=== PATIENT | female | born 1930 | race Caucasian/White ===

== ENCOUNTER 2016-11-15 13:32 | Emergency (ER) | payer MEDICARE ==
--- NOTE | 2016-11-15 15:07 | PN ---
Progress Note - Progress Note Note: Laceration Cleaned with 500cc, used 1% lidocaine local on face, and topical on finger Nose: 1 cm laceration on bridge of nose, superifical, cleaned and applied glue to area Face: 1 cm by 1/2 cm laceration placed 1 suture lip: does not cross linh border, 1/2 cm suture, placed 1 suture nonabsorbable left middle finger: 1 cm flap like laceration placed 1 suture and splinted with finger splint
--- NOTE | 2016-11-15 15:34 | RAD ---
HISTORY: Head trauma COMPARISONS: None TECHNIQUE: Multiple contiguous axial CT scans were obtained of the head without intravenous contrast. FINDINGS: HEMORRHAGE/INFARCT: There is no hemorrhage or acute infarct. MASSES/SHIFT: There is no mass or shift. EXTRA-AXIAL SPACES: There are no extra-axial fluid collections. SULCI AND VENTRICLES: The sulci and ventricles are normal in size and position for the patient's stated age. CEREBRUM: There is hypoattenuation of the periventricular and subcortical white matter. BRAINSTEM: There are no focal parenchymal abnormalities. CEREBELLUM: There are no focal parenchymal abnormalities. VESSELS: Atheromatous PARANASAL SINUSES: The paranasal sinuses are clear. ORBITS: The orbits are unremarkable. BONES AND SOFT TISSUE: No bone or soft tissue abnormalities are noted. OTHER: None IMPRESSION: NO ACUTE INTRACRANIAL PATHOLOGY. CHRONIC SMALL VESSEL ISCHEMIC CHANGES.
--- NOTE | 2016-11-15 15:36 | RAD ---
HISTORY: Trauma, trauma COMPARISONS: None TECHNIQUE: Multiple contiguous axial CT scans were obtained of the cervical spine without intravenous contrast, with coronal and sagittal multiplanar reformations. FINDINGS: BRAIN: The visualized brain is unremarkable CENTRAL CANAL: Evaluation of the central canal is limited on CT technique; however, there is no obvious canalicular mass or epidural hemorrhage. ALIGNMENT: There is straightening with mild reversal of the normal cervical lordosis. VERTEBRAL BODIES: There is diffuse osteopenia. There is no displaced fracture. There is multilevel anterolateral marginal osteophyte formation. JOINTS: There is diffuse uncovertebral and facet osteoarthritic change. 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 There is no subluxation or dislocation. MUSCULATURE: Unremarkable INTERVERTEBRAL DISCS: There is diffuse loss of intervertebral disc height. AXIAL IMAGES: On axial images, there is neural foraminal narrowing at C6-C7. There is no significant osseous central canal stenosis. SOFT TISSUES: There is calcification of the carotid bifurcations. The prevertebral fat stripe is preserved. OTHER: None. IMPRESSION: DEGENERATIVE DISC DISEASE AND OSTEOARTHRITIS. NO ACUTE OSSEOUS INJURY TO THE CERVICAL SPINE
--- NOTE | 2016-11-15 15:38 | RAD ---
INDICATION: Facial trauma. COMPARISON: There are no prior studies available for comparison. TECHNIQUE: Contiguous axial sections of the axial images of the facial bones were obtained and reconstructed in the coronal and sagittal planes. FINDINGS: Soft tissue swelling is noted anterior to the left frontal bone and sinus. The ngo of the orbits and maxillary sinuses appear intact. The zygomatic arches appear intact. There is no evidence for a fracture of the mandible. There appears to be a nondisplaced fracture of the nasal bone bone age indeterminate. There is moderate deviation of the nasal septum toward the right side. The pterygoid plates appear intact. The paranasal sinuses appear clear. IMPRESSION: NONDISPLACED FRACTURE OF THE RIGHT NASAL BONE, AGE INDETERMINATE.
[2016-11-15 16:43] LABS: Hematocrit 33 % (35-47); Hemoglobin 10.9 g/dl (12.0-16.0); Mean Corpuscular HGB Conc 33 g/dl (31-36); Mean Corpuscular Hemoglobin 28 pg (27-31); Mean Corpuscular Volume 85 fL (80-97); Mean Platelet Volume 10 um3 (7.4-10.4); Red Blood Count 3.88 10^6/ul (4.0-5.4); Red Cell Distribution Width 20 % (10.5-15); White Blood Count 8.9 10^3/ul (3.5-10.8)
[2016-11-15 16:58] LABS: Albumin 3.7 g/dL (3.2-5.2); BUN/Creatinine Ratio 16.9 (8-20); Calcium 9.8 mg/dL (8.6-10.3); EGFR Non-African American 65.3 (>60); Globulin 3.7 g/dL (2-4); Potassium 3.6 mmol/L (3.5-5.0); Total Bilirubin 0.5 mg/dL (0.2-1.0); Total Protein 7.4 g/dL (6.4-8.9)
[2016-11-15] MEDS ORDERED: HYDROcodone/ACETAMIN 5-325 MG* 1 TAB PO ONE (17:15)
[2016-11-15 17:45] VITALS: BP 160/59
--- NOTE | 2016-11-15 17:51 | ED ---
raya Diaz Timothy, scribed for Leon Sepulveda MD on 11/15/16 at 1406 . Head Injury - HPI Summary HPI Summary: Arlene Lopez is an 86 yo female presenting to [facility] with abrasions on her lip, nose, right hand and near her left eye, as well as a laceration inside her mouth S/P a fall from standing height after tripping on a curb at 1300 today. She states she did not lose consciousness, but did loosen some teeth. She did not bite her tongue. She denies any visual changes, neck pain, shoulder pain, hip pain. She is on blood thinners. Her MHx includes Afib, HLD, pacemaker, CAD, mild dementia, anorexia nervosa, arthritis. Her PCP is Dr. Reyez. - History Of Current Complaint Stated Complaint: FALL / FACIAL LAC Time Seen by Provider: 11/15/16 14:01 Hx Obtained From: Patient Mechanism Of Injury: Fall From A Standing Position Onset/Duration: Started Minutes Ago, Still Present Onset of Pain: Immediate Severity Currently: Moderate Severity Initially: Moderate Pain Scale Used: 0-10 Numeric Location of Head Injury: Frontal Location: Discrete At: - face Associated Signs And Symptoms: Other: - abrasion to lip, left eye region, nose. Laceration inside mouth Anticoagulant Therapy: Blood Thinners - Allergies/Home Medications Allergies/Adverse Reactions: Allergies Allergy/AdvReac Type Severity Reaction Status Date / Time No Known Allergies Allergy Verified 12/15/14 20:35 PMH/Surg Hx/FS Hx/Imm Hx Endocrine/Hematology History: Denies: Hx Diabetes, Hx Anemia Cardiovascular History: Reports: Hx Auto Implanted Cardiovert Defib - pacemaker , Hx Coronary Artery Disease - CHOLESTEROL CONTROL WITH MEDS, Hx Hypercholesterolemia, Hx Pacemaker/ICD, Other Cardiovascular Problems/Disorders Denies: Hx Congestive Heart Failure, Hx Hypertension GI History: Denies: Hx Jaundice History: Denies: Hx Renal Disease Musculoskeletal History: Reports: Hx Arthritis - BILATERAL KNEES Sensory History: Reports: Hx Cataracts - BILATERAL, Hx Contacts or Glasses - READING GLASSES Denies: Hx Hearing Aid Opthamlomology History: Reports: Hx Cataracts - BILATERAL, Hx Contacts or Glasses - READING GLASSES Neurological History: Reports: Hx Dementia - mild - Surgical History Surgery Procedure, Year, and Place: PACEMAKER, MRI CONTRAINDICATED Hx Anesthesia Reactions: No Infectious Disease History: No Infectious Disease History: Denies: Traveled Outside the [place] in Last 30 Days - Family History Known Family History: Positive: Cardiac Disease, Hypertension Negative: Diabetes - Social History Alcohol Use: None Substance Use Type: Reports: None Smoking Status (MU): Never Smoked Tobacco Review of Systems Constitutional: Negative Eyes: Other - abrasion near left eye ENT: Other - laceration inside mouth Positive: Dental Pain - broken teeth Cardiovascular: Negative Respiratory: Negative Gastrointestinal: Negative Genitourinary: Negative Musculoskeletal: Negative Positive: Other - abrasion to upper lip, nose, left hand Positive: Headache Psychological: Normal All Other Systems Reviewed And Are Negative: Yes Physical Exam - Summary Physical Exam Summary: The patient is well-nourished in no acute distress and in no acute pain. The skin is warm and dry and skin color reflects adequate perfusion. There is a 0.5 cm laceration on her left third finger proximal to the IP joint. HEENT: The head is normocephalic and atraumatic. The pupils are equal and reactive. The conjunctivae are clear and without drainage. Nares are patent and without drainage. Mouth reveals moist mucous membranes and the throat is without erythema and exudate. The left frontal incisor is loose. There is a laceration on the inside of the right side of her upper lip, as well as the outside of the right side of her upper lip. The external ears are intact. The ear canals are patent and without drainage. The tympanic membranes are intact. There is no hemotympanum. There is ecchymosis around the left eye, with no step- off. Neck is supple with full range of motion and non-tender. There are no carotid bruits. There is no neck vein distension. Respiratory: Chest is non-tender. Lungs are clear to auscultation and breath sounds are symmetrical and equal. Cardiovascular: Hear is regular rate and rhythm. There is no murmur or rub auscultated. There is no peripheral edema and pulses are symmetrical and equal. Abdomen: The abdomen is soft and non-tender. There are normal bowel sounds heard in all four quadrants and there is no organomegaly palpated. Musculoskeletal: There is no back pain noted. Extremities are non-tender with full range of motion. There is good capillary refill. There is pedal edema but no calf tenderness elicited. Neurological: Patient is alert and oriented to person, place and time. The patient has symmetrical motor strength in all four extremities. Cranial nerves are grossly intact. Deep tendon reflexes are symmetrical and equal in all four extremities. Psychiatric: The patient has an appropriate affect and does not exhibit any anxiety or depression. Triage Information Reviewed: Yes Vital Signs On Initial Exam: Initial Vitals Temp Pulse Resp BP Pulse Ox 97.7 F 63 20 167/66 98 11/15/16 13:54 11/15/16 13:54 11/15/16 13:54 11/15/16 13:54 11/15/16 13:54 Vital Signs Reviewed: Yes Diagnostics - Vital Signs Vital Signs Temp Pulse Resp BP Pulse Ox 11/15/16 13:54 97.7 F 63 20 167/66 98 - Laboratory Lab Results: Lab Results 11/15/16 11/15/16 11/15/16 Range/Units 16:34 16:34 16:34 WBC 8.9 (3.5-10.8) 10^3/ul RBC 3.88 L (4.0-5.4) 10^6/ul Hgb 10.9 L (12.0-16.0) g/dl Hct 33 L (35-47) % MCV 85 (80-97) fL MCH 28 (27-31) pg MCHC 33 (31-36) g/dl RDW 20 H (10.5-15) % Plt Count 258 (150-450) 10^3/ul MPV 10 (7.4-10.4) um3 Neut % (Auto) 69.7 (38-83) % Lymph % (Auto) 19.7 L (25-47) % [place] % (Auto) 7.2 (1-9) % Eos % (Auto) 2.1 (0-6) % Baso % (Auto) 1.3 (0-2) % Absolute Neuts (auto) 6.2 (1.5-7.7) 10^3/ul Absolute Lymphs (auto) 1.8 (1.0-4.8) 10^3/ul Absolute Monos (auto) 0.6 (0-0.8) 10^3/ul Absolute Eos (auto) 0.2 (0-0.6) 10^3/ul Absolute Basos (auto) 0.1 (0-0.2) 10^3/ul Absolute Nucleated RBC 0 10^3/ul Nucleated RBC % 0 INR (Anticoag Therapy) 1.42 H (0.89-1.11) Sodium 141 (133-145) mmol/L Potassium 3.6 (3.5-5.0) mmol/L Chloride 101 (101-111) mmol/L Carbon Dioxide 32 (22-32) mmol/L Anion Gap 8 (2-11) mmol/L BUN 14 (6-24) mg/dL Creatinine 0.83 (0.51-0.95) mg/dL Est GFR ( Amer) 84.0 (>60) Est GFR (Non-Af Amer) 65.3 (>60) BUN/Creatinine Ratio 16.9 (8-20) Glucose 115 H (70-100) mg/dL Calcium 9.8 (8.6-10.3) mg/dL Total Bilirubin 0.50 (0.2-1.0) mg/dL AST 19 (13-39) U/L ALT 11 (7-52) U/L Alkaline Phosphatase 96 (34-104) U/L Total Protein 7.4 (6.4-8.9) g/dL Albumin 3.7 (3.2-5.2) g/dL Globulin 3.7 (2-4) g/dL Albumin/Globulin Ratio 1.0 (1-3) Result Diagrams: 11/15/16 16:34 11/15/16 16:34 Lab Statement: Any lab studies that have been ordered have been reviewed, and results considered in the medical decision making process. - CT brain CT Interpretation: No Acute Changes - IMPRESSION: NO ACUTE INTRACRANIAL PATHOLOGY. CHRONIC SMALL VESSEL ISCHEMIC CHANGES. CT Interpretation Completed By: Radiologist C-Spine CT Interpretation: No Acute Changes - IMPRESSION: DEGENERATIVE DISC DISEASE AND OSTEOARTHRITIS. NO ACUTE OSSEOUS INJURY TO THE CERVICAL SPINE CT Interpretation Completed By: Radiologist Maxillofacial CT Interpretation: Positive (See Comments) - IMPRESSION: NONDISPLACED FRACTURE OF THE RIGHT NASAL BONE, AGE INDETERMINATE. CT Interpretation Completed By: Radiologist Re-Evaluation - Re-Evaluation First Eval Re-Evaluation Time: 16:28 Change: Improved Comment: Pt has had her lacerations sutured and glued. She is informed of the results of her imaging studies. Second Eval Re-Evaluation Time: 17:01 Change: Unchanged Comment: Pt is agreeable to current course of Tx. She does not want any pain medication Rx's sent to a pharmacy at this time. Head Injury Course/Dx Assessment/Plan: Arlene Lopez is an 86 yo female presenting to [facility] with facial abrasions, loose teeth, and laceration inside her mouth S/P tripping and falling on a curb at 1300 today. Pt refused an X-ray of her left hand. Lacerationa and abrasion sterilization and repair, and splinting was performed by Edwina COLEY. After clinical examination, review of her imaging studies ( see documentation) and review of her lab work, she will be discharged home with appropriate diagnoses and instructions. She does not want any prescription for pain medications sent to a pharmacy at this time. - Diagnoses Differential Diagnosis/HQI/PQRI: Concussion Without LOC, Intracranial Bleed, Laceration, Nasal Fracture, Skull Fracture, Zygomatic Fracture, Other Provider Diagnoses: Head contusion, facial laceration with repair, Laceration of left middle finger , nasal laceration with repair, Nasal fracture, Loose, teeth - Physician Notifications Discussed Care Of Patient With: 1706 - Dr. Reyez (hospitalist group [facility]) - discussed Pt condition and Pt's warfarin Rx. Pt takes 2.5 mg warfarin Tuesday and Tuesday, 1 mg other days. She may cancel her appointment for tomorrow and reschedule for 5 days and 10 days for suture removal. Discharge - Discharge Plan Condition: Stable Disposition: HOME Patient Education Materials: Nasal Fracture (ED), Laceration (ED), Acute Dental Trauma (ED), Contusion in Adults (ED), Splint Care (ED), Scalp Contusion in Adults (ED), Facial Contusion (ED), Facial Laceration (ED) Referrals: Murtzaa Reyez MD [Primary Care Provider] - 2 Days Additional Instructions: Please follow up with your primary care physician and a dentist regarding your visit to the emergency department today. You may cancel your appointment with Dr. Reyez tomorrow, and instead reschedule for removal of your facial sutures in 5 days, and your hand suture within 2 weeks. Have facial sutures removed in 5 days, hand suture needs to be removed in 10-14 days Keep finger in splint for 5 days Keep sutures clean dry for 24 hours Do not scrub areas Glue will fall off on own Return to the emergency department with any new or recurring symptoms. The documentation as recorded by the raya wetzel Timothy accurately reflects the service I personally performed and the decisions made by me, Leno Sepulveda MD.
== END 2016-11-15 17:44 | disposition home or self-care (01) ==
LOC: ED 13:32
DX: S00.93XA Contusion of unspecified part of head, initial encounter (principal); S02.2XXA Fracture of nasal bones, initial encounter for closed fracture; S61.213A Laceration without foreign body of left middle finger without damage to nail, initial encounter; S01.21XA Laceration without foreign body of nose, initial encounter; S00.511A Abrasion of lip, initial encounter; K08.89 Other specified disorders of teeth and supporting structures; W19.XXXA Unspecified fall, initial encounter; Y93.9 Activity, unspecified; Y92.9 Unspecified place or not applicable
CPT/HCPCS: 36415; 70450; 70486; 72125; 80053; 85025; 85610; 99282

== ENCOUNTER 2016-11-30 12:30 | Inpatient (IN) | payer MEDICARE ==
[2016-11-30] MEDS ORDERED: NS 0.9% 1000 ML* 1,000 ML IV ONE ×2 (13:11→17:07)
[2016-11-30 13:24] LABS: Hematocrit 35 % (35-47); Hemoglobin 11.2 g/dl (12.0-16.0); Mean Corpuscular HGB Conc 32 g/dl (31-36); Mean Corpuscular Hemoglobin 28 pg (27-31); Mean Corpuscular Volume 85 fL (80-97); Mean Platelet Volume 10 um3 (7.4-10.4); Red Blood Count 4.07 10^6/ul (4.0-5.4); Red Cell Distribution Width 19 % (10.5-15); White Blood Count 22.2 10^3/ul (3.5-10.8)
[2016-11-30 13:25] LABS: Add Diff/Slide Review? Slide Review Added; Comments Flag Yes
[2016-11-30 13:36] LABS: ALT 21 U/L (7-52); AST 39 U/L (13-39); Albumin 3.6 g/dL (3.2-5.2); Alkaline Phosphatase 96 U/L (34-104); Anion Gap 6 mmol/L (2-11); BUN/Creatinine Ratio 20.3 (8-20); Blood Urea Nitrogen 14 mg/dL (6-24); CO2 Carbon Dioxide 30 mmol/L (22-32); Calcium 9.7 mg/dL (8.6-10.3); Chloride 100 mmol/L (101-111); Creatine Kinase 367 U/L (10-223); EGFR Non-African American 80.9 (>60); Globulin 3.7 g/dL (2-4); Glucose 145 mg/dL (70-100); Lipase < 10 U/L (11.0-82.0); Magnesium 1.9 mg/dL (1.9-2.7); Potassium 3.2 mmol/L (3.5-5.0); Sodium 136 mmol/L (133-145); Total Protein 7.3 g/dL (6.4-8.9)
[2016-11-30 13:48] LABS: Troponin I 0.07 ng/mL (<0.04)
--- NOTE | 2016-11-30 13:52 | RAD ---
Indication: Head injury. CT of the brain was performed without IV contrast. Ventricular structures are midline. No midline shift is noted. The extraction spaces are unremarkable. There is no evidence of intracranial mass or hemorrhage. There is hyperostosis of the frontal bones bilaterally which is unchanged. When compared to previous exam of November 15, 2016 no significant change is noted. Mastoid air cells and paranasal sinuses are otherwise unremarkable. Multiple metallic fragments are noted in the right temporal scalp. IMPRESSION: No intracranial mass or hemorrhage is noted. Chronic ischemic White matter change is noted.
--- NOTE | 2016-11-30 13:55 | RAD ---
INDICATION: Cervical pain with palpation post fall yesterday. COMPARISON: Recent exam of November 15, 2016 CT. TECHNIQUE: Multidetector CT images foramen magnum to lung apices without contrast. Multiplanar reformation. REPORT: Few foci of gas within the veins most likely reflects sequela of preceding venipuncture. Negative for soft tissue hematoma. Negative for cervical vertebral fracture or facet subluxation. Multilevel degenerative spondylosis and facet joint osteoarthritis. At C3-C4 uncinate process spurring and facet joint osteoarthritis results in severe RIGHT foraminal stenosis. At C4-C5 there is mild dorsal spondylitic ridging which results in mild impression on the ventral margin of the thecal sac. Negative for significant acquired central canal or foraminal stenosis. At C5-C6 dorsal spondylitic ridging results in only slight impression on the ventral margin of the thecal sac. Uncinate process spurring and facet joint osteoarthritis results in mild LEFT foraminal stenosis. At C6-C7 dorsal spondylitic ridging results in mild acquired central canal stenosis. Uncinate process spurring and facet joint osteoarthritis results in moderate bilateral foraminal stenosis. IMPRESSION: Negative for traumatic cervical spine injury. 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
[2016-11-30 14:02] LABS: TSH (Thyroid Stimulating Horm) 0.43 mcIU/mL (0.34-5.60)
[2016-11-30 14:05] LABS: Tear Drop Cells 1+; Toxic Granulation 1+
--- NOTE | 2016-11-30 14:53 | RAD ---
Indication: Recurrent pain left hip pain after fall. Single view of the chest demonstrates cardiomegaly. Pacemaker leads are in place. Mild interstitial prominence is noted consistent with vascular congestion. No alveolar consolidation is noted. IMPRESSION: Cardiomegaly with interstitial edema consistent with vascular congestion. Pacemaker leads are in place.
--- NOTE | 2016-11-30 14:54 | RAD ---
INDICATION: Hip pain. Fall. COMPARISON: CT pelvis December 22, 2014 TECHNIQUE: An AP view of the pelvis and AP views of the hip in neutral and abducted position were obtained FINDINGS: Bones: There are no acute bony findings. There is underlying osteopenia Joint spaces: There is mild symmetric narrowing about both hip joint spaces with mild sclerosis about the acetabula. SI joints/symphysis: The SI joints and symphysis are intact. Other: Vascular calcifications IMPRESSION: NO PLAIN RADIOGRAPHIC EVIDENCE OF HIP FRACTURE
[2016-11-30] MEDS ORDERED: Ondansetron INJ* 2 MG/ML VIAL IV PRN (18:09)
--- NOTE | 2016-11-30 18:13 | ED ---
Heath Diaz Billy, scribed for Terrell Mathews MD on 11/30/16 at 1354 . Adult Trauma - HPI Summary HPI Summary: Patient is an 86 year-old female coming to [facility] for evaluation of a fall approximately 12 hours ago. Her son found the patient on the floor of the living room today, and the patient states that she fell after brushing her feet and was unable to pick herself back up. She denies any LOC or syncope; she says she "just went down." Son states that the patient was found laying on her right side. Patient does not know if she hit her head, but she reports neck pain. Left hip pain, as well. Denies any chest pain or abdominal pain. Son states that the patient was vomiting yesterday. - History of Current Complaint Chief Complaint: ED Stated Complaint: FALL Time Seen by Provider: 11/30/16 13:02 Hx Obtained From: Patient, Family/Kitchen Runner - son Mechanism of Injury: Fall Loss of Consciousness: no loss of consciousness Onset/Duration: Started Hours Ago Onset Severity: Moderate Current Severity: Moderate Pain Intensity: 3 Pain Scale Used: 0-10 Numeric Location: Neck, Extremities Aggravating Factor(s): Movement Alleviating Factor(s): Nothing Associated Signs & Symptoms: Negative: Chest Pain, Abdominal Pain, Loss of Consciousness - Additional Pertinent History Primary Care Physician: [id number] - Allergy/Home Medications Allergies/Adverse Reactions: Allergies Allergy/AdvReac Type Severity Reaction Status Date / Time No Known Allergies Allergy Verified 12/15/14 20:35 Home Medications: Home Medications Calcium Carbonate-Cholecalcife [Calcium 600+D3 600-400 mg-Unit] 1 tab PO DAILY 11/30/16 [History Confirmed 11/30/16] Cholecalciferol TAB* [Vitamin D TAB*] 1,000 unit PO DAILY 11/30/16 [History Confirmed 11/30/16] Diltiazem HCl Extended Release [Diltiazem HCl ER] 180 mg PO DAILY 11/30/16 [ History Confirmed 11/30/16] Docusate CAP* [Colace Cap*] 100 mg PO BID 11/30/16 [History Confirmed 11/30/16] Ferrous Sulfate TAB* 325 mg PO DAILY 11/30/16 [History Confirmed 11/30/16] Multivitamins/Minerals TAB* [Theragran/minerals TAB*] 1 tab PO DAILY 11/30/16 [ History Confirmed 11/30/16] Hardy-3 Fatty Acids (Nf) [Fish Oil (NF)] 1,000 mg PO DAILY 11/30/16 [History Confirmed 11/30/16] Simvastatin TAB(NF) [Zocor(NF)] 20 mg PO BEDTIME 11/30/16 [History Confirmed 12/13] Warfarin TAB(*) [Coumadin TAB(*)] 2.5 mg PO MOTUWETHFRSA 11/30/16 [History Confirmed 11/30/16] Warfarin TAB(*) [Coumadin TAB(*)] 5 mg PO HATCH 11/30/16 [History Confirmed ] PMH/Surg Hx/FS Hx/Imm Hx Endocrine/Hematology History: Denies: Hx Diabetes, Hx Anemia Cardiovascular History: Reports: Hx Auto Implanted Cardiovert Defib - pacemaker , Hx Coronary Artery Disease - CHOLESTEROL CONTROL WITH MEDS, Hx Hypercholesterolemia, Hx Pacemaker/ICD, Other Cardiovascular Problems/Disorders Denies: Hx Congestive Heart Failure, Hx Hypertension GI History: Denies: Hx Jaundice History: Denies: Hx Renal Disease Musculoskeletal History: Reports: Hx Arthritis - BILATERAL KNEES Sensory History: Reports: Hx Cataracts - BILATERAL, Hx Contacts or Glasses - READING GLASSES Denies: Hx Hearing Aid Opthamlomology History: Reports: Hx Cataracts - BILATERAL, Hx Contacts or Glasses - READING GLASSES Neurological History: Reports: Hx Dementia - mild - Surgical History Surgery Procedure, Year, and Place: PACEMAKER, MRI CONTRAINDICATED Hx Anesthesia Reactions: No Infectious Disease History: No Infectious Disease History: Denies: Traveled Outside the [place] in Last 30 Days - Family History Known Family History: Positive: Cardiac Disease, Hypertension Negative: Diabetes - Social History Alcohol Use: None Substance Use Type: Reports: None Smoking Status (MU): Never Smoked Tobacco Review of Systems Negative: Chest Pain Positive: Vomiting - yesterday. Negative: Abdominal Pain Positive: Other - neck pain, left hip pain Negative: Syncope All Other Systems Reviewed And Are Negative: Yes Physical Exam Triage Information Reviewed: Yes Vital Signs On Initial Exam: Initial Vitals Pulse Resp BP Pulse Ox 90 24 167/78 100 11/30/16 12:36 11/30/16 12:36 11/30/16 12:36 11/30/16 12:36 Vital Signs Reviewed: Yes Appearance: Positive: Well-Appearing, No Pain Distress Skin: Positive: Warm, Skin Color Reflects Adequate Perfusion, Dry, Other - Abrasion/ecchymosis of the right knee. ENT: Positive: Other - Dry oral mucosa Neck: Positive: Supple, Nontender Respiratory/Lung Sounds: Positive: Clear to Auscultation, Breath Sounds Present Cardiovascular: Positive: IRR Abdomen Description: Positive: Nontender, Soft Bowel Sounds: Positive: Present Musculoskeletal: Positive: Pain @ - Left hip, Other - She is able to move both lower extremities, although they are generally weak. Neurological: Positive: Normal, Sensory/Motor Intact, Alert, Oriented to Person Place, Time Psychiatric: Positive: Normal, Affect/Mood Appropriate AVPU Assessment: Alert Diagnostics - Vital Signs Vital Signs Temp Pulse Resp BP Pulse Ox 11/30/16 12:54 98.9 F 93 17 146/70 98 11/30/16 12:36 90 24 167/78 100 - Laboratory Lab Results: Lab Results 11/30/16 11/30/16 11/30/16 Range/Units 13:00 13:00 13:00 WBC 22.2 H (3.5-10.8) 10^3/ul RBC 4.07 (4.0-5.4) 10^6/ul Hgb 11.2 L (12.0-16.0) g/dl Hct 35 (35-47) % MCV 85 (80-97) fL MCH 28 (27-31) pg MCHC 32 (31-36) g/dl RDW 19 H (10.5-15) % Plt Count 221 (150-450) 10^3/ul MPV 10 (7.4-10.4) um3 Neut % (Auto) 86.1 H (38-83) % Lymph % (Auto) 6.0 L (25-47) % [place] % (Auto) 7.5 (1-9) % Eos % (Auto) 0 (0-6) % Baso % (Auto) 0.4 (0-2) % Absolute Neuts (auto) 19.1 H (1.5-7.7) 10^3/ul Absolute Lymphs (auto) 1.3 (1.0-4.8) 10^3/ul Absolute Monos (auto) 1.7 H (0-0.8) 10^3/ul Absolute Eos (auto) 0 (0-0.6) 10^3/ul Absolute Basos (auto) 0.1 (0-0.2) 10^3/ul Absolute Nucleated RBC 0.01 10^3/ul Nucleated RBC % 0 Toxic Granulation 1+ Normal RBC Morphology Not Reportable Tear Drop Cells 1+ Elliptocytes 2+ INR (Anticoag Therapy) 1.65 H (0.89-1.11) APTT 29.3 (26.0-36.3) seconds Sodium 136 (133-145) mmol/L Potassium 3.2 L (3.5-5.0) mmol/L Chloride 100 L (101-111) mmol/L Carbon Dioxide 30 (22-32) mmol/L Anion Gap 6 (2-11) mmol/L BUN 14 (6-24) mg/dL Creatinine 0.69 (0.51-0.95) mg/dL Est GFR ( Amer) 104.0 (>60) Est GFR (Non-Af Amer) 80.9 (>60) BUN/Creatinine Ratio 20.3 H (8-20) Glucose 145 H (70-100) mg/dL Lactic Acid (0.5-2.0) mmol/L Calcium 9.7 (8.6-10.3) mg/dL Magnesium 1.9 (1.9-2.7) mg/dL Total Bilirubin 1.00 (0.2-1.0) mg/dL AST 39 (13-39) U/L ALT 21 (7-52) U/L Alkaline Phosphatase 96 (34-104) U/L Total Creatine Kinase 367 H (10-223) U/L CK-MB (CK-2) 5.4 (0.6-6.3) ng/mL Troponin I 0.07 H* (<0.04) ng/mL C-Reactive Protein 157.70 H (< 5.00) mg/L B-Natriuretic Peptide ( - 100) pg/mL Total Protein 7.3 (6.4-8.9) g/dL Albumin 3.6 (3.2-5.2) g/dL Globulin 3.7 (2-4) g/dL Albumin/Globulin Ratio 1.0 (1-3) Lipase < 10 L (11.0-82.0) U/L TSH 0.43 (0.34-5.60) mcIU/mL 11/30/16 11/30/16 Range/Units 13:00 13:00 WBC (3.5-10.8) 10^3/ul RBC (4.0-5.4) 10^6/ul Hgb (12.0-16.0) g/dl Hct (35-47) % MCV (80-97) fL MCH (27-31) pg MCHC (31-36) g/dl RDW (10.5-15) % Plt Count (150-450) 10^3/ul MPV (7.4-10.4) um3 Neut % (Auto) (38-83) % Lymph % (Auto) (25-47) % [place] % (Auto) (1-9) % Eos % (Auto) (0-6) % Baso % (Auto) (0-2) % Absolute Neuts (auto) (1.5-7.7) 10^3/ul Absolute Lymphs (auto) (1.0-4.8) 10^3/ul Absolute Monos (auto) (0-0.8) 10^3/ul Absolute Eos (auto) (0-0.6) 10^3/ul Absolute Basos (auto) (0-0.2) 10^3/ul Absolute Nucleated RBC 10^3/ul Nucleated RBC % Toxic Granulation Normal RBC Morphology Tear Drop Cells Elliptocytes INR (Anticoag Therapy) (0.89-1.11) APTT (26.0-36.3) seconds Sodium (133-145) mmol/L Potassium (3.5-5.0) mmol/L Chloride (101-111) mmol/L Carbon Dioxide (22-32) mmol/L Anion Gap (2-11) mmol/L BUN (6-24) mg/dL Creatinine (0.51-0.95) mg/dL Est GFR ( Amer) (>60) Est GFR (Non-Af Amer) (>60) BUN/Creatinine Ratio (8-20) Glucose (70-100) mg/dL Lactic Acid 1.9 (0.5-2.0) mmol/L Calcium (8.6-10.3) mg/dL Magnesium (1.9-2.7) mg/dL Total Bilirubin (0.2-1.0) mg/dL AST (13-39) U/L ALT (7-52) U/L Alkaline Phosphatase (34-104) U/L Total Creatine Kinase (10-223) U/L CK-MB (CK-2) (0.6-6.3) ng/mL Troponin I (<0.04) ng/mL C-Reactive Protein (< 5.00) mg/L B-Natriuretic Peptide 404 H ( - 100) pg/mL Total Protein (6.4-8.9) g/dL Albumin (3.2-5.2) g/dL Globulin (2-4) g/dL Albumin/Globulin Ratio (1-3) Lipase (11.0-82.0) U/L TSH (0.34-5.60) mcIU/mL Result Diagrams: 11/30/16 13:00 11/30/16 13:00 Lab Statement: Any lab studies that have been ordered have been reviewed, and results considered in the medical decision making process. - Radiology CXR Radiology Interpretation Completed By: Radiologist - Cardiomegaly with interstitial edema consistent with vascular congestion. Pacemaker leads are in place. Left Hip Xray Radiology Interpretation Completed By: Radiologist - Cardiomegaly with interstitial edema consistent with vascular congestion. Pacemaker leads are in place. - CT C-spine CT Interpretation Completed By: Radiologist - Negative for traumatic cervical spine injury. 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 Brain CT Interpretation Completed By: Radiologist - No intracranial mass or hemorrhage is noted. Chronic ischemic White matter change is noted. - EKG 1251 EKG Interpretation: NSR 90 bpm, diffuse T-wave flattening Adult Trauma Course/Dx - Course Course Of Treatment: NO CRITICAL CARE TIME. Assessment/Plan: ADMIT HOSPITALIST STABLE. - Diagnoses Provider Diagnoses: Weakness, Elevated troponin, Dehydration, CHF (congestive heart failure) - Physician Notifications Discussed Care Of Patient With: Dr. Hayes (hospitalist) @ 1500. Dr. Mihaela Hinton (PCP on-call for Dr. Reyez) @ 1709: patient care discussed. Requests hospitalist to admit. Discharge - Discharge Plan Condition: Stable Disposition: ADMITTED TO [facility] documentation as recorded by the Heath wetzel Billy accurately reflects the service I personally performed and the decisions made by me, Terrell Mathews MD.
[2016-11-30] MEDS ORDERED: NS 0.9% 1000 ML* 1,000 ML IV SCH (18:15)
[2016-11-30] MEDS ORDERED: Potassium Chlor TAB* 20 MEQ TAB.ER PO ONE (18:20)
[2016-11-30 19:00] LABS: Urine Bacteria Absent (Absent); Urine Bilirubin Negative (Negative); Urine Glucose 1+(50 mg/dL) (Negative); Urine Nitrite Negative (Negative)
--- NOTE | 2016-11-30 19:39 | RAD ---
INDICATION: Right shoulder pain after a fall the previous evening COMPARISON: None. TECHNIQUE: 3 views of the right shoulder were obtained. FINDINGS: The adequately corticated bones are in normal alignment. Degenerative changes include mild sclerotic change of the bony glenoid labrum. There is mild marginal osteophyte formation at the acromioclavicular joint. No fracture, dislocation or focal bony abnormality is seen. IMPRESSION: MILD DEGENERATIVE CHANGES WITHOUT RADIOGRAPHICALLY APPARENT FRACTURE OR DISLOCATION. If the patient's symptoms persist, follow-up imaging is recommended.
--- NOTE | 2016-11-30 19:43 | RAD ---
Indication: Pain. Comparison: Left hip from the same date acquired at 1426 hours Technique: 6 views of the left femur, a single view of the knee and 3 views of the left lower leg were obtained at 1904 hours. Report: Degenerative changes include mild narrowing of the hip joint with sclerotic change of the acetabular roof. Mild degenerative changes of the left knee include medial greater than lateral narrowing of the compartments. No large knee effusion is identified. The visualized bones are adequately corticated and well aligned. There is no acute fracture, dislocation or other focal abnormality. Incidental note is made of coarse calcification of the superficial femoral artery and to a lesser extent the popliteal and infrapopliteal arteries. IMPRESSION: 1. Degenerative changes of the left hip and knee as described above without radiographically apparent fracture or dislocation. 2. Incidentally noted is advanced calcified atherosclerosis of the visualized left lower extremity arteries. Please correlate to signs and symptoms of arterial insufficiency. If the patient's symptoms persist, follow-up imaging is recommended.
[2016-11-30] MEDS: Atorvastatin* 10 MG TAB PO SCH (20:36)
[2016-11-30] MEDS: Warfarin TAB(*) 2.5 MG PO SCH (20:36)
[2016-11-30] MEDS: Metoprolol Tartrate TAB* 50 mg PO SCH (20:36)
[2016-11-30] MEDS: Acetaminophen TAB* 325 MG PO PRN (20:40)
[2016-11-30] MEDS: Docusate CAP* 100 MG PO SCH (20:41)
[2016-11-30 21:03] LABS: Hematocrit 35 % (35-47); Hemoglobin 11.3 g/dl (12.0-16.0); Mean Corpuscular HGB Conc 32 g/dl (31-36); Mean Corpuscular Hemoglobin 28 pg (27-31); Mean Corpuscular Volume 86 fL (80-97); Mean Platelet Volume 10 um3 (7.4-10.4); Red Blood Count 4.11 10^6/ul (4.0-5.4); Red Cell Distribution Width 19 % (10.5-15); White Blood Count 21.1 10^3/ul (3.5-10.8)
[2016-11-30 21:04] LABS: Add Diff/Slide Review? Slide Review Added; Comments Flag Yes
[2016-11-30 21:18] LABS: BUN/Creatinine Ratio 21.3 (8-20); Calcium 9.6 mg/dL (8.6-10.3); EGFR African American 119.9 (>60); EGFR Non-African American 93.2 (>60); Potassium 3.1 mmol/L (3.5-5.0)
[2016-11-30 21:24] LABS: Troponin I 0.09 ng/mL (<0.04)
--- NOTE | 2016-12-01 00:11 | HP ---
HISTORY AND PHYSICAL: DATE OF ADMISSION: 11/30/16 PRIMARY CARE PROVIDER: Murtaza Reyez MD. ATTENDING PHYSICIAN WHILE IN THE HOSPITAL: Baljit William MD* (report dictated by Edgardo Castro NP). CHIEF COMPLAINT: Fall. HISTORY OF PRESENT ILLNESS: Ms. Lopez is an 86-year-old female patient that fell yesterday. Actually last night she went to the bathroom. She finished brushing her teeth. She went to sit down and she was putting a cream on her mouth. She got up from the chair after doing this and then she was walking back to her bedroom and she sustained a fall. She fell down. She was unable to get up. She had pain on mostly her right side. She fell and landed on her right side. She did not pass out. She denied any chest pain prior to or after. Denied having any recent fevers or chills. She was unable to reach anybody, so she was on the floor she thinks for between 10 and 12 hours. She was supposed to go to a podiatry appointment today. Her son tried calling her several times, she did not meat pickler, so he decided to go evaluate her and he found her on the floor. The patient says that recently a couple of days ago she did feel nauseous. She had an episode of vomiting. She vomited in her cereal in the morning. She says her stomach had been feeling off, but she denied having any pain. She denies having any fevers or chills, but she was concerned because of the weakness and fall, so she came in, was evaluated in the ER. It was noted that she had an elevated white count, her troponin was mildly elevated and the hospitalist service was asked to evaluate for admission. She denied having any dysuria. Denied having any frequency. There was no loss of consciousness, but admitted to ks, she just could not get up. PAST MEDICAL HISTORY: Significant for: 1. AFib. 2. Hypertension. 3. Hypothyroid. 4. Anxiety. 5. Hyperlipidemia. 6. Diverticulitis. 7. Arthritis. 8. Diabetes. PAST SURGICAL HISTORY: 1. She has had a pacemaker placement. 2. Cataracts extraction. 3. . 4. She has had a temporal artery biopsy. HOME MEDICATIONS: Include: 1. Warfarin 5 mg on Tuesday. 2. Warfarin 2.5 mg Tuesday, Tuesday, Tuesday, , Tuesday, Tuesday. 3. Zocor 20 mg at bedtime. 4. [place]-3 fatty acid 1000 mg daily. 5. Multivitamin 1 tablet daily. 6. Lopressor 50 mg p.o. b.i.d. 7. Synthroid 112 mcg daily. 8. Lasix 20 mg daily. 9. Ferrous sulfate 325 mg daily. 10. Colace 100 mg p.o. b.i.d. 11. Diltiazem 180 mg daily. 12. Vitamin D 1000 units daily. 13. Calcium carbonate 1 tablet p.o. daily. ALLERGIES TO MEDICATIONS: Include no known drug allergies. FAMILY HISTORY: Mother had a history of CVA. Father had a history of cardiac disease. SOCIAL HISTORY: The patient does not smoke. She does not drink. Surrogate decision maker is her son. REVIEW OF SYSTEMS: There is no documented fever. She denies having any chills. There is no significant weight change. There was no double vision. There is no ear discharge. She denies having any rhinorrhea. There is no sore throat. No thyroid enlargement. She denied having any chest pain or any orthopnea. No nocturnal dyspnea. There is no abdominal pain. There was one episode with nausea and vomiting. No dysuria. No frequency. There was no loss of consciousness. No pruritus and no skin ulcerations. Review of 14 systems completed, all others negative. PHYSICAL EXAMINATION GENERAL: At this time, Ms. Lopez is an 86-year-old female patient. She is sitting in the ER stretcher. She does not appear to be in any acute distress. VITAL SIGNS: Blood pressure 168/61 with a pulse of 90, respirations 18, O2 sat 96%, and temperature 98.9. HEENT: Head: Atraumatic. Eyes: EOMs intact. Sclerae anicteric and not pale. Throat: Oral mucosa appeared to be dry. No oropharyngeal erythema. NECK: Supple. LUNGS: Clear to auscultation. No wheezes, rales, or rhonchi. HEART: Sounds S1, S2. Irregularly irregular rate. No murmurs, rubs, or gallops ABDOMEN: Soft, flat, and nontender. Bowel sounds present. EXTREMITIES: Pulses 2+ throughout. She has difficulty moving the left lower extremity with passive range of motion. She has a significant amount of pain in the left femur area and knee actually. She is able to move the right extremity with 5/5 strength. NEUROLOGIC: She is awake, alert, and oriented x3. Tongue midline. Baseball Glove Stuffer are equal. No gross focal deficits. SKIN: Intact. She does have an area of ecchymosis to the right shoulder. Otherwise, the skin was intact. LABORATORY DATA AND DIAGNOSTIC STUDIES: Today reveal WBC of 22.2, RBC of 4.07 , hemoglobin of 11.2, hematocrit 35, platelet count 221. The INR was 1.65. PTT of 29.3. The sodium was 136, potassium 3.2, chloride 100, bicarb 30, BUN 14 , creatinine of 0.69, glucose 145, lactic 1.9, calcium 9.7, magnesium 1.9. Total bili 1.0, AST 39, ALT 21, alk phos 96. Her CK was 364. CK-MB 5.4. Troponin 0.07. CRP was 157. BNP of 404. Albumin 3.6. TSH negative. She had a brain CT obtained today which revealed no intracranial mass or hemorrhages noted. There were chronic ischemic white matter changes noted. She had a cervical spine CT which showed impression: Negative for traumatic cervical spine injury. 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 Chest x-ray showed cardiomegaly with interstitial consistent with vascular congestion. Hip/pelvis x-ray showed no plain radiographic evidence of hip fracture. EKG today showed atrial fibrillation, rate of 90. No ST elevations. T-wave inversions were noted at this point. It was reviewed with a previous EKG, it is similar. Old medical records were reviewed. ASSESSMENT AND PLAN: Ms. Lopez is an 86-year-old female patient coming into the ER today with complaints of fall, on evaluation found to have leukocytosis, also found to have an elevated troponin and CRP. We were asked to evaluate for admission. She will be admitted under inpatient status for: 1. Fall with weakness: Etiology is unclear. It sounds like this was a mechanical fall. Fortunately, her CK is normal. She has been on the floor for 10 hours. I think at this point I will order PT, OT. I am concerned though she is having pain on that left lower extremity and she also has some pain on the right shoulder on exam, so I am going to image these 2 extremities to make sure there is no fracture that has not been identified and will continue to monitor this. 2. Atrial fibrillation, rate controlled: Continue medications as prescribed. Her INR is subtherapeutic, but I am not going to bridge her because of the recent trauma. We will continue the warfarin. 3. Hypertension: Continue medications as prescribed. 4. Hypothyroidism: Continue her Synthroid. 5. Leukocytosis: This may be a leukemoid reaction, but her CRP is up, so I think we need to panculture her, try to get a urine. If any source presents itself, I would treat it. For the time being, she is afebrile. I am going to hold off on treating unless there is an obvious source. 6. Anxiety: Continue with supportive care. 7. Hyperlipidemia: Continue statin therapy. 8. History of diabetes: She states she is no longer diabetic. Her glucose here today was 145. Last A1c 2 years ago was 9.8. I will add on another A1c and will continue to monitor her. May need to put her on a sliding scale depending on what that A1c shows while she is here in the hospital. 9. DVT prophylaxis: I will put her on SCDs. Again, the INR is 1.65. We are not going to put her on heparin because of the recent fall. We will follow. 10. Code status: Full code. 11. Fluids, electrolytes, and nutrition: She can have a regular diet. 12. Elevated troponin: She denied chest pain at this point. I will trends these for the time being. If the trend up we may need to consider cardiology input and a echo to look for wall motion abnormalities. Her EKG appears to be at baseline. TIME SPENT: Time spent on the admission was 60 minutes; greater than half the time was spent [id number] with the patient obtaining my history and physical, other half of the time spent going over the plan of care with the patient and implementing plan of care. I did discuss the plan of care with my attending, Dr. William; he is in agreement. EDGARDO CASTRO NP CC: Murtaza Reyez MD* [id number]/[facility] #: [id number] [facility]ITALTanya
[2016-12-01] MEDS: KCL 10 MEQ/50 ML IVPREMIX* 10 MEQ/50 ML BAG IV SCH ×3 (00:22→03:50)
[2016-12-01] MEDS: Acetaminophen TAB* 325 MG PO PRN ×3 (03:54→23:48)
[2016-12-01] MEDS: Levothyroxine TAB* 112 MCG TAB PO SCH (05:54)
[2016-12-01 05:58] LABS: Hematocrit 31 % (35-47); Hemoglobin 10.1 g/dl (12.0-16.0); Mean Corpuscular HGB Conc 33 g/dl (31-36); Mean Corpuscular Hemoglobin 28 pg (27-31); Mean Corpuscular Volume 85 fL (80-97); Mean Platelet Volume 10 um3 (7.4-10.4); Red Blood Count 3.65 10^6/ul (4.0-5.4); Red Cell Distribution Width 19 % (10.5-15)
[2016-12-01 05:59] LABS: Add Diff/Slide Review? Slide Review Added; Comments Flag Yes
[2016-12-01 06:19] LABS: BUN/Creatinine Ratio 24.2 (8-20); Calcium 9.2 mg/dL (8.6-10.3); EGFR African American 117.7 (>60); EGFR Non-African American 91.5 (>60); Potassium 4.3 mmol/L (3.5-5.0)
--- NOTE | 2016-12-01 08:04 | PN ---
Subjective - Subjective Reason for Note: Progress Note History: I learned the history from the patient and also that provided by Edgardo Castro NP in his admitting history and physical. She recently had some digestive issues which included vomiting - her daughter had also had this. She states she fell after she was standing up from her dresser chair and lost her balance. She hit her left shoulder and was on the floor overnight as she couldn't get up due to weakness/pain. She denies any loss of consciousness/fainting. She denies chest pain, dyspnea, palpitations, edema, paroxysmal nocturnal dyspnea or orthopnea. She is oriented person, place, but not time - she knows me by name. She is able to give an account of herself. Today, she has some abdominal discomfort, left shoulder pain. She is feeling weak and cannot raise her legs from the bed. She has some anorexia, but no nausea/vomiting. Active Problems: Active Problems Congestive heart failure of unknown etiology (Acute) I50.9 Elevated troponin I measurement (Acute) R74.8 Fall (Acute) Gait difficulty (Acute) R26.9 Nausea and vomiting (Acute) R11.2 Weakness of both legs (Acute) R29.898 Anticoagulation goal of INR 2 to 3 (Chronic) Z51.81, Z79.01 Atrial fibrillation (Chronic) I48.91 Cardiac pacemaker (Chronic) Z95.0 Diverticulosis (Chronic) K57.90 Essential (primary) hypertension (Chronic) I10 Hyperlipidemia (Chronic) E78.5 Polymyalgia rheumatica (Chronic) M35.3 Primary hypothyroidism (Chronic) E03.9 Prolonged Q-T interval on ECG (Chronic 12/16/14) R94.31 Rectal prolapse (Chronic) K62.3 Type 2 diabetes mellitus (Chronic) Uterine prolapse (Chronic) N81.4 Current Medications: Current Medications Acetaminophen (Tylenol Tab*) 650 mg PO Q4H PRN PRN Reason: FEVER/PAIN Last Admin: 12/01/16 03:54 Dose: 650 mg Atorvastatin Calcium (Lipitor*) 10 mg PO BEDTIME DENISE Last Admin: 11/30/16 20:36 Dose: 10 mg Diltiazem HCl (Cardizem Cd Cap*) 180 mg PO DAILY DENISE Docusate Sodium (Colace Cap*) 100 mg PO BID DENISE Last Admin: 11/30/16 20:41 Dose: 100 mg Ferrous Sulfate (Ferrous Sulfate Tab*) 325 mg PO DAILY [facility] Furosemide (Lasix Tab*) 20 mg PO 1200 [facility] Levothyroxine Sodium (Synthroid Tab*) 112 mcg PO 0600 [facility] Last Admin: 12/01/16 05:54 Dose: 112 mcg Metoprolol Tartrate (Lopressor Tab*) 50 mg PO BID [facility] Last Admin: 11/30/16 20:36 Dose: 50 mg Multivitamins/Minerals (Theragran/Minerals Tab*) 1 tab PO DAILY [facility] Ondansetron HCl (Zofran Inj*) 4 mg IV Q6H PRN PRN Reason: NAUSEA Pharmacy Profile Note (Coumadin Daily Reminder*) 1 note FOLLOW UP 1700 DENISE Warfarin Sodium (Coumadin Tab(*)) 5 mg PO Gil@1700 DENISE PRN Reason: Protocol Warfarin Sodium (Coumadin Tab(*)) 2.5 mg PO MoTuWeThFrSa@1700 DENISE PRN Reason: Protocol Last Admin: 11/30/16 20:36 Dose: 2.5 mg Home Medications: Home Medications Medication Instructions Recorded Confirmed Type Furosemide TAB* [Lasix TAB*] 20 mg PO 1200 04/07/13 11/30/16 History Levothyroxine TAB* [Synthroid TAB*] 112 mcg PO QAM 04/07/13 11/30/16 History Metoprolol Tartrate TAB* 50 mg PO BID 09/10/15 11/30/16 History [Lopressor TAB*] Calcium Carbonate-Cholecalcife 1 tab PO DAILY 11/30/16 11/30/16 History [Calcium 600+D3 600-400 mg-Unit] Cholecalciferol TAB* [Vitamin D 1,000 unit PO DAILY 11/30/16 11/30/16 History TAB*] Diltiazem HCl Extended Release 180 mg PO DAILY 11/30/16 11/30/16 History [Diltiazem HCl ER] Docusate CAP* [Colace Cap*] 100 mg PO BID 11/30/16 11/30/16 History Ferrous Sulfate TAB* 325 mg PO DAILY 11/30/16 11/30/16 History Multivitamins/Minerals TAB* 1 tab PO DAILY 11/30/16 11/30/16 History [Theragran/minerals TAB*] Melrose-3 Fatty Acids (Nf) [Fish Oil 1,000 mg PO DAILY 11/30/16 11/30/16 History (NF)] Simvastatin TAB(NF) [Zocor(NF)] 20 mg PO BEDTIME 11/30/16 11/30/16 History Warfarin TAB(*) [Coumadin TAB(*)] 2.5 mg PO MOTUWETHFRSA 11/30/16 11/30/16 History Warfarin TAB(*) [Coumadin TAB(*)] 5 mg PO GIL 11/30/16 11/30/16 History Allergies: Allergies Allergy/AdvReac Type Severity Reaction Status Date / Time No Known Allergies Allergy Verified 12/15/14 20:35 Objective - Vital Signs Vital Signs: Vital Signs 11/30/16 11/30/16 11/30/16 18:21 18:31 20:00 Temperature 99.3 F 100.5 F Pulse Rate 99 96 Respiratory 20 26 18 Rate Blood Pressure 180/92 162/72 (mmHg) O2 Sat by Pulse 98 94 Oximetry 12/01/16 12/01/16 12/01/16 00:08 03:45 04:03 Temperature 97.9 F 99.3 F Pulse Rate 75 87 Respiratory 16 16 Rate Blood Pressure 125/56 110/78 (mmHg) O2 Sat by Pulse 97 98 Oximetry 12/01/16 07:28 Temperature 98.2 F Pulse Rate 81 Respiratory 26 Rate Blood Pressure 147/73 (mmHg) O2 Sat by Pulse 98 Oximetry - Intake and Output Intake and Output: Intake & Output 11/28/16 11/29/16 11/30/16 12/01/16 11:59 11:59 11:59 11:59 Intake Total 838 Balance 838 Weight 157 lb Intake: IV Fluids 558 NS (0.9%) 558 IVPB 160 NS (0.9%) 160 Oral 120 Other: Estimated Void Medium # Bowel Movements 0 # Voids 1 Intake and Output Start: 11/30/16 18: 21 Freq: DAILY@0600,1400,2200 Status: Active Document 11/30/16 21:50 [id number] (Rec: 11/30/16 21:50 [id number]) Document 12/01/16 05:21 [id number] (Rec: 12/01/16 05:23 [id number]) - Physical Exam General: No Cyanosis, No Anemia, No Jaundice, No Clubbing Eye Exam: bilateral: EOMI Skin: Normal: Rash Head: Yes Normocephalic Lungs and Chest: Yes: Chest Expansion Full, Chest Expansion Symetrica, Percussion Note Resonant, Vessicular Breath Sounds, Other - anterior chest - couldn't sit herself up. No: Crackles, Wheezes, Respiratory Distress, Use of Accessory Muscles Heart Rate and Rhythm: Irregular Additional Cardiovascular: Yes: Normal Heart Sounds, Heart Murmur - systolic murmur LSE and apex 2/6. No: Pedal Edema Abdominal Exam: Yes: Soft, Abdominal Tenderness - right abdomen. No: Distention , Abdominal Mass, Hepatomegaly, Guarding, Rebound Tenderness, Bowel Sounds Present - diminished - Extremities Cranial Nerves II-XII Intact: Yes Limbs: Normal Tone, Normal Coordination - finger/nose, Abnormal Power - Cannot lift either leg from bed - Neuro Orientation: Other - place/person - not time 1916, Spring ? month ?day Speech: Normal Results - Results Lab Results: Laboratory Results - last 24 hr 11/30/16 11/30/16 11/30/16 18:32 18:49 20:56 WBC 21.1 H RBC 4.11 Hgb 11.3 L Hct 35 MCV 86 MCH 28 MCHC 32 RDW 19 H Plt Count 210 MPV 10 Neut % (Auto) 86.5 H Lymph % (Auto) 6.0 L Emmet % (Auto) 7.1 Eos % (Auto) 0 Baso % (Auto) 0.4 Absolute Neuts (auto) 18.3 H Absolute Lymphs (auto) 1.3 Absolute Monos (auto) 1.5 H Absolute Eos (auto) 0 Absolute Basos (auto) 0.1 Absolute Nucleated RBC 0 Nucleated RBC % 0 INR (Anticoag Therapy) Sodium Potassium Chloride Carbon Dioxide Anion Gap BUN Creatinine Est GFR ( Amer) Est GFR (Non-Af Amer) BUN/Creatinine Ratio Glucose Calcium Total Creatine Kinase Troponin I Urine Color Yellow Urine Appearance Clear Urine pH 6.0 Ur Specific Lamont 1.017 Urine Protein 1+(30 mg/dl) H Urine Ketones Trace H Urine Blood Negative Urine Nitrate Negative Urine Bilirubin Negative Urine Urobilinogen Negative Ur Leukocyte Esterase Negative Urine WBC (Auto) Trace(0-5/hpf) Urine RBC (Auto) Absent Ur Squamous Epith Cells Present H Urine Bacteria Absent Urine Glucose 1+(50 mg/dl) H Influenza A (Rapid) Negative Influenza B (Rapid) Negative 11/30/16 11/30/16 12/01/16 20:56 20:56 00:29 WBC RBC Hgb Hct MCV MCH MCHC RDW Plt Count MPV Neut % (Auto) Lymph % (Auto) Emmet % (Auto) Eos % (Auto) Baso % (Auto) Absolute Neuts (auto) Absolute Lymphs (auto) Absolute Monos (auto) Absolute Eos (auto) Absolute Basos (auto) Absolute Nucleated RBC Nucleated RBC % INR (Anticoag Therapy) 1.85 H Sodium 136 Potassium 3.1 L Chloride 101 Carbon Dioxide 26 Anion Gap 9 BUN 13 Creatinine 0.61 Est GFR ( Amer) 119.9 Est GFR (Non-Af Amer) 93.2 BUN/Creatinine Ratio 21.3 H Glucose 140 H Calcium 9.6 Total Creatine Kinase Troponin I 0.09 H* 0.10 H* Urine Color Urine Appearance Urine pH Ur Specific Lamont Urine Protein Urine Ketones Urine Blood Urine Nitrate Urine Bilirubin Urine Urobilinogen Ur Leukocyte Esterase Urine WBC (Auto) Urine RBC (Auto) Ur Squamous Epith Cells Urine Bacteria Urine Glucose Influenza A (Rapid) Influenza B (Rapid) 12/01/16 12/01/16 05:28 05:28 WBC 19.0 H RBC 3.65 L Hgb 10.1 L Hct 31 L MCV 85 MCH 28 MCHC 33 RDW 19 H Plt Count 204 MPV 10 Neut % (Auto) 84.1 H Lymph % (Auto) 7.2 L Emmet % (Auto) 8.4 Eos % (Auto) 0.1 Baso % (Auto) 0.2 Absolute Neuts (auto) 15.9 H Absolute Lymphs (auto) 1.4 Absolute Monos (auto) 1.6 H Absolute Eos (auto) 0 Absolute Basos (auto) 0 Absolute Nucleated RBC 0 Nucleated RBC % 0 INR (Anticoag Therapy) Sodium 135 Potassium 4.3 Chloride 104 Carbon Dioxide 25 Anion Gap 6 BUN 15 Creatinine 0.62 Est GFR ( Amer) 117.7 Est GFR (Non-Af Amer) 91.5 BUN/Creatinine Ratio 24.2 H Glucose 122 H Calcium 9.2 Total Creatine Kinase 168 Troponin I Urine Color Urine Appearance Urine pH Ur Specific Lamont Urine Protein Urine Ketones Urine Blood Urine Nitrate Urine Bilirubin Urine Urobilinogen Ur Leukocyte Esterase Urine WBC (Auto) Urine RBC (Auto) Ur Squamous Epith Cells Urine Bacteria Urine Glucose Influenza A (Rapid) Influenza B (Rapid) Assessment - Problem List Assessment: Patient Problems Congestive heart failure of unknown etiology (Acute) Elevated troponin I measurement (Acute) Fall (Acute) Gait difficulty (Acute) Nausea and vomiting (Acute) Weakness of both legs (Acute) Anticoagulation goal of INR 2 to 3 (Chronic) Atrial fibrillation (Chronic) Cardiac pacemaker (Chronic) Diverticulosis (Chronic) Essential (primary) hypertension (Chronic) Hyperlipidemia (Chronic) Polymyalgia rheumatica (Chronic) Primary hypothyroidism (Chronic) Prolonged Q-T interval on ECG (Chronic 12/16/14) Rectal prolapse (Chronic) Type 2 diabetes mellitus (Chronic) Uterine prolapse (Chronic) SIRS (systemic inflammatory response syndrome) (Acute 12/16/14) Plan: Fall (Acute) Gait difficulty (Acute) Nausea and vomiting (Acute) She had a recent history suggestive of gastroenteritis. She fell after standing up from a chair and was too weak to get herself up. She has evidence of an increased WBC and also CRP. She also has increased BNP and troponin I measurements. I note on 11/15/2016 she had another fall and tripped and feel - hitting her face and sustaining lacerations - she was seen in the ED. Congestive heart failure of unknown etiology (Acute) Elevated troponin I measurement (Acute) SIRS (systemic inflammatory response syndrome) (Acute 12/16/14) Anticoagulation goal of INR 2 to 3 (Chronic) Atrial fibrillation (Chronic) Cardiac pacemaker (Chronic) Diverticulosis (Chronic) Essential (primary) hypertension (Chronic) Hyperlipidemia (Chronic) Polymyalgia rheumatica (Chronic) Primary hypothyroidism (Chronic) Prolonged Q-T interval on ECG (Chronic 12/16/14) Rectal prolapse (Chronic) Type 2 diabetes mellitus (Chronic) Uterine prolapse (Chronic)
[2016-12-01] MEDS: Multivitamins/Minerals TAB PO SCH (09:19)
[2016-12-01] MEDS: Diltiazem CD CAP* 180 MG PO SCH (09:19)
[2016-12-01] MEDS: Metoprolol Tartrate TAB* 50 mg PO SCH ×2 (09:19→20:05)
[2016-12-01] MEDS: Ferrous Sulfate TAB* 325 MG PO SCH (09:19)
[2016-12-01] MEDS: Docusate CAP* 100 MG PO SCH ×3 (09:19→20:04)
[2016-12-01] MEDS: Furosemide TAB* 20 MG PO SCH (11:45)
[2016-12-01] MEDS: Polyethylene Glycol 3350* 17 GM PACKET PO SCH (15:58)
[2016-12-01] MEDS: Warfarin TAB(*) 2.5 MG PO SCH (17:10)
[2016-12-01 17:32] LABS: Hematocrit 30 % (35-47); Hemoglobin 9.7 g/dl (12.0-16.0)
[2016-12-01] MEDS: Atorvastatin* 10 MG TAB PO SCH (20:03)
--- NOTE | 2016-12-02 04:53 | CONS ---
CONSULTATION REPORT: DATE OF CONSULT: 12/01/16 REASON FOR CONSULTATION: Falling and borderline troponins in the setting of chronic atrial fibrillation and pacemaker. CHIEF COMPLAINT: The patient's acute chief complaint is falling and back pain. HISTORY OF PRESENT ILLNESS: Ms. Lopez is an 86-year-old woman who I have followed for many years for chronic atrial fibrillation and for her pacemaker. The patient tells me that 2 weeks ago, she was going to the food mixer [employer] and tripped on the curb and fell hitting her face. She does not think she sought medical attention at that time and then did well until last night. She said she was in the bathroom, went to sit in the chair, was putting some [place] on her face, then stood up from the chair to go to bed. She was walking back to the bedroom and fell. She does not think she lost consciousness. She was unable to get up and she had pain in her back and right side. Per the hospitalist notes, she estimated she was on the floor for up to 12 hours. Her son came by her house and found her on the floor. The patient denied to me that following the initial fall 2 weeks ago, she had headaches or any other problems, but the hospitalist notes state that she has been nauseated and vomiting and had vomiting episodes. The patient denies chest pain, pressure, heaviness, orthopnea, PND and she denied any hematuria, dysuria, change in bowel or bladder habits. Right now, her back is bothering her. PAST MEDICAL HISTORY: The patient has a past medical history of chronic atrial fibrillation, hypertension, dyslipidemia, obesity, hypothyroid disease, degenerative arthritis and type 2 diabetes. She has a past medical history of polymyalgia rheumatica and uses a pessary for vaginal problems. PAST SURGICAL HISTORY: Includes pacemaker implantation, cataract extraction, section and temporal artery biopsy. Her first pacemaker was in 2005, was a Medtronic Impulse. Pacemaker generator change, 09/11/15 (Medtronic Sensia ). CURRENT INPATIENT MEDICATIONS: Include: 1. Tylenol. 2. Lipitor 10 mg a day. 3. Cardizem 180 mg a day. 4. Colace 100 mg b.i.d. 5. Iron sulfate 325 mg a day. 6. Lasix 20 mg a day. 7. Synthroid 112 mcg a day. 8. Lopressor 50 mg b.i.d. 9. Multivitamins. 10. Zofran p.r.n. 11. Coumadin. ALLERGIES: No known drug allergies. FAMILY HISTORY: Both parents had pacemakers. No atherosclerotic disease identified. SOCIAL HISTORY: The patient loves to cook. Nonsmoker and nondrinker. No history of recreational drug use. REVIEW OF SYSTEMS: See history of present illness. All other review of systems unremarkable. PHYSICAL EXAM: The patient is 5 feet 6, weight is 157 pounds, BMI of 25. Currently, blood pressure 138/47, pulse is 60 and regular, oxygen saturation 98 % on room air and temperature 98.2, afebrile since admission. General Appearance: Elderly woman lying in bed, listing a bit to the left, sleepy, but arousable, appropriate, recognizes me. Psychologically, pleasant and cooperative, little more vague than when she was in the office. Neurologically , awake, alert and oriented to person and place. I did not evaluate for time. Speech is articulate. Comprehension is good. Memory seems a little poor, just not her usual sharp self. She is slow to follow commands, but is also worried about precipitating back pain. HEENT: Pupils are equal and round. Mucous membranes moderately moist. Neck without increased JVP. Good carotid pulses without audible bruits. Breath sounds were clear with good effort. No wheezes , rales or rhonchi. Chest and coronary: The pacemaker site and left subclavian spots are well healed and unremarkable. Coronary: S1, S2 regular. A 2-3/6 light peaking systolic murmur heard in the right upper sternal border with radiation. Abdomen: Flat. Active bowel sounds. Soft, nontender. No hepatosplenomegaly or masses. Lower extremities were free of edema and warmth. She had difficulty raising the right lower extremity, but no evidence of trouble with flexion of the hand, flexion or extension of the elbow or left lower extremity problems. DIAGNOSTIC STUDIES/LAB DATA: White count on admission 22.2, hematocrit 35, platelets 221. Sedimentation rate 91. Hematocrit today is 30. INR of 1.85. D - dimer greater than 1050. Sodium on admission 136, potassium 3.1, chloride 101 , bicarb 26, glucose 140, BUN 13, creatinine 0.61, and troponin 0.09. Today's labs show sodium 135, potassium 4.3, BUN 15, creatinine 0.62, glucose 122. Troponin #2 of 0.10. On admission, TSH 0.43, CPK 367, C-reactive protein 157. CT of the brain done 11/30/16 showed no intracranial mass or hemorrhage. She had some interstitial white matter changes. Cervical spine CT had multilevel degenerative spondylolisthesis and osteoarthritis. No traumatic spinal injury. Chest x-ray: Cardiomegaly with mild interstitial edema and vascular congestion and pacemakers noted. Hip and pelvis x-rays were negative for hip fracture. A 12-lead ECG show atrial fibrillation with intermittent ventricular pacing. She has inverted T-waves in the lateral leads. Overall rate is 84 beats a minute. Pacemaker interrogation today confirmed she has a Medtronic device programmed with single chamber mode. Rate response mode turned on with a low rate of 60 beats a minute. She ventricularly paces 65% at the time. R-waves are sensed at 8 to 11 millivolts. Ventricular lead impedance 851 ohms with a ventricular pacing threshold of 0.5 volts at 0.4 milliseconds with no episode of underlying ventricular tachycardia, i.e., pacemaker is functioning well. No evidence of dysrhythmia to account for falling. Femur, knee, and shoulder x-rays were reviewed with no evidence of acute fractures but evidence of degenerative joint disease. Echocardiogram was read by me today, but is not in the computer system at this point in time. Echo from 12/18/14 shows mild left ventricular hypertrophy, ejection fraction 55% to 60%. Normal right ventricular function. Biatrial enlargement. Moderate aortic valve stenosis with a mean gradient of 13 mmHg and aortic valve area of 1.1 cm sq. She had [id number] mitral and mild-to - moderate tricuspid insufficiency. IMPRESSION: In summary, Arlene Lopez is an 86-year-old woman who presented with 2 falls in the last 2 weeks and it is unclear if they are associated with loss of consciousness, but she does not appreciate this. She has chronic atrial fibrillation and a pacemaker for symptomatic bradycardia, but no evidence of pacemaker malfunction and no evidence of underlying ventricular tachycardia. Additionally, the patient has evidence of infection versus inflammation with elevated white count and inflammatory markers of C-reactive protein and sedimentation rate. Her troponins are borderline elevated and she has atherosclerotic risks. There is no evidence of endocarditis on her transthoracic echo. With respect to the original fall, it sounds like a trip. It is possible with aortic valve stenosis that she is having orthostatic problems related to inadequate cardiac output for activity. We could pull back on her diuretics and cut back on the rate lowering agents if needed as well. With the following history and anticoagulation, fortunately there is no evidence for [employer] bleed, but if we have to stabilize the falls, we may need to rethink the safety for staying on the anticoagulation chronically. In terms of the elevated white count and inflammatory profiles, she had been seen by Dr. Tapia in 2015 for fever and hip pain, and there was concern at that time about possible occult endocarditis. I agree with the blood cultures sent and await reports. Preliminary reports with no growth. Urine culture with no growth. Serology was negative for influenza A and B. It would be appropriate to get a transesophageal echo as this is more accurate for endocarditis. (ESR on 04/01/15 was 88, 04/17/14 was 40, 05/06/15, and on 09/04/15 of 18). That would seem a long hiatus of 2 years between infectious events if she has truly had endocarditis. We will tentatively set her up for a transesophageal echo in the morning to look for the possibility of endocarditis of her valves and/or pacemaker apparatus. It will additionally give us additional information about her valvular function as well. Thank you for allowing me to assist in this nice woman's care. CC: Murtaza Reyez MD; Hospitalist service* [id number]/[facility] #: [id number] MTDD
[2016-12-02] MEDS: Levothyroxine TAB* 112 MCG TAB PO SCH (05:07)
[2016-12-02 06:13] LABS: Hematocrit 30 % (35-47); Hemoglobin 9.8 g/dl (12.0-16.0); Mean Corpuscular HGB Conc 33 g/dl (31-36); Mean Corpuscular Hemoglobin 28 pg (27-31); Mean Corpuscular Volume 85 fL (80-97); Mean Platelet Volume 11 um3 (7.4-10.4); Red Blood Count 3.53 10^6/ul (4.0-5.4); Red Cell Distribution Width 19 % (10.5-15); White Blood Count 15.2 10^3/ul (3.5-10.8)
[2016-12-02 06:32] LABS: Albumin 2.8 g/dL (3.2-5.2); BUN/Creatinine Ratio 26.6 (8-20); C Reactive Protein 168.39 mg/L (< 5.00); Calcium 8.9 mg/dL (8.6-10.3); Direct Bilirubin 0.2 mg/dL (0.03-0.18); EGFR African American 113.4 (>60); EGFR Non-African American 88.2 (>60); Globulin 3.2 g/dL (2-4); Indirect Bilirubin 0.5 mg/dL (0.3-1.0); Potassium 3.8 mmol/L (3.5-5.0); Total Bilirubin 0.7 mg/dL (0.2-1.0)
--- NOTE | 2016-12-02 10:12 | PN ---
Subjective - Subjective Reason for Note: Progress Note History: She continues to have left shoulder pain as a result of her fall. She no longer has nausea or vomiting, and she has had no diarrhea. She transferred to a chair using a walker. She has no other pain at present. I reviewed Dr. Wallace's consultation note. Active Problems: Active Problems Aortic stenosis (Acute) I35.0 Congestive heart failure of unknown etiology (Acute) I50.9 Elevated troponin I measurement (Acute) R74.8 Fall (Acute) Gait difficulty (Acute) R26.9 Mitral regurgitation (Acute) Nausea and vomiting (Acute) R11.2 Weakness of both legs (Acute) R29.898 Anticoagulation goal of INR 2 to 3 (Chronic) Z51.81, Z79.01 Atrial fibrillation (Chronic) I48.91 Cardiac pacemaker (Chronic) Z95.0 Diverticulosis (Chronic) K57.90 Essential (primary) hypertension (Chronic) I10 Hyperlipidemia (Chronic) E78.5 Polymyalgia rheumatica (Chronic) M35.3 Primary hypothyroidism (Chronic) E03.9 Prolonged Q-T interval on ECG (Chronic 12/16/14) R94.31 Rectal prolapse (Chronic) K62.3 Type 2 diabetes mellitus (Chronic) Uterine prolapse (Chronic) N81.4 Current Medications: Current Medications Acetaminophen (Tylenol Tab*) 650 mg PO Q4H PRN PRN Reason: FEVER/PAIN Last Admin: 12/01/16 23:48 Dose: 650 mg Atorvastatin Calcium (Lipitor*) 10 mg PO BEDTIME [facility] Last Admin: 12/01/16 20:03 Dose: 10 mg Diltiazem HCl (Cardizem Cd Cap*) 180 mg PO DAILY [facility] Last Admin: 12/01/16 09:19 Dose: 180 mg Docusate Sodium (Colace Cap*) 100 mg PO BID [facility] Last Admin: 12/01/16 20:04 Dose: 100 mg Ferrous Sulfate (Ferrous Sulfate Tab*) 325 mg PO DAILY [facility] Last Admin: 12/01/16 09:19 Dose: 325 mg Furosemide (Lasix Tab*) 20 mg PO 1200 [facility] Last Admin: 12/01/16 11:45 Dose: 20 mg Levothyroxine Sodium (Synthroid Tab*) 112 mcg PO 0600 [facility] Last Admin: 12/02/16 05:07 Dose: 112 mcg Metoprolol Tartrate (Lopressor Tab*) 50 mg PO BID [facility] Last Admin: 12/01/16 20:05 Dose: 50 mg Multivitamins/Minerals (Theragran/Minerals Tab*) 1 tab PO DAILY [facility] Last Admin: 12/01/16 09:19 Dose: 1 tab Ondansetron HCl (Zofran Inj*) 4 mg IV Q6H PRN PRN Reason: NAUSEA Pharmacy Profile Note (Coumadin Daily Reminder*) 1 note FOLLOW UP 1700 [facility] Last Admin: 12/01/16 17:27 Dose: 1 note Polyethylene Glycol/Electrolytes (Miralax*) 17 gm PO DAILY [facility] Last Admin: 12/01/16 15:58 Dose: 17 gm Warfarin Sodium (Coumadin Tab(*)) 5 mg PO Gil@1700 [facility] PRN Reason: Protocol Warfarin Sodium (Coumadin Tab(*)) 2.5 mg PO MoTuWeThFrSa@1700 [facility] PRN Reason: Protocol Last Admin: 12/01/16 17:10 Dose: 2.5 mg - Review of Systems Constitutional Symptoms: No: Fever Dermatology: Rash: No Pulmonary: Negative: Cough, Sputum, Wheezing Cardiology: Negative: Chest Pain, Shortness of Breath Home Medications: Home Medications Medication Instructions Recorded Confirmed Type Furosemide TAB* [Lasix TAB*] 20 mg PO 1200 04/07/13 11/30/16 History Levothyroxine TAB* [Synthroid TAB*] 112 mcg PO QAM 04/07/13 11/30/16 History Metoprolol Tartrate TAB* 50 mg PO BID 09/10/15 11/30/16 History [Lopressor TAB*] Calcium Carbonate-Cholecalcife 1 tab PO DAILY 11/30/16 11/30/16 History [Calcium 600+D3 600-400 mg-Unit] Cholecalciferol TAB* [Vitamin D 1,000 unit PO DAILY 11/30/16 11/30/16 History TAB*] Diltiazem HCl Extended Release 180 mg PO DAILY 11/30/16 11/30/16 History [Diltiazem HCl ER] Docusate CAP* [Colace Cap*] 100 mg PO BID 11/30/16 11/30/16 History Ferrous Sulfate TAB* 325 mg PO DAILY 11/30/16 11/30/16 History Multivitamins/Minerals TAB* 1 tab PO DAILY 11/30/16 11/30/16 History [Theragran/minerals TAB*] [place]-3 Fatty Acids (Nf) [Fish Oil 1,000 mg PO DAILY 11/30/16 11/30/16 History (NF)] Simvastatin TAB(NF) [Zocor(NF)] 20 mg PO BEDTIME 11/30/16 11/30/16 History Warfarin TAB(*) [Coumadin TAB(*)] 2.5 mg PO [id number] 11/30/16 11/30/16 History Warfarin TAB(*) [Coumadin TAB(*)] 5 mg PO GIL 11/30/16 11/30/16 History Allergies: Allergies Allergy/AdvReac Type Severity Reaction Status Date / Time No Known Allergies Allergy Verified 12/15/14 20:35 Objective - Vital Signs Vital Signs: Vital Signs 12/01/16 12/01/16 12/01/16 10:31 11:37 15:34 Temperature 98.3 F 97.9 F Pulse Rate 68 68 Respiratory 24 17 Rate Blood Pressure 134/61 141/54 (mmHg) O2 Sat by Pulse 97 98 99 Oximetry 12/01/16 12/01/16 12/01/16 16:49 19:45 20:13 Temperature 98.6 F 98.2 F Pulse Rate 65 63 Respiratory 18 18 Rate Blood Pressure 140/53 138/47 (mmHg) O2 Sat by Pulse 97 98 98 Oximetry 12/02/16 12/02/16 12/02/16 00:06 04:03 07:28 Temperature 98.7 F 98.5 F 98.3 F Pulse Rate 69 71 Respiratory 16 16 Rate Blood Pressure 148/49 150/58 (mmHg) O2 Sat by Pulse 97 97 Oximetry 12/02/16 12/02/16 07:44 07:53 Temperature Pulse Rate 60 Respiratory 22 Rate Blood Pressure 136/70 (mmHg) O2 Sat by Pulse 94 97 Oximetry - Intake and Output Intake and Output: Intake & Output 11/29/16 11/30/16 12/01/16 12/02/16 11:59 11:59 11:59 11:59 Intake Total 1439 420 Output Total 100 850 Balance 1339 -430 Weight 157 lb Intake: IV Fluids 859 NS (0.9%) 558 IVPB 160 NS (0.9%) 160 Oral 420 420 Output: Urine 100 850 Other: Estimated Void Medium # Bowel Movements 0 Estimated Stool Amount Small # Voids 1 0 ADLs: Meal Record Start: 11/30/16 18: 21 Freq: DAILY@0900,1400,1800 Status: Active Document 12/01/16 09:00 [id number] (Rec: 12/01/16 11:26 [id number] [id number]) Document 12/01/16 14:00 [id number] (Rec: 12/01/16 14:25 [id number] TELE-C01) Document 12/01/16 18:00 [id number] (Rec: 12/01/16 22:12 [id number] TELE-C06) Document 12/02/16 09:04 [id number] (Rec: 12/02/16 09:04 [id number] TELE-C01) Intake and Output Start: 11/30/16 18: 21 Freq: DAILY@0600,1400,2200 Status: Active Document 11/30/16 21:50 [id number] (Rec: 11/30/16 21:50 [id number] TELE-C13) Document 12/01/16 05:21 [id number] (Rec: 12/01/16 05:23 [id number] TELE-C01) Document 12/01/16 14:00 [id number] (Rec: 12/01/16 14:25 [id number] TELE-C01) Document 12/01/16 22:00 [id number] (Rec: 12/01/16 22:25 [id number] TELE-C06) Document 12/02/16 06:00 [id number] (Rec: 12/02/16 06:07 [id number] TELE-C32) - Physical Exam General: No Cyanosis, Yes Anemia, No Jaundice, No Clubbing Lungs and Chest: Yes: Chest Expansion Full, Chest Expansion Symetrica, Percussion Note Resonant. No: Crackles, Wheezes Heart Rate and Rhythm: Regular JVP: Not Elevated Additional Cardiovascular: Yes: Normal Heart Sounds, Heart Murmur - LSE/apex DENNYS. No: Carotid Bruits, Pedal Edema Abdominal Exam: Yes: Soft, Bowel Sounds Present. No: Distention, Abdominal Mass , Hepatomegaly, Abdominal Tenderness Results - Results Lab Results: Laboratory Results - last 24 hr 12/01/16 12/01/16 12/01/16 05:28 09:40 09:40 WBC RBC Hgb Hct MCV MCH MCHC RDW Plt Count MPV Neut % (Auto) Lymph % (Auto) [place] % (Auto) Eos % (Auto) Baso % (Auto) Absolute Neuts (auto) Absolute Lymphs (auto) Absolute Monos (auto) Absolute Eos (auto) Absolute Basos (auto) Absolute Nucleated RBC Nucleated RBC % ESR 91 H D-Dimer, Quantitative > 1050 H Sodium Potassium Chloride Carbon Dioxide Anion Gap BUN Creatinine Est GFR ( Amer) Est GFR (Non-Af Amer) BUN/Creatinine Ratio Glucose POC Glucose (mg/dL) Calcium Total Bilirubin Direct Bilirubin Indirect Bilirubin AST ALT Alkaline Phosphatase C-Reactive Protein Total Protein Albumin Globulin Albumin/Globulin Ratio Procalcitonin Blood Type A Positive Antibody Screen Negative 12/01/16 12/01/16 12/01/16 09:40 11:18 17:20 WBC RBC Hgb 9.7 L Hct 30 L MCV MCH MCHC RDW Plt Count MPV Neut % (Auto) Lymph % (Auto) [place] % (Auto) Eos % (Auto) Baso % (Auto) Absolute Neuts (auto) Absolute Lymphs (auto) Absolute Monos (auto) Absolute Eos (auto) Absolute Basos (auto) Absolute Nucleated RBC Nucleated RBC % ESR D-Dimer, Quantitative Sodium Potassium Chloride Carbon Dioxide Anion Gap BUN Creatinine Est GFR ( Amer) Est GFR (Non-Af Amer) BUN/Creatinine Ratio Glucose POC Glucose (mg/dL) 159 H Calcium Total Bilirubin Direct Bilirubin Indirect Bilirubin AST ALT Alkaline Phosphatase C-Reactive Protein Total Protein Albumin Globulin Albumin/Globulin Ratio Procalcitonin 0.2 Blood Type Antibody Screen 12/01/16 12/02/16 12/02/16 18:35 03:07 05:26 WBC 15.2 H RBC 3.53 L Hgb 9.8 L Hct 30 L MCV 85 MCH 28 MCHC 33 RDW 19 H Plt Count 196 MPV 11 H Neut % (Auto) 77.1 Lymph % (Auto) 13.8 L [place] % (Auto) 8.2 Eos % (Auto) 0.7 Baso % (Auto) 0.2 Absolute Neuts (auto) 11.7 H Absolute Lymphs (auto) 2.1 Absolute Monos (auto) 1.2 H Absolute Eos (auto) 0.1 Absolute Basos (auto) 0 Absolute Nucleated RBC 0 Nucleated RBC % 0 ESR D-Dimer, Quantitative Sodium Potassium Chloride Carbon Dioxide Anion Gap BUN Creatinine Est GFR ( Amer) Est GFR (Non-Af Amer) BUN/Creatinine Ratio Glucose POC Glucose (mg/dL) 185 H 137 H Calcium Total Bilirubin Direct Bilirubin Indirect Bilirubin AST ALT Alkaline Phosphatase C-Reactive Protein Total Protein Albumin Globulin Albumin/Globulin Ratio Procalcitonin Blood Type Antibody Screen 12/02/16 05:26 WBC RBC Hgb Hct MCV MCH MCHC RDW Plt Count MPV Neut % (Auto) Lymph % (Auto) [place] % (Auto) Eos % (Auto) Baso % (Auto) Absolute Neuts (auto) Absolute Lymphs (auto) Absolute Monos (auto) Absolute Eos (auto) Absolute Basos (auto) Absolute Nucleated RBC Nucleated RBC % ESR D-Dimer, Quantitative Sodium 134 Potassium 3.8 Chloride 102 Carbon Dioxide 27 Anion Gap 5 BUN 17 Creatinine 0.64 Est GFR ( Amer) 113.4 Est GFR (Non-Af Amer) 88.2 BUN/Creatinine Ratio 26.6 H Glucose 101 H POC Glucose (mg/dL) Calcium 8.9 Total Bilirubin 0.70 Direct Bilirubin 0.20 H Indirect Bilirubin 0.5 AST 37 ALT 41 Alkaline Phosphatase 130 H C-Reactive Protein 168.39 H Total Protein 6.0 L Albumin 2.8 L Globulin 3.2 Albumin/Globulin Ratio 0.9 L Procalcitonin Blood Type Antibody Screen Assessment - Problem List Assessment: Patient Problems Aortic stenosis (Acute) Congestive heart failure of unknown etiology (Acute) Elevated troponin I measurement (Acute) Fall (Acute) Gait difficulty (Acute) Mitral regurgitation (Acute) Nausea and vomiting (Acute) Weakness of both legs (Acute) Anticoagulation goal of INR 2 to 3 (Chronic) Atrial fibrillation (Chronic) Cardiac pacemaker (Chronic) Diverticulosis (Chronic) Essential (primary) hypertension (Chronic) Hyperlipidemia (Chronic) Polymyalgia rheumatica (Chronic) Primary hypothyroidism (Chronic) Prolonged Q-T interval on ECG (Chronic 12/16/14) Rectal prolapse (Chronic) Type 2 diabetes mellitus (Chronic) Uterine prolapse (Chronic) SIRS (systemic inflammatory response syndrome) (Acute 12/16/14) Plan: Fall (Acute) Weakness of both legs (Acute) SIRS (systemic inflammatory response syndrome) (Acute 12/16/14) Her WBC and CRP are a little lower. She has had no fevers or chills. We are withholding antibacterials. Cultures at this stage are negative. Congestive heart failure of unknown etiology (Acute) Aortic stenosis (Acute) Mitral regurgitation (Acute) We are awaiting the transesophageal echocardiogram to rule out infective endocarditis and to establish the degree of aortic stenosis. Dr. Wallace rightly points out that her recent weakness may be secondary to severe aortic stenosis Elevated troponin I measurement (Acute) see above Gait difficulty (Acute) We will mobilize her Nausea and vomiting (Acute) none at present Anticoagulation goal of INR 2 to 3 (Chronic) I will check her INR tomorrow Atrial fibrillation (Chronic) ongoing Cardiac pacemaker (Chronic) functioning and no dysrhythmia on interrogation Diverticulosis (Chronic) We may need to obtain a CT scan abdo/pelvis to rule out acute diverticulitis Essential (primary) hypertension (Chronic) secondary diagnosis Hyperlipidemia (Chronic) secondary diagnosis Polymyalgia rheumatica (Chronic) This may potentially be the cause for her increased CRP Primary hypothyroidism (Chronic) secondary diagnosis Prolonged Q-T interval on ECG (Chronic 12/16/14) secondary diagnosis Rectal prolapse (Chronic) secondary diagnosis Type 2 diabetes mellitus (Chronic) secondary diagnosis Uterine prolapse (Chronic) secondary diagnosis left shoulder pain: she had a X-ray of her right shoulder, I will check the left. I discussed the above with the patient and she agreed with the management plan
[2016-12-02] MEDS ORDERED: fentaNYL* 50 MCG/ML 2 ML VIAL (100 MCG VIAL) ONE (10:46)
[2016-12-02] MEDS ORDERED: Naloxone* 0.4 MG/ML 1 ML VIAL ONE (10:46)
[2016-12-02] MEDS ORDERED: Midazolam* 1 MG/ML 5 ML VIAL (5 MG) ONE (10:46)
[2016-12-02] MEDS ORDERED: Lidocaine 2% VISCOUS* 15 ML UDC ONE (10:46)
[2016-12-02] MEDS ORDERED: Flumazenil* 0.1 MG/ML 5 ML MDV ONE (10:46)
--- NOTE | 2016-12-02 12:49 | TEE ---
Patient: JOE ARSHAD [facility] Rec#: [id number] : 1930 Date: 12/02/2016 Age: 86y Height: 167.64 cm / 66.0 in Weight: 71.21 kg / 156.9 lbs Sex: F BSA: 1.8 Room#: [facility] Type: Inpatient Referring: Adela Wallace MD Performing: Tony Crum MD Reading: Tony Crum MD Tug Boat Engineer: Anuradha Campbell [facility] Nurse: Lorenza Roldan RN Transesophageal Echocardiogram Indication: //murmur BP: 136/70 HR: 85 Rhythm: A-Fib Findings History: A-fib,s/p pacer,HTN,HLD,DM. Technical Comments: The study quality is good. Completed 1220. Left Ventricle: The left ventricular chamber size is normal. Mild to moderate concentric left ventricular hypertrophy is observed. Global left ventricular wall motion and contractility are within normal limits. There is normal left ventricular systolic function. The estimated ejection fraction is 55-60%. There is abnormal ventricular septal wall motion consistent with right ventricular pacemaker. The assessment of diastolic function is non-diagnostic. Left Atrium: The left atrium is severely dilated. Right Ventricle: The right ventricular global systolic function is normal. The septum has abnormal paradoxical motion consistent with RV pacemaker. A pacemaker wire is visualized in the right ventricle.No mass nor vegetation seen on portion of pacermaker wire visualized. Right Atrium: The right atrium is moderate to severely dilated. A pacemaker wire is visualized in the right atrium.No mass nor vegetation seen on portion of pacermaker wire visualized. There is no patent foramen ovale visualized. A patent foramen ovale is not demonstrated with color Doppler and agitated contrast. Aortic Valve: The aortic valve is trileaflet. The aortic valve leaflets are severely thickened with reduced systolic excursion. There is a trace of aortic regurgitation. There is moderate to severe aortic stenosis. There is no aortic vegetation present. Mitral Valve: There is mitral annular calcification. There is suspicious area of echodensity noted on the mitral valve measuring 1.9 cm x 0.6 cm; consider vegetation. There is mild to moderate mitral regurgitation. There is mild mitral stenosis. Tricuspid Valve: The tricuspid valve leaflets are normal. There is mild to moderate tricuspid regurgitation. Unable to estimate the right ventricular systolic pressure. No vegetation is observed on the tricuspid valve. Pulmonic Valve: The pulmonic valve structure is not well visualized. There is a trace pulmonic regurgitation. No vegetation is observed on the pulmonic valve. Pericardium: A trivial pericardial effusion is visualized. There are no signs of significant hemodynamic compromise. Aorta: There is moderate dilatation of the ascending aorta. There is no dilatation of the aortic arch. There is mild dilatation of the aortic root. There is plaque visualized in the descending aorta. Noted in the descending thoracic aorta. It is nonmobile. There is evidence of grade 3 (atheroma Less Than = 5mm) atheroma in the descending aorta. Pulmonary Artery: The main pulmonary artery appears normal. Venous: The bicaval view was obtained and appears normal. The pulmonary veins appear normal in size. The flow pattern of the pulmonary veins appear normal. SHEFALI Procedures: History and physical as well as labs were reviewed. The patient was in a fasting state. Risks and benefits of the procedure, including alternatives, were discussed and written informed consent was obtained. The patient and/or their health care sales representatives expressed understanding of the procedure, risks and benefits. Baseline and continuous monitoring of blood pressure, heart rate, pulse oximetry and heart rhythm was performed throughout the procedure. The appropriate time-out procedure was performed as per [facility] protocol. The patient was placed in the left lateral decubitus position. The patient's posterior pharynx was anesthetized with 20ml of 2% viscous lidocaine. The patient received IV Midazolam with a total dose of 3 mg. The patient received IV Fentanyl with a total dose [id number]. An oral bite block was inserted for protection of oral dentition. The multiplane transesophageal echocardiogram probe was inserted through the posterior oropharynx and advanced into the esophagus without difficulty. Multiple 2D images were obtained of the heart and its related structures. Color flow Doppler was used for evaluation. Spectral Doppler was also used. The atrial septum was interrogated with color flow Doppler. At the conclusion of the procedure the probe was removed with continuous suction without complications. The patient tolerated the procedure with no apparent complications. Conclusions There is normal left ventricular systolic function. The estimated ejection fraction is 55-60%. Global left ventricular wall motion and contractility are within normal limits. The left ventricular chamber size is normal. Mild to moderate concentric left ventricular hypertrophy is observed. The left atrium is severely dilated. The right atrium is moderate to severely dilated. There is moderate to severe aortic stenosis. .There is mild to moderate mitral regurgitation. There is mild mitral stenosis. There is mild to moderate tricuspid regurgitation. There is moderate dilatation of the ascending aorta. There is mild dilatation of the aortic root. There is a suspicious area of echodensity noted on the mitral valve measuring 1.9 cm x 0.6 cm; consider vegetation. See also full transthoracic echocardiogram report completed 12/01/16. These results have been discussed with the patient, with the patient's attending physician, Dr. Reyez and with the patient's surgical technology instructor, Dr. Wallace. Measurements Name Value Normal Range Aortic Annulus 1.7 cm (1.4 - 2.6) Ao root diameter (2D) 3.7 cm (2.1 - 3.5) Ascending Ao 4.6 cm (2.1 - 3.4)
--- NOTE | 2016-12-02 13:26 | RAD ---
INDICATION: Left shoulder injury. TECHNIQUE: 3 views of the left shoulder were obtained. FINDINGS: The bones are in normal alignment. No fracture is seen. There is mild osteoarthritic change in the acromioclavicular joint. There is a transvenous pacemaker present. IMPRESSION: NO EVIDENCE OF FRACTURE.
[2016-12-02] MEDS ORDERED: Vancomycin per Pharmacy* NOTE FOLLOW UP PRN (13:33)
[2016-12-02] MEDS: Multivitamins/Minerals TAB PO SCH (13:42)
[2016-12-02] MEDS: Ferrous Sulfate TAB* 325 MG PO SCH (13:42)
[2016-12-02] MEDS: Diltiazem CD CAP* 180 MG PO SCH (13:42)
[2016-12-02] MEDS: Furosemide TAB* 20 MG PO SCH (13:42)
[2016-12-02] MEDS: Metoprolol Tartrate TAB* 50 mg PO SCH ×2 (13:42→21:13)
[2016-12-02] MEDS: Polyethylene Glycol 3350* 17 GM PACKET PO SCH (13:42)
[2016-12-02] MEDS: Docusate CAP* 100 MG PO SCH ×2 (13:43→21:13)
[2016-12-02] MEDS ORDERED: Vancomycin(*) 1,250 MG in NS 0.9% 250 ML* 250 ML IVPB ONE (14:00)
[2016-12-02] MEDS: Acetaminophen TAB* 325 MG PO PRN (14:07)
[2016-12-02] MEDS ORDERED: Ondansetron INJ* 2 MG/ML VIAL IV PRN (15:46)
[2016-12-02] MEDS: cefTRIAXone VIAL(*) 1,000 MG in NS 0.9% 50 ML* 50 ML IVPB SCH (17:13)
[2016-12-02] MEDS: Warfarin TAB(*) 2.5 MG PO SCH (17:18)
[2016-12-02] MEDS: Atorvastatin* 10 MG TAB PO SCH (21:14)
[2016-12-03] MEDS: Vancomycin(*) 1,000 MG in NS 0.9% 250 ML* 250 ML IVPB SCH ×2 (02:12→14:06)
[2016-12-03] MEDS: Acetaminophen TAB* 325 MG PO PRN (05:11)
[2016-12-03] MEDS: Levothyroxine TAB* 112 MCG TAB PO SCH (05:11)
[2016-12-03 05:37] LABS: Hematocrit 31 % (35-47); Hemoglobin 10.2 g/dl (12.0-16.0); Mean Corpuscular HGB Conc 34 g/dl (31-36); Mean Corpuscular Hemoglobin 28 pg (27-31); Mean Corpuscular Volume 84 fL (80-97); Mean Platelet Volume 10 um3 (7.4-10.4); Red Blood Count 3.63 10^6/ul (4.0-5.4); Red Cell Distribution Width 18 % (10.5-15); White Blood Count 9.8 10^3/ul (3.5-10.8)
[2016-12-03 06:30] LABS: BUN/Creatinine Ratio 23.2 (8-20); C Reactive Protein 141.17 mg/L (< 5.00); Calcium 8.6 mg/dL (8.6-10.3); EGFR African American 132.3 (>60); EGFR Non-African American 102.9 (>60); Potassium 3.9 mmol/L (3.5-5.0)
--- NOTE | 2016-12-03 08:20 | PN ---
Subjective - Subjective Reason for Note: Progress Note History: She continues to be weak and have pain in her shoulders and legs. She has had no night sweats or fevers. She has no chest pain, dyspnea, palpitations. No rhythm disturbances on telemetry. She has had no chest pain, dyspnea or palpitations. Fingersticks show no evidence of out of control T2D. 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 Mitral regurgitation (Acute) Nausea and vomiting (Acute) R11.2 Weakness of both legs (Acute) R29.898 Anticoagulation goal of INR 2 to 3 (Chronic) Z51.81, Z79.01 Atrial fibrillation (Chronic) I48.91 Cardiac pacemaker (Chronic) Z95.0 Diverticulosis (Chronic) K57.90 Essential (primary) hypertension (Chronic) I10 Hyperlipidemia (Chronic) E78.5 Polymyalgia rheumatica (Chronic) M35.3 Primary hypothyroidism (Chronic) E03.9 Prolonged Q-T interval on ECG (Chronic 12/16/14) R94.31 Rectal prolapse (Chronic) K62.3 Type 2 diabetes mellitus (Chronic) Uterine prolapse (Chronic) N81.4 Current Medications: Current Medications Acetaminophen (Tylenol Tab*) 650 mg PO Q4H PRN PRN Reason: FEVER/PAIN Last Admin: 12/03/16 05:11 Dose: 650 mg Atorvastatin Calcium (Lipitor*) 10 mg PO BEDTIME [facility] Last Admin: 12/02/16 21:14 Dose: 10 mg Diltiazem HCl (Cardizem Cd Cap*) 180 mg PO DAILY [facility] Last Admin: 12/02/16 13:42 Dose: 180 mg Docusate Sodium (Colace Cap*) 100 mg PO BID [facility] Last Admin: 12/02/16 21:13 Dose: 100 mg Ferrous Sulfate (Ferrous Sulfate Tab*) 325 mg PO DAILY [facility] Last Admin: 12/02/16 13:42 Dose: 325 mg Furosemide (Lasix Tab*) 20 mg PO 1200 [facility] Last Admin: 12/02/16 13:42 Dose: 20 mg Vancomycin HCl 1,000 mg/ (Sodium Chloride) 250 mls @ 166.667 mls/hr IVPB Q12H [facility] PRN Reason: Protocol Last Admin: 12/03/16 02:12 Dose: 166.667 mls/hr Ceftriaxone Sodium 1,000 mg/ (Sodium Chloride) 50 mls @ 200 mls/hr IVPB Q24H [facility] Last Admin: 12/02/16 17:13 Dose: 200 mls/hr Levothyroxine Sodium (Synthroid Tab*) 112 mcg PO 0600 [facility] Last Admin: 12/03/16 05:11 Dose: 112 mcg Metoprolol Tartrate (Lopressor Tab*) 50 mg PO BID [facility] Last Admin: 12/02/16 21:13 Dose: 50 mg Multivitamins/Minerals (Theragran/Minerals Tab*) 1 tab PO DAILY [facility] Last Admin: 12/02/16 13:42 Dose: 1 tab Ondansetron HCl (Zofran Inj*) 10 mg IV Q8H PRN PRN Reason: NAUSEA Pharmacy Consult (Vancomycin Per Pharmacy*) 1 note FOLLOW UP . PRN PRN Reason: PER PROTOCOL Pharmacy Profile Note (Coumadin Daily Reminder*) 1 note FOLLOW UP 1700 [facility] Last Admin: 12/02/16 17:53 Dose: 1 note Pharmacy Profile Note (Vancomycin Trough Check) 1 note FOLLOW UP ONCE ONE Stop: 12/04/16 13:31 Polyethylene Glycol/Electrolytes (Miralax*) 17 gm PO DAILY [facility] Last Admin: 12/02/16 13:42 Dose: 17 gm Warfarin Sodium (Coumadin Tab(*)) 5 mg PO Gil@1700 [facility] PRN Reason: Protocol Warfarin Sodium (Coumadin Tab(*)) 2.5 mg PO MoTuWeThFrSa@1700 [facility] PRN Reason: Protocol Last Admin: 12/02/16 17:18 Dose: 2.5 mg Home Medications: Home Medications Medication Instructions Recorded Confirmed Type Furosemide TAB* [Lasix TAB*] 20 mg PO 1200 04/07/13 11/30/16 History Levothyroxine TAB* [Synthroid TAB*] 112 mcg PO QAM 04/07/13 11/30/16 History Metoprolol Tartrate TAB* 50 mg PO BID 09/10/15 11/30/16 History [Lopressor TAB*] Calcium Carbonate-Cholecalcife 1 tab PO DAILY 11/30/16 11/30/16 History [Calcium 600+D3 600-400 mg-Unit] Cholecalciferol TAB* [Vitamin D 1,000 unit PO DAILY 11/30/16 11/30/16 History TAB*] Diltiazem HCl Extended Release 180 mg PO DAILY 11/30/16 11/30/16 History [Diltiazem HCl ER] Docusate CAP* [Colace Cap*] 100 mg PO BID 11/30/16 11/30/16 History Ferrous Sulfate TAB* 325 mg PO DAILY 11/30/16 11/30/16 History Multivitamins/Minerals TAB* 1 tab PO DAILY 11/30/16 11/30/16 History [Theragran/minerals TAB*] [place]-3 Fatty Acids (Nf) [Fish Oil 1,000 mg PO DAILY 11/30/16 11/30/16 History (NF)] Simvastatin TAB(NF) [Zocor(NF)] 20 mg PO BEDTIME 11/30/16 11/30/16 History Warfarin TAB(*) [Coumadin TAB(*)] 2.5 mg PO [id number] 11/30/16 11/30/16 History Warfarin TAB(*) [Coumadin TAB(*)] 5 mg PO GIL 11/30/16 11/30/16 History Allergies: Allergies Allergy/AdvReac Type Severity Reaction Status Date / Time No Known Allergies Allergy Verified 12/15/14 20:35 Objective - Vital Signs Vital Signs: Vital Signs 12/02/16 12/02/16 12/02/16 12:25 13:45 19:58 Temperature 97.3 F 97.7 F 98.5 F Pulse Rate 82 71 65 Respiratory 20 18 18 Rate Blood Pressure 135/62 176/73 128/53 (mmHg) O2 Sat by Pulse 97 97 96 Oximetry 12/02/16 12/03/16 12/03/16 20:00 00:16 03:52 Temperature 98.0 F 98.7 F Pulse Rate 68 71 Respiratory 16 20 20 Rate Blood Pressure 143/62 151/64 (mmHg) O2 Sat by Pulse 96 94 Oximetry - Intake and Output Intake and Output: Intake & Output 11/30/16 12/01/16 12/02/16 12/03/16 11:59 11:59 11:59 11:59 Intake Total 420 805 Output Total 100 850 650 Balance -100 -430 155 Intake: IV Fluids 333 ABX - VANCOMYCIN 250 NS (0.9%) 83 IVPB 352 ABX - CEFTRIAXONE 60 Oral 420 120 Output: Urine 100 850 650 Other: # Bowel Movements 0 Estimated Stool Amount Small # Voids 0 ADLs: Meal Record Start: 11/30/16 18: 21 Freq: DAILY@0900,1400,1800 Status: Active Document 12/01/16 09:00 [id number] (Rec: 12/01/16 11:26 [id number] HOSP-C11) Document 12/01/16 14:00 [id number] (Rec: 12/01/16 14:25 [id number] TELE-C01) Document 12/01/16 18:00 [id number] (Rec: 12/01/16 22:12 [id number] TELE-C06) Document 12/02/16 09:04 [id number] (Rec: 12/02/16 09:04 [id number] TELE-C01) Document 12/02/16 13:53 [id number] (Rec: 12/02/16 13:54 [id number] TELE-C01) Document 12/02/16 16:24 [id number] (Rec: 12/02/16 16:24 [id number] TELE-C10) Document 12/02/16 18:00 [id number] (Rec: 12/02/16 22:19 [id number] TELE-C35) Intake and Output Start: 11/30/16 18: 21 Freq: DAILY@0600,1400,2200 Status: Active Document 11/30/16 21:50 [id number] (Rec: 11/30/16 21:50 [id number] TELE-C13) Document 12/01/16 05:21 [id number] (Rec: 12/01/16 05:23 [id number] TELE-C01) Document 12/01/16 14:00 [id number] (Rec: 12/01/16 14:25 [id number] TELE-C01) Document 12/01/16 22:00 [id number] (Rec: 12/01/16 22:25 [id number] TELE-C06) Document 12/02/16 06:00 [id number] (Rec: 12/02/16 06:07 [id number] TELE-C32) Document 12/02/16 13:53 [id number] (Rec: 12/02/16 13:54 [id number] TELE-C01) Document 12/02/16 22:00 [id number] (Rec: 12/02/16 22:19 [id number] TELE-C35) Document 12/03/16 06:00 [id number] (Rec: 12/03/16 06:12 [id number] TELE-C33) - Physical Exam General: No Cyanosis, No Anemia, No Jaundice, No Clubbing Lungs and Chest: Yes: Chest Expansion Full, Chest Expansion Symetrica, Percussion Note Resonant, Vessicular Breath Sounds. No: Crackles, Wheezes, Respiratory Distress, Use of Accessory Muscles Heart Rate and Rhythm: Irregular JVP: Not Elevated Additional Cardiovascular: Yes: Normal Heart Sounds, Heart Murmur - 3/6. No: Pedal Edema Abdominal Exam: Yes: Bowel Sounds Present. No: Distention, Hepatomegaly, Abdominal Tenderness Results - Results Lab Results: Laboratory Results - last 24 hr 12/02/16 12/02/16 12/03/16 12:31 20:30 04:50 WBC RBC Hgb Hct MCV MCH MCHC RDW Plt Count MPV Neut % (Auto) Lymph % (Auto) [place] % (Auto) Eos % (Auto) Baso % (Auto) Absolute Neuts (auto) Absolute Lymphs (auto) Absolute Monos (auto) Absolute Eos (auto) Absolute Basos (auto) Absolute Nucleated RBC Nucleated RBC % INR (Anticoag Therapy) Sodium Potassium Chloride Carbon Dioxide Anion Gap BUN Creatinine Est GFR ( Amer) Est GFR (Non-Af Amer) BUN/Creatinine Ratio Glucose POC Glucose (mg/dL) 103 140 H 107 H Calcium C-Reactive Protein 12/03/16 12/03/16 12/03/16 05:07 05:07 05:07 WBC 9.8 RBC 3.63 L Hgb 10.2 L Hct 31 L MCV 84 MCH 28 MCHC 34 RDW 18 H Plt Count 211 MPV 10 Neut % (Auto) 72.8 Lymph % (Auto) 16.9 L [place] % (Auto) 8.3 Eos % (Auto) 1.3 Baso % (Auto) 0.7 Absolute Neuts (auto) 7.1 Absolute Lymphs (auto) 1.7 Absolute Monos (auto) 0.8 Absolute Eos (auto) 0.1 Absolute Basos (auto) 0.1 Absolute Nucleated RBC 0 Nucleated RBC % 0 INR (Anticoag Therapy) 2.00 H Sodium 136 Potassium 3.9 Chloride 104 Carbon Dioxide 26 Anion Gap 6 BUN 13 Creatinine 0.56 Est GFR ( Amer) 132.3 Est GFR (Non-Af Amer) 102.9 BUN/Creatinine Ratio 23.2 H Glucose 91 POC Glucose (mg/dL) Calcium 8.6 C-Reactive Protein 141.17 H Radiology Results: Transesophageal echocardiogram Conclusions There is normal left ventricular systolic function. The estimated ejection fraction is 55-60%. Global left ventricular wall motion and contractility are within normal limits. The left ventricular chamber size is normal. Mild to moderate concentric left ventricular hypertrophy is observed. The left atrium is severely dilated. The right atrium is moderate to severely dilated. There is moderate to severe aortic stenosis. .There is mild to moderate mitral regurgitation. There is mild mitral stenosis. There is mild to moderate tricuspid regurgitation. There is moderate dilatation of the ascending aorta. There is mild dilatation of the aortic root. There is a suspicious area of echodensity noted on the mitral valve measuring 1.9 cm x 0.6 cm; consider vegetation. See also full transthoracic echocardiogram report completed 12/01/16. These results have been discussed with the patient, with the patient's attending physician, Dr. Reyez and with the patient's stone setter metal optical frames, Dr. Wallace. Assessment - Problem List Assessment: Patient Problems Aortic stenosis (Acute) Congestive heart failure of unknown etiology (Acute) Elevated troponin I measurement (Acute) Fall (Acute) Gait difficulty (Acute) Infective endocarditis (Acute) Mitral annular calcification (Acute) Mitral regurgitation (Acute) Nausea and vomiting (Acute) Weakness of both legs (Acute) Anticoagulation goal of INR 2 to 3 (Chronic) Atrial fibrillation (Chronic) Cardiac pacemaker (Chronic) Diverticulosis (Chronic) Essential (primary) hypertension (Chronic) Hyperlipidemia (Chronic) Polymyalgia rheumatica (Chronic) Primary hypothyroidism (Chronic) Prolonged Q-T interval on ECG (Chronic 12/16/14) Rectal prolapse (Chronic) Type 2 diabetes mellitus (Chronic) Uterine prolapse (Chronic) SIRS (systemic inflammatory response syndrome) (Acute 12/16/14) Plan: Infective endocarditis (Acute)/Mitral annular calcification/SIRS (systemic inflammatory response syndrome) (Acute 12/16/14): The transesophageal echocardiogram shows an image that is consistent either with infective endocardititis or mitral annular calcification. In favor of infective endocarditis: * High sed rate/CRP * History 2 years ago of a similar illness that was treated v. briefly with antibacterials and that resolved over time with steroids Against infective endocarditis: * Possible (not classic) vegetation - sclerosis in which vegetation can't be ruled out * x4 paired blood cultures - all negative * No classic manifestations: clubbing, splinter hemorrhages, [place] nodes * Unlikely time course (2 years) Aortic stenosis (Acute) Per Dr. Wallace This is also hemodynamically significant. We may need to consider TAVR in due course as she would not tolerate classic surgery owing to her general medical condition Congestive heart failure of unknown etiology (Acute) This is not especially active at present Elevated troponin I measurement (Acute) not likely due to CAD Fall (Acute) She still has pain from her fall Gait difficulty (Acute) She is going to require subacute rehabilitation Mitral regurgitation (Acute) Not severe Nausea and vomiting (Acute) resolved Weakness of both legs (Acute) She has generalized weakness Anticoagulation goal of INR 2 to 3 (Chronic) Therapeutic Atrial fibrillation (Chronic) Rate controlled Cardiac pacemaker (Chronic) ongoing Diverticulosis (Chronic) no positive evidence of diverticulitis Essential (primary) hypertension (Chronic) stable Hyperlipidemia (Chronic) continue current Rx Polymyalgia rheumatica (Chronic) This diagnosis has been one of exclusion Primary hypothyroidism (Chronic) continue current Rx Prolonged Q-T interval on ECG (Chronic 12/16/14) Rectal prolapse (Chronic) secondary diagnosis Type 2 diabetes mellitus (Chronic) This was when she took steroids for PMR - stop frequent FS Uterine prolapse (Chronic) secondary diagnosis Discussion with patient re: infective endocarditis. Discussion with daughter - she has had problems with her teeth - fracture after a fall. I explained the nature of the differential diagnosis and the need for 6 weeks of IV antibacterials. I also discussed the aortic stenosis. She agrees with management plan.
--- NOTE | 2016-12-03 10:48 | RAD ---
INDICATION: Right-sided PICC catheter placement COMPARISON: November 30, 2016 TECHNIQUE: An AP portable view obtained at 1025 hours is submitted. FINDINGS: Bones/Soft Tissues: There are no acute bony findings. There is a right-sided PICC catheter terminating in the superior vena cava. There is a dual-chamber left-sided cardiac pacemaker, unchanged Cardiomediastinal: The cardiac silhouette remains enlarged. Lungs: The right lung is clear. There is obscuration left hemidiaphragm consistent with infiltrate or atelectasis or pleural fluid. Pleura: Suspect left-sided pleural effusion. Other: None IMPRESSION: RIGHT-SIDED PICC CATHETER IN EXPECTED POSITION. LEFT BASILAR AIRSPACE DISEASE WITH SUSPECTED PLEURAL EFFUSION. SUGGEST FOLLOW-UP
[2016-12-03] MEDS: Multivitamins/Minerals TAB PO SCH (10:49)
[2016-12-03] MEDS: Ferrous Sulfate TAB* 325 MG PO SCH (10:49)
[2016-12-03] MEDS: Metoprolol Tartrate TAB* 50 mg PO SCH ×2 (10:49→20:57)
[2016-12-03] MEDS: Polyethylene Glycol 3350* 17 GM PACKET PO SCH (10:49)
[2016-12-03] MEDS: Docusate CAP* 100 MG PO SCH ×2 (10:49→20:57)
[2016-12-03] MEDS: Diltiazem CD CAP* 180 MG PO SCH (10:49)
[2016-12-03] MEDS: Furosemide TAB* 20 MG PO SCH (10:51)
[2016-12-03] MEDS: cefTRIAXone VIAL(*) 1,000 MG in NS 0.9% 50 ML* 50 ML IVPB SCH (16:03)
[2016-12-03] MEDS: Warfarin TAB(*) 2.5 MG PO SCH (16:03)
--- NOTE | 2016-12-03 18:28 | CONS ---
CONSULTATION REPORT: DATE OF CONSULT: 12/03/16 REQUESTING PHYSICIAN: Dr. Reyez. CONSULTING SERVICE: Infections Disease. REASON FOR CONSULT: Question of infective endocarditis. IMPRESSION: 1. Recent falls and workup revealed elevated inflammatory markers of white count of 21,000, sed rate of 80,000, C-reactive protein of 170,000. Transesophageal echocardiogram was obtained that showed a 1.9 x 0.6 cm echodensity on the mitral valve which could be vegetation or annular calcification. The blood cultures are negative which argues against infective endocarditis. She has no inflammatory symptoms either; however, she has been on corticosteroids. She has no peripheral stigmata of infective endocarditis, but with the inflammatory marker being elevated and echocardiographic abnormality, infectious endocarditis is still on the list, including the culture -negative varieties which include Q fever, brucellosis, bartonellosis, the most common cause of streptococcal infection in the setting of preceding antibiotics before cultures were taken; however, she did not have antibiotic therapy before cultures were taken, so that is less likely. So far, there have been no alternative diagnoses made. She does have a predisposing condition of a cardiac pacemaker, which complicates the situation. As such, we plan to treat her as infective endocarditis. 2. Status post pacemaker placement. 3. Recent falls. 4. Atrial fibrillation. 5. Diabetes. RECOMMENDATION: Continue ceftriaxone 1 g daily. We will follow up all of her blood cultures, which are up to this point negative. I will stop vancomycin as I think she should have grown MRSA or enterococcus if that was the cause of the infection. I will add serology for Q fever, bartonella, brucella. She has a PICC line planned for 6 weeks of IV antibiotics at the intermediate and we will follow the C-reactive protein over time to see if that continues to improve. HISTORY OF PRESENT ILLNESS: This is an 86-year-old woman with a pacemaker admitted with number of falls recently. She had some sutures placed on her lip , on her hand, and then fell again recently, was found down for overnight. She was brought to the hospital on November 30. She had white blood cell count of 20, 000, her C- reactive protein was 150, it climbed to 170 on the . She had a transthoracic echo and then a transesophageal echocardiogram with findings as above, which I have discussed with Dr. Wallace. I discussed the case with Dr. Reyez yesterday and recommended starting vancomycin and ceftriaxone after noticed her blood cultures which were taken and are so far negative. Today, she has pain in her back and a couple of other sites where she was lying down on the ground for a day. She has no focal weakness in her arms or legs. She generally feels weak everywhere. She has had no fever, chills, or sweats since she has been here. She had no diarrhea. PAST MEDICAL HISTORY: 1. Atrial fibrillation. 2. Hypertension. 3. Hypothyroidism. 4. Anxiety. 5. Hyperlipidemia. 6. Diverticulitis. 7. Arthritis. 8. Diabetes. 9. Status post pacemaker placement. 10. History of cataract extraction. 11. Status post . 12. Status post temporal artery biopsy. MEDICATIONS: 1. Tylenol. 2. Lipitor. 3. Ferrous sulfate. 4. Lasix. 5. Levothyroxine. 6. Metoprolol. 7. Ceftriaxone 1 g a day. 8. Vancomycin 1 g every 12 hours. 9. Coumadin. ALLERGIES: No known drug allergies. FAMILY HISTORY: No recurrent infections. SOCIAL HISTORY: She lives in [place] by herself on the [place]. Not much contact with farm animals. No sick contacts. No injection drugs. No pets. REVIEW OF SYSTEMS: A full review of systems was negative except as noted above. PHYSICAL EXAM: Vital Signs: Temperature is 36.3, heart rate 70, respiratory rate 14, blood pressure 120/50, O2 sat 96% on room air. General: She is awake and in no distress. Neurologic: She is oriented x3, follows all commands. Moves all extremities. HEENT: There is no conjunctival hemorrhage. Oropharynx : Without lesions. Neck: Supple without nuchal rigidity. Lymph Nodes: There is no cervical, supraclavicular, inguinal, axillary, or epitrochlear lymphadenopathy. Heart has regular rate and rhythm without murmurs, rubs or gallops. Lungs are clear to auscultation bilaterally. Abdomen: Soft, nontender , nondistended without hepatosplenomegaly. Skin: There is no rash or splinter hemorrhages. Musculoskeletal: There is no spine tenderness to palpation or joint synovitis. LABORATORY DATA: CRP 140. Creatinine 0.5. White blood cell count 9, hemoglobin 10, platelets 211. Please see impressions and recommendations as outlined above, which I have discussed with Dr. Wallace and Dr. Reyez. Thanks for asking me to see Roxy Jessica in consultation. [id number]/CPS #: [id number] GURINDER
[2016-12-03] MEDS: Atorvastatin* 10 MG TAB PO SCH (20:57)
[2016-12-04] MEDS: Acetaminophen TAB* 325 MG PO PRN ×2 (01:44→06:36)
[2016-12-04] MEDS: Levothyroxine TAB* 112 MCG TAB PO SCH (06:13)
[2016-12-04 06:28] LABS: Hematocrit 29 % (35-47); Hemoglobin 9.7 g/dl (12.0-16.0); Mean Corpuscular HGB Conc 33 g/dl (31-36); Mean Corpuscular Hemoglobin 28 pg (27-31); Mean Corpuscular Volume 85 fL (80-97); Mean Platelet Volume 10 um3 (7.4-10.4); Red Blood Count 3.45 10^6/ul (4.0-5.4); Red Cell Distribution Width 19 % (10.5-15); White Blood Count 8.3 10^3/ul (3.5-10.8)
[2016-12-04 06:41] LABS: EGFR African American 117.7 (>60); EGFR Non-African American 91.5 (>60)
[2016-12-04] MEDS: Polyethylene Glycol 3350* 17 GM PACKET PO SCH (11:47)
[2016-12-04] MEDS: Ferrous Sulfate TAB* 325 MG PO SCH (11:52)
[2016-12-04] MEDS: Furosemide TAB* 20 MG PO SCH (11:52)
[2016-12-04] MEDS: Multivitamins/Minerals TAB PO SCH (11:52)
[2016-12-04] MEDS: Metoprolol Tartrate TAB* 50 mg PO SCH ×2 (11:52→20:44)
[2016-12-04] MEDS: Diltiazem CD CAP* 180 MG PO SCH (11:52)
[2016-12-04] MEDS: Docusate CAP* 100 MG PO SCH ×2 (11:52→20:44)
--- NOTE | 2016-12-04 12:33 | PN ---
Subjective - Subjective Reason for Note: Progress Note History: She is feeling relatively well today and has tolerated the PICC line and the IV ceftriaxone/vancomycin. She has had no further sweats or fevers. Her left shoulder continues to cause her intermittent pain. 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 Mitral regurgitation (Acute) Nausea and vomiting (Acute) R11.2 Weakness of both legs (Acute) R29.898 Anticoagulation goal of INR 2 to 3 (Chronic) Z51.81, Z79.01 Atrial fibrillation (Chronic) I48.91 Cardiac pacemaker (Chronic) Z95.0 Diverticulosis (Chronic) K57.90 Essential (primary) hypertension (Chronic) I10 Hyperlipidemia (Chronic) E78.5 Polymyalgia rheumatica (Chronic) M35.3 Primary hypothyroidism (Chronic) E03.9 Prolonged Q-T interval on ECG (Chronic 12/16/14) R94.31 Rectal prolapse (Chronic) K62.3 Type 2 diabetes mellitus (Chronic) Uterine prolapse (Chronic) N81.4 Current Medications: Current Medications Acetaminophen (Tylenol Tab*) 650 mg PO Q4H PRN PRN Reason: FEVER/PAIN Last Admin: 12/04/16 06:36 Dose: 650 mg Atorvastatin Calcium (Lipitor*) 10 mg PO BEDTIME [facility] Last Admin: 12/03/16 20:57 Dose: 10 mg Diltiazem HCl (Cardizem Cd Cap*) 180 mg PO DAILY [facility] Last Admin: 12/04/16 11:52 Dose: 180 mg Docusate Sodium (Colace Cap*) 100 mg PO BID [facility] Last Admin: 12/04/16 11:52 Dose: 100 mg Ferrous Sulfate (Ferrous Sulfate Tab*) 325 mg PO DAILY [facility] Last Admin: 12/04/16 11:52 Dose: 325 mg Furosemide (Lasix Tab*) 20 mg PO 1200 [facility] Last Admin: 12/04/16 11:52 Dose: 20 mg Heparin Sodium (Porcine) (Heparin Flush Picc/Ml/Cvc(*)) 0 ml FLUSH 0600,1800 [facility] PRN Reason: Protocol Last Admin: 12/04/16 06:13 Dose: 1 ml Ceftriaxone Sodium 1,000 mg/ (Sodium Chloride) 50 mls @ 200 mls/hr IVPB Q24H [facility] Last Admin: 12/03/16 16:03 Dose: 200 mls/hr Levothyroxine Sodium (Synthroid Tab*) 112 mcg PO 0600 [facility] Last Admin: 12/04/16 06:13 Dose: 112 mcg Metoprolol Tartrate (Lopressor Tab*) 50 mg PO BID [facility] Last Admin: 12/04/16 11:52 Dose: 50 mg Multivitamins/Minerals (Theragran/Minerals Tab*) 1 tab PO DAILY [facility] Last Admin: 12/04/16 11:52 Dose: 1 tab Ondansetron HCl (Zofran Inj*) 10 mg IV Q8H PRN PRN Reason: NAUSEA Pharmacy Profile Note (Coumadin Daily Reminder*) 1 note FOLLOW UP 1700 [facility] Last Admin: 12/03/16 16:09 Dose: 1 note Polyethylene Glycol/Electrolytes (Miralax*) 17 gm PO DAILY [facility] Last Admin: 12/04/16 11:47 Dose: 17 gm Warfarin Sodium (Coumadin Tab(*)) 5 mg PO Gil@1700 [facility] PRN Reason: Protocol Warfarin Sodium (Coumadin Tab(*)) 2.5 mg PO MoTuWeThFrSa@1700 [facility] PRN Reason: Protocol Last Admin: 12/03/16 16:03 Dose: 2.5 mg Home Medications: Home Medications Medication Instructions Recorded Confirmed Type Furosemide TAB* [Lasix TAB*] 20 mg PO 1200 04/07/13 11/30/16 History Levothyroxine TAB* [Synthroid TAB*] 112 mcg PO QAM 04/07/13 11/30/16 History Metoprolol Tartrate TAB* 50 mg PO BID 09/10/15 11/30/16 History [Lopressor TAB*] Calcium Carbonate-Cholecalcife 1 tab PO DAILY 11/30/16 11/30/16 History [Calcium 600+D3 600-400 mg-Unit] Cholecalciferol TAB* [Vitamin D 1,000 unit PO DAILY 11/30/16 11/30/16 History TAB*] Diltiazem HCl Extended Release 180 mg PO DAILY 11/30/16 11/30/16 History [Diltiazem HCl ER] Docusate CAP* [Colace Cap*] 100 mg PO BID 11/30/16 11/30/16 History Ferrous Sulfate TAB* 325 mg PO DAILY 11/30/16 11/30/16 History Multivitamins/Minerals TAB* 1 tab PO DAILY 11/30/16 11/30/16 History [Theragran/minerals TAB*] [place]-3 Fatty Acids (Nf) [Fish Oil 1,000 mg PO DAILY 11/30/16 11/30/16 History (NF)] Simvastatin TAB(NF) [Zocor(NF)] 20 mg PO BEDTIME 11/30/16 11/30/16 History Warfarin TAB(*) [Coumadin TAB(*)] 2.5 mg PO MOTUWETHFRSA 11/30/16 11/30/16 History Warfarin TAB(*) [Coumadin TAB(*)] 5 mg PO GIL 11/30/16 11/30/16 History Allergies: Allergies Allergy/AdvReac Type Severity Reaction Status Date / Time No Known Allergies Allergy Verified 12/15/14 20:35 Objective - Vital Signs Vital Signs: Vital Signs 12/03/16 12/03/16 12/03/16 15:38 19:40 20:00 Temperature 98.3 F 98.8 F Pulse Rate 64 60 Respiratory 18 18 24 Rate Blood Pressure 138/58 138/54 (mmHg) O2 Sat by Pulse 97 97 Oximetry 12/03/16 12/04/16 12/04/16 23:57 04:04 08:00 Temperature 99.1 F 98.4 F Pulse Rate 62 67 Respiratory 16 16 16 Rate Blood Pressure 157/63 135/75 (mmHg) O2 Sat by Pulse 95 96 Oximetry 12/04/16 08:21 Temperature 98.3 F Pulse Rate 66 Respiratory 16 Rate Blood Pressure 153/58 (mmHg) O2 Sat by Pulse 99 Oximetry - Intake and Output Intake and Output: Intake & Output 12/02/16 12/03/16 12/04/16 12/05/16 11:59 11:59 11:59 11:59 Intake Total 420 1345 1625 Output Total 850 1050 550 Balance -898 134 8835 Intake: IV Fluids 333 55 ABX - VANCOMYCIN 250 NS (0.9%) 83 zofran 55 IVPB 352 ABX - CEFTRIAXONE 60 Oral 209 435 1275 Output: Urine 850 1050 550 Other: Estimated Void Medium # Bowel Movements 0 0 Estimated Stool Amount Small Small # Voids 0 1 ADLs: Meal Record Start: 11/30/16 18: 21 Freq: DAILY@0900,1400,1800 Status: Active Document 12/01/16 09:00 [id number] (Rec: 12/01/16 11:26 [id number] HOSP-C11) Document 12/01/16 14:00 [id number] (Rec: 12/01/16 14:25 [id number] TELE-C01) Document 12/01/16 18:00 [id number] (Rec: 12/01/16 22:12 [id number] TELE-C06) Document 12/02/16 09:04 [id number] (Rec: 12/02/16 09:04 [id number] TELE-C01) Document 12/02/16 13:53 [id number] (Rec: 12/02/16 13:54 [id number] TELE-C01) Document 12/02/16 16:24 [id number] (Rec: 12/02/16 16:24 [id number] TELE-C10) Document 12/02/16 18:00 [id number] (Rec: 12/02/16 22:19 [id number] TELE-C35) Document 12/03/16 09:00 [id number] (Rec: 12/03/16 10:48 [id number] TELE-C01) Document 12/03/16 14:00 [id number] (Rec: 12/03/16 14:40 OBV5131 TELE-C01) Document 12/03/16 18:00 [id number] (Rec: 12/03/16 18:38 [id number] TELE-C34) Intake and Output Start: 11/30/16 18: 21 Freq: DAILY@0600,1400,2200 Status: Active Document 11/30/16 21:50 [id number] (Rec: 11/30/16 21:50 [id number] TELE-C13) Document 12/01/16 05:21 [id number] (Rec: 12/01/16 05:23 [id number] TELE-C01) Document 12/01/16 14:00 [id number] (Rec: 12/01/16 14:25 [id number] TELE-C01) Document 12/01/16 22:00 [id number] (Rec: 12/01/16 22:25 [id number] TELE-C06) Document 12/02/16 06:00 [id number] (Rec: 12/02/16 06:07 [id number] TELE-C32) Document 12/02/16 13:53 [id number] (Rec: 12/02/16 13:54 [id number] TELE-C01) Document 12/02/16 22:00 [id number] (Rec: 12/02/16 22:19 [id number] TELE-C35) Document 12/03/16 06:00 [id number] (Rec: 12/03/16 06:12 GRL1873 TELE-C33) Document 12/03/16 10:52 [id number] (Rec: 12/03/16 10:53 [id number] TELE-C01) Document 12/03/16 22:00 [id number] (Rec: 12/03/16 22:20 [id number] TELE-C34) Document 12/04/16 01:08 [id number] (Rec: 12/04/16 01:09 [id number] TELE-C35) Document 12/04/16 06:00 [id number] (Rec: 12/04/16 06:36 [id number] TELE-C34) - Physical Exam General: No Cyanosis, No Anemia, No Jaundice, No Clubbing Skin: Normal: Rash Lungs and Chest: Yes: Chest Expansion Full, Chest Expansion Symetrica, Percussion Note Resonant, Vessicular Breath Sounds. No: Crackles, Wheezes, Respiratory Distress, Use of Accessory Muscles Heart Rate and Rhythm: Irregular JVP: Not Elevated Additional Cardiovascular: Yes: Normal Heart Sounds, Heart Murmur. No: Pedal Edema Abdominal Exam: Yes: Bowel Sounds Present. No: Distention, Soft, Abdominal Mass , Hepatomegaly, Abdominal Tenderness Results - Results Lab Results: Laboratory Results - last 24 hr 12/04/16 12/04/16 12/04/16 04:05 05:45 05:45 WBC 8.3 RBC 3.45 L Hgb 9.7 L Hct 29 L MCV 85 MCH 28 MCHC 33 RDW 19 H Plt Count 233 MPV 10 BUN 16 Creatinine 0.62 Est GFR ( Amer) 117.7 Est GFR (Non-Af Amer) 91.5 POC Glucose (mg/dL) 124 H Assessment - Problem List Assessment: Patient Problems Aortic stenosis (Acute) Congestive heart failure of unknown etiology (Acute) Elevated troponin I measurement (Acute) Fall (Acute) Gait difficulty (Acute) Infective endocarditis (Acute) Mitral annular calcification (Acute) Mitral regurgitation (Acute) Nausea and vomiting (Acute) Weakness of both legs (Acute) Anticoagulation goal of INR 2 to 3 (Chronic) Atrial fibrillation (Chronic) Cardiac pacemaker (Chronic) Diverticulosis (Chronic) Essential (primary) hypertension (Chronic) Hyperlipidemia (Chronic) Polymyalgia rheumatica (Chronic) Primary hypothyroidism (Chronic) Prolonged Q-T interval on ECG (Chronic 12/16/14) Rectal prolapse (Chronic) Type 2 diabetes mellitus (Chronic) Uterine prolapse (Chronic) SIRS (systemic inflammatory response syndrome) (Acute 12/16/14) Plan: Infective endocarditis (Acute)/ Mitral annular calcification (Acute)/SIRS ( systemic inflammatory response syndrome) (Acute 12/16/14) I have reviewed Dr. Tapia's note. I agree with his plan. We will treat her for 6 weeks with IV ceftriaxone 1 gm per day. 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 We are also pending other serology for more indolent infections of the mitral valve. Aortic stenosis (Acute) This is moderate to severe. I explained she may require TAVR Congestive heart failure of unknown etiology (Acute) no signs of this at present Elevated troponin I measurement (Acute) I am unclear as to why she had initial elevation of her troponin levels - it can happen with endocarditis Fall (Acute)Gait difficulty (Acute) OT/PT and SNF subacute rehab Mitral regurgitation (Acute) ongoing Nausea and vomiting (Acute) not active problem Weakness of both legs (Acute) PT/OT Anticoagulation goal of INR 2 to 3 (Chronic) I will recheck Atrial fibrillation (Chronic) Rate controlled Cardiac pacemaker (Chronic) functioning - some extra spikes. Diverticulosis (Chronic) inactive Essential (primary) hypertension (Chronic) inactive Hyperlipidemia (Chronic) Inactive Polymyalgia rheumatica (Chronic) unlikely - previous diagnosis Primary hypothyroidism (Chronic) on target Prolonged Q-T interval on ECG (Chronic 12/16/14) Rectal prolapse (Chronic) secondary diagnosis Type 2 diabetes mellitus (Chronic) not a problem Uterine prolapse (Chronic) secondary diagnosis I spoke to the patient and her daughter and discussed the possible diagnoses and the proposed management plan. She is willing to go to [facility] for sub acute rehab.
[2016-12-04] MEDS ORDERED: Vancomycin Trough Check NOTE FOLLOW UP ONE (13:30)
[2016-12-04] MEDS: cefTRIAXone VIAL(*) 1,000 MG in NS 0.9% 50 ML* 50 ML IVPB SCH (15:21)
[2016-12-04] MEDS: Warfarin TAB(*) 2.5 MG PO SCH (16:51)
[2016-12-04] MEDS: Atorvastatin* 10 MG TAB PO SCH (20:44)
[2016-12-05] MEDS: Levothyroxine TAB* 112 MCG TAB PO SCH (05:35)
[2016-12-05] MEDS: Acetaminophen TAB* 325 MG PO PRN ×3 (06:02→20:43)
[2016-12-05 06:46] LABS: BUN/Creatinine Ratio 22.4 (8-20); C Reactive Protein 60.46 mg/L (< 5.00); Calcium 8.9 mg/dL (8.6-10.3); EGFR African American 127.1 (>60); EGFR Non-African American 98.8 (>60); Hematocrit 32 % (35-47); Hemoglobin 10.8 g/dl (12.0-16.0); Mean Corpuscular HGB Conc 33 g/dl (31-36); Mean Corpuscular Hemoglobin 28 pg (27-31); Mean Corpuscular Volume 84 fL (80-97); Mean Platelet Volume 10 um3 (7.4-10.4); Potassium 3.9 mmol/L (3.5-5.0); Red Blood Count 3.85 10^6/ul (4.0-5.4); Red Cell Distribution Width 19 % (10.5-15); White Blood Count 10.9 10^3/ul (3.5-10.8)
[2016-12-05] MEDS: Polyethylene Glycol 3350* 17 GM PACKET PO SCH (09:19)
[2016-12-05] MEDS: Ferrous Sulfate TAB* 325 MG PO SCH (09:20)
[2016-12-05] MEDS: Docusate CAP* 100 MG PO SCH ×2 (09:20→20:38)
[2016-12-05] MEDS: Diltiazem CD CAP* 180 MG PO SCH (09:21)
[2016-12-05] MEDS: Metoprolol Tartrate TAB* 50 mg PO SCH ×2 (09:22→20:37)
[2016-12-05] MEDS: Multivitamins/Minerals TAB PO SCH (09:22)
[2016-12-05] MEDS: Furosemide TAB* 20 MG PO SCH (11:54)
--- NOTE | 2016-12-05 12:02 | PN ---
Subjective - Subjective Reason for Note: Progress Note History: She is feeling well this morning. Her left shoulder pain controlled by a hot pad and acetaminophen. She has had no chest pain, dyspnea or palpitations/edema There has been no fever, chills or shakes. 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 Mitral regurgitation (Acute) Nausea and vomiting (Acute) R11.2 Weakness of both legs (Acute) R29.898 Anticoagulation goal of INR 2 to 3 (Chronic) Z51.81, Z79.01 Atrial fibrillation (Chronic) I48.91 Cardiac pacemaker (Chronic) Z95.0 Diverticulosis (Chronic) K57.90 Essential (primary) hypertension (Chronic) I10 Hyperlipidemia (Chronic) E78.5 Polymyalgia rheumatica (Chronic) M35.3 Primary hypothyroidism (Chronic) E03.9 Prolonged Q-T interval on ECG (Chronic 12/16/14) R94.31 Rectal prolapse (Chronic) K62.3 Type 2 diabetes mellitus (Chronic) Uterine prolapse (Chronic) N81.4 Current Medications: Current Medications Acetaminophen (Tylenol Tab*) 650 mg PO Q4H PRN PRN Reason: FEVER/PAIN Last Admin: 12/05/16 06:02 Dose: 650 mg Atorvastatin Calcium (Lipitor*) 10 mg PO BEDTIME [facility] Last Admin: 12/04/16 20:44 Dose: 10 mg Diltiazem HCl (Cardizem Cd Cap*) 180 mg PO DAILY [facility] Last Admin: 12/05/16 09:21 Dose: 180 mg Docusate Sodium (Colace Cap*) 100 mg PO BID [facility] Last Admin: 12/05/16 09:20 Dose: 100 mg Ferrous Sulfate (Ferrous Sulfate Tab*) 325 mg PO DAILY [facility] Last Admin: 12/05/16 09:20 Dose: 325 mg Furosemide (Lasix Tab*) 20 mg PO 1200 [facility] Last Admin: 12/05/16 11:54 Dose: 20 mg Heparin Sodium (Porcine) (Heparin Flush Picc/Ml/Cvc(*)) 0 ml FLUSH 0600,1800 [facility] PRN Reason: Protocol Last Admin: 12/05/16 05:58 Dose: 1 ml Ceftriaxone Sodium 1,000 mg/ (Sodium Chloride) 50 mls @ 200 mls/hr IVPB Q24H [facility] Last Admin: 12/04/16 15:21 Dose: 200 mls/hr Levothyroxine Sodium (Synthroid Tab*) 112 mcg PO 0600 [facility] Last Admin: 12/05/16 05:35 Dose: 112 mcg Metoprolol Tartrate (Lopressor Tab*) 50 mg PO BID [facility] Last Admin: 12/05/16 09:22 Dose: 50 mg Multivitamins/Minerals (Theragran/Minerals Tab*) 1 tab PO DAILY [facility] Last Admin: 12/05/16 09:22 Dose: 1 tab Ondansetron HCl (Zofran Inj*) 10 mg IV Q8H PRN PRN Reason: NAUSEA Pharmacy Profile Note (Coumadin Daily Reminder*) 1 note FOLLOW UP 1700 [facility] Last Admin: 12/04/16 16:52 Dose: 1 note Polyethylene Glycol/Electrolytes (Miralax*) 17 gm PO DAILY [facility] Last Admin: 12/05/16 09:19 Dose: 17 gm Warfarin Sodium (Coumadin Tab(*)) 5 mg PO Gil@1700 [facility] PRN Reason: Protocol Warfarin Sodium (Coumadin Tab(*)) 2.5 mg PO MoTuWeThFrSa@1700 [facility] PRN Reason: Protocol Last Admin: 12/04/16 16:51 Dose: 2.5 mg Home Medications: Home Medications Medication Instructions Recorded Confirmed Type Furosemide TAB* [Lasix TAB*] 20 mg PO 1200 04/07/13 11/30/16 History Levothyroxine TAB* [Synthroid TAB*] 112 mcg PO QAM 04/07/13 11/30/16 History Metoprolol Tartrate TAB* 50 mg PO BID 09/10/15 11/30/16 History [Lopressor TAB*] Calcium Carbonate-Cholecalcife 1 tab PO DAILY 11/30/16 11/30/16 History [Calcium 600+D3 600-400 mg-Unit] Cholecalciferol TAB* [Vitamin D 1,000 unit PO DAILY 11/30/16 11/30/16 History TAB*] Diltiazem HCl Extended Release 180 mg PO DAILY 11/30/16 11/30/16 History [Diltiazem HCl ER] Docusate CAP* [Colace Cap*] 100 mg PO BID 11/30/16 11/30/16 History Ferrous Sulfate TAB* 325 mg PO DAILY 11/30/16 11/30/16 History Multivitamins/Minerals TAB* 1 tab PO DAILY 11/30/16 11/30/16 History [Theragran/minerals TAB*] [place]-3 Fatty Acids (Nf) [Fish Oil 1,000 mg PO DAILY 11/30/16 11/30/16 History (NF)] Simvastatin TAB(NF) [Zocor(NF)] 20 mg PO BEDTIME 11/30/16 11/30/16 History Warfarin TAB(*) [Coumadin TAB(*)] 2.5 mg PO MOTUWETHFRSA 11/30/16 11/30/16 History Warfarin TAB(*) [Coumadin TAB(*)] 5 mg PO GIL 11/30/16 11/30/16 History Allergies: Allergies Allergy/AdvReac Type Severity Reaction Status Date / Time No Known Allergies Allergy Verified 12/15/14 20:35 Objective - Vital Signs Vital Signs: Vital Signs 12/04/16 12/04/16 12/04/16 12:07 12:45 15:49 Temperature 99.0 F 98.5 F Pulse Rate 71 68 59 Respiratory 16 16 Rate Blood Pressure 89/65 153/62 131/53 (mmHg) O2 Sat by Pulse 98 98 Oximetry 12/04/16 12/04/16 12/04/16 16:35 20:00 20:43 Temperature Pulse Rate 70 Respiratory 20 Rate Blood Pressure 129/50 (mmHg) O2 Sat by Pulse 98 97 Oximetry 12/04/16 12/05/16 12/05/16 23:58 07:16 07:28 Temperature 98.7 F 98.2 F Pulse Rate 68 72 Respiratory 20 16 16 Rate Blood Pressure 147/57 156/66 (mmHg) O2 Sat by Pulse 98 96 Oximetry 12/05/16 12/05/16 09:26 10:37 Temperature 98.4 F Pulse Rate 70 Respiratory 16 Rate Blood Pressure 135/45 (mmHg) O2 Sat by Pulse 96 98 Oximetry - Intake and Output Intake and Output: Intake & Output 12/02/16 12/03/16 12/04/16 12/05/16 11:59 11:59 11:59 11:59 Intake Total 420 1345 1865 1315 Output Total 850 1050 550 0 Balance -923 801 7728 1315 Intake: IV Fluids 333 55 ABX - VANCOMYCIN 250 NS (0.9%) 83 zofran 55 IVPB 352 ABX - CEFTRIAXONE 60 Oral 322 273 8109 1315 Output: Urine 850 1050 550 0 Other: Estimated Void Medium Large # Bowel Movements 0 0 1 Estimated Stool Amount Small Small Medium # Voids 0 1 2 ADLs: Meal Record Start: 11/30/16 18: 21 Freq: DAILY@0900,1400,1800 Status: Active Document 12/01/16 09:00 [id number] (Rec: 12/01/16 11:26 [id number] HOSP-C11) Document 12/01/16 14:00 [id number] (Rec: 12/01/16 14:25 [id number] TELE-C01) Document 12/01/16 18:00 [id number] (Rec: 12/01/16 22:12 [id number] TELE-C06) Document 12/02/16 09:04 NFH4100 (Rec: 12/02/16 09:04 NQH5930 TELE-C01) Document 12/02/16 13:53 PWB9097 (Rec: 12/02/16 13:54 KHK9094 TELE-C01) Document 12/02/16 16:24 MTQ5639 (Rec: 12/02/16 16:24 TUM0946 TELE-C10) Document 12/02/16 18:00 MNF6302 (Rec: 12/02/16 22:19 ZGH5626 TELE-C35) Document 12/03/16 09:00 UOJ7852 (Rec: 12/03/16 10:48 BMF7219 TELE-C01) Document 12/03/16 14:00 IAE1042 (Rec: 12/03/16 14:40 EFC3075 TELE-C01) Document 12/03/16 18:00 [id number] (Rec: 12/03/16 18:38 KIX0505 TELE-C34) Document 12/04/16 09:00 ZUG8286 (Rec: 12/04/16 14:30 [id number] TELE-C01) Document 12/04/16 14:00 JTW1434 (Rec: 12/04/16 14:34 USL7807 TELE-C01) Document 12/04/16 18:00 [id number] (Rec: 12/04/16 18:39 RLU4465 TELE-C01) Intake and Output Start: 11/30/16 18: 21 Freq: DAILY@0600,1400,2200 Status: Active Document 11/30/16 21:50 [id number] (Rec: 11/30/16 21:50 [id number] TELE-C13) Document 12/01/16 05:21 [id number] (Rec: 12/01/16 05:23 DYV6386 TELE-C01) Document 12/01/16 14:00 ULA1101 (Rec: 12/01/16 14:25 [id number] TELE-C01) Document 12/01/16 22:00 CMX7665 (Rec: 12/01/16 22:25 [id number] TELE-C06) Document 12/02/16 06:00 [id number] (Rec: 12/02/16 06:07 [id number] TELE-C32) Document 12/02/16 13:53 GXZ0326 (Rec: 12/02/16 13:54 GXH5443 TELE-C01) Document 12/02/16 22:00 NKZ4520 (Rec: 12/02/16 22:19 [id number] TELE-C35) Document 12/03/16 06:00 CHW1048 (Rec: 12/03/16 06:12 BWA4149 TELE-C33) Document 12/03/16 10:52 [id number] (Rec: 12/03/16 10:53 KEF3191 TELE-C01) Document 12/03/16 22:00 [id number] (Rec: 12/03/16 22:20 [id number] TELE-C34) Document 12/04/16 01:08 [id number] (Rec: 12/04/16 01:09 [id number] TELE-C35) Document 12/04/16 06:00 [id number] (Rec: 12/04/16 06:36 [id number] TELE-C34) Document 12/04/16 14:00 UGS1055 (Rec: 12/04/16 14:34 RZP6792 TELE-C01) Document 12/04/16 22:00 [id number] (Rec: 12/04/16 22:56 [id number] TELE-C01) Document 12/05/16 06:00 [id number] (Rec: 12/05/16 06:05 [id number] TELE-L04) - Physical Exam General: No Cyanosis, No Anemia, No Jaundice, No Clubbing Lungs and Chest: Yes: Chest Expansion Full, Chest Expansion Symetrica, Percussion Note Resonant, Vessicular Breath Sounds. No: Crackles, Wheezes, Respiratory Distress, Use of Accessory Muscles Heart Rate and Rhythm: Irregular Additional Cardiovascular: Yes: Normal Heart Sounds, Heart Murmur. No: Pedal Edema Abdominal Exam: Yes: Soft, Bowel Sounds Present. No: Distention, Hepatomegaly, Abdominal Tenderness Results - Results Lab Results: Laboratory Results - last 24 hr 12/05/16 12/05/16 12/05/16 04:21 05:55 05:55 WBC 10.9 H RBC 3.85 L Hgb 10.8 L Hct 32 L MCV 84 MCH 28 MCHC 33 RDW 19 H Plt Count 306 MPV 10 Neut % (Auto) 63.5 Lymph % (Auto) 24.0 L Delta % (Auto) 9.2 H Eos % (Auto) 2.6 Baso % (Auto) 0.7 Absolute Neuts (auto) 6.9 Absolute Lymphs (auto) 2.6 Absolute Monos (auto) 1.0 H Absolute Eos (auto) 0.3 Absolute Basos (auto) 0.1 Absolute Nucleated RBC 0.01 Nucleated RBC % 0.1 Sodium 136 Potassium 3.9 Chloride 101 Carbon Dioxide 29 Anion Gap 6 BUN 13 Creatinine 0.58 Est GFR ( Amer) 127.1 Est GFR (Non-Af Amer) 98.8 BUN/Creatinine Ratio 22.4 H Glucose 109 H POC Glucose (mg/dL) 124 H Calcium 8.9 C-Reactive Protein 60.46 H Assessment - Problem List Assessment: Patient Problems Aortic stenosis (Acute) Congestive heart failure of unknown etiology (Acute) Elevated troponin I measurement (Acute) Fall (Acute) Gait difficulty (Acute) Infective endocarditis (Acute) Mitral annular calcification (Acute) Mitral regurgitation (Acute) Nausea and vomiting (Acute) Weakness of both legs (Acute) Anticoagulation goal of INR 2 to 3 (Chronic) Atrial fibrillation (Chronic) Cardiac pacemaker (Chronic) Diverticulosis (Chronic) Essential (primary) hypertension (Chronic) Hyperlipidemia (Chronic) Polymyalgia rheumatica (Chronic) Primary hypothyroidism (Chronic) Prolonged Q-T interval on ECG (Chronic 12/16/14) Rectal prolapse (Chronic) Type 2 diabetes mellitus (Chronic) Uterine prolapse (Chronic) SIRS (systemic inflammatory response syndrome) (Acute 12/16/14) Plan: Infective endocarditis (Acute)Mitral annular calcification (Acute) She is tolerating the treatment well with IV cetriaxone - her CRP is coming down Aortic stenosis (Acute) ongoing Congestive heart failure of unknown etiology (Acute) inactive problem Elevated troponin I measurement (Acute) no signs of ischemia Fall (Acute) She continues to have pain in her left shoulder Gait difficulty (Acute) She is receiving PT/OT I am transferring her tomorrow to [facility] for IV antibacterials and subacute rehab. The patient is well aware of this and agrees with the management solomon
[2016-12-05 15:19] LABS: Bartonella Henselae IgG <1:128 titer (<1:128); Bartonella Henselae IgM <1:20 titer (<1:20); Bartonella Quintana IgM <1:20 titer (<1:20)
[2016-12-05] MEDS: cefTRIAXone VIAL(*) 1,000 MG in NS 0.9% 50 ML* 50 ML IVPB SCH (16:26)
[2016-12-05] MEDS ORDERED: Warfarin TAB(*) 5 MG PO SCH (17:00)
[2016-12-05] MEDS: Atorvastatin* 10 MG TAB PO SCH (20:37)
[2016-12-06] MEDS: Acetaminophen TAB* 325 MG PO PRN (00:48)
[2016-12-06] MEDS: Levothyroxine TAB* 112 MCG TAB PO SCH (05:19)
[2016-12-06 08:00] VITALS: BP 157/68
[2016-12-06] MEDS: Ferrous Sulfate TAB* 325 MG PO SCH (09:10)
[2016-12-06] MEDS: Docusate CAP* 100 MG PO SCH (09:11)
[2016-12-06] MEDS: Diltiazem CD CAP* 180 MG PO SCH (09:11)
[2016-12-06] MEDS: Multivitamins/Minerals TAB PO SCH (09:13)
[2016-12-06] MEDS: Metoprolol Tartrate TAB* 50 mg PO SCH (09:13)
[2016-12-06] MEDS: Polyethylene Glycol 3350* 17 GM PACKET PO SCH (09:16)
[2016-12-06] MEDS: Furosemide TAB* 20 MG PO SCH (12:24)
--- NOTE | 2016-12-06 12:57 | DS ---
DISCHARGE SUMMARY: DATE OF ADMISSION: 11/30/16 DATE OF DISCHARGE: 12/06/16 DISPOSITION: Discharged to [facility]. DISCHARGE DIAGNOSES: 1. 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 2. SIRS (systemic inflammatory response.) 3. Moderate to severe aortic stenosis. 4. Moderate mitral regurgitation. 5. Fall, weakness. 6. Left shoulder pain following fall. SECONDARY DIAGNOSES: 1. Elevated troponin-I measurement. 2. Chronic atrial fibrillation, rate controlled. 3. Cardiac pacemaker. COMORBIDITIES: 1. Essential hypertension. 2. Diverticulosis. 3. Hyperlipidemia. 4. Remote history of polymyalgia rheumatica. 5. Primary hypothyroidism. 6. Rectal and uterine prolapse. 7. History of type 2 diabetes when treated with steroids. HISTORY: Arlene Lopez is an 86-year-old right-handed white female. Her presentation is provided by Edgardo Castro NP and is part of the electronic medical record. In short, she had a history of recent falls and had been to the emergency room 11/15/16 with a fall, which resulted in a facial laceration, broken tooth. She had become unwell with some fevers, nausea, anorexia, weakness 4 to 5 days prior to admission. On the night before admission, she had washed her teeth, got into the kitchen, sat down on the chair in order to put some cream on her face, stood up and then fell. She could not get herself up and was on the floor overnight. She denies head injury. She denies any loss of consciousness and remembered the entire episode. She denied having any chest pain, shortness of breath prior to the episode of any palpitations. She was too weak and too much pain to move to reach the phone. Her friend found her the next morning and sent her to the hospital. Examination showed blood pressure 168/61, pulse 90, respirations 18, oxygen saturation 96%, temperature 98.9. Atraumatic head. She had pain in her lower extremities. Otherwise, nothing specific noted. Initial labs, white count 22.2, hemoglobin 11.2, hematocrit 35, platelets 221. INR 1.65. Sodium 136, potassium 3.2, chloride 100, bicarbonate 30, BUN 14, creatinine 0.69, glucose 145, lactic acid 1.9, calcium 9.7, magnesium 1.9. LFT were normal. CK 364, troponin-I 0.07. C-reactive protein 157, BNP 404. CT scan of the brain, no intracranial masses or hemorrhages. Other imaging - cervical spine CT, chest x- ray, hip/pelvis x-ray, femur x-ray, knee x-ray, lower extremity x-ray, shoulder x-ray in the emergency room on the right side and on 12/02/16 on the left side all negative for acute fractures. EKG: Atrial fibrillation at 90, lateral T-wave inversions, which was same on previous EKGs. INITIAL IMPRESSION: 1. Fall with weakness. This was assessed as a mechanical fall. She did not appear to have rhabdomyolysis. 2. Atrial fibrillation. Her INR was subtherapeutic. 3. Leukocytosis. Suggested as a leukemoid response, but the CRP was elevated. She was brought in for telemetry. CONSULTATIONS: On 12/01/16, Dr. Adela Wallace for Cardiology and her report is part of the electronic medical record. She performed a pacemaker interrogation. No evidence of any dysrhythmia. The patient had a transthoracic echocardiogram, mild left ventricular hypertrophy, ejection fraction 55% to 60%, moderate aortic valve stenosis with a gradient of 13 mmHg, aortic valve area of 1.1 sq cm. Mild to moderate mitral and mild to moderate tricuspid insufficiency. There was no evidence of any pacemaker malfunction and no evidence of any dysrhythmia. No evidence of endocarditis on the transthoracic echocardiogram. In terms of inflammation, Dr. Wallace recommended transesophageal echocardiogram, which is more sensitive for infective endocarditis than a transthoracic echocardiogram. On 12/03/16, consultation with Dr. Dimitri Tapia. His report is part of the electronic medical record. He notes that the transesophageal echocardiogram showed an echodensity 1.9 x 0.6 cm on the mitral valve, which could be a vegetation or annular calcification. Negative blood cultures argued against infective endocarditis. She had no peripheral stigmata of infective endocarditis, but had elevated inflammatory markers. He considered culture negative endocarditis and suggested serology, recommended ceftriaxone management 1 g IV for a 6-week period followed by another transesophageal echocardiogram to confirm resolution of the vegetation. INVESTIGATIONS: Transesophageal echocardiogram 12/02/16 as noted above. Suspicious area of echodensity on the mitral valve measuring 1.9 cm to 0.6 cm, considered a vegetation. Other findings, left atrium severely dilated, right atrium moderately to severely dilated, moderate to severe aortic stenosis, mild to moderate mitral regurgitation, mild mitral stenosis. Other laboratory findings, her WBC resolved during the hospitalization, going from 22.2 to 10.9 on 12/05/16. C-reactive protein also came down, it was 158 on 12/02/16, 168 on 12/05/16 . Procalcitonin on 12/01/16 was 0.2, TSH was 0.43. Her troponin-I series was 0.03 , 0.07, 0.09 and 0.1. Microbiology, 4 sets of blood cultures were uniformly negative. Influenza A and B negative. Urine culture negative. Fecal occult blood was positive. Vitamin B12 was 408. HOSPITAL COURSE: During the hospitalization, the patient had resolution of her immediate symptoms such as nausea and anorexia. She did not develop chest pain , shortness of breath, or palpitations. She felt uniformly weak. She had pain in her left shoulder from the fall and also had some pain in her legs. She was reviewed by physical therapy on a couple of occasions. She was able to sit, stand and pivot. She could walk 3 to 5 steps with a rolling walker. She fatigued easily. She was making gradual process, but required rehab. On the day of discharge, she continues to feel weak and does not fully understand why this is the case. She has no chest pain, palpitations or shortness of breath. She has regained her appetite. She has pain in her left shoulder. PHYSICAL EXAMINATION: On day of discharge, temperature 98.2, pulse 67, respirations 20, oxygen saturation 99% on room air, blood pressure 167/68. She is a little pale. No cyanosis, jaundice, clubbing or adenopathy. Cardiovascular: Irregularly irregular. Venous pressure not distended. Heart sounds are normal. She has a 3/6 systolic ejection murmur, maximum at the aortic area left sternal edge and she has a pansystolic murmur at the apex radiating to axilla. She has no pedal edema. Pedal pulses are present. No carotid bruits. Respiratory System: Her chest expansion is full and symmetrical. Percussion note was resonant. Breath sounds are vesicular. No crackles or wheezes. Abdomen: No distention, masses, tenderness or organomegaly. Bowel sounds are normal. Nervous system: Alert and oriented x3. Normal speech. Cranial nerves II through XII intact. Her arms and legs generally weak but no focal neurological abnormalities. ASSESSMENT AND PLAN: 1. 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 The appearance of this according to Cardiology is rather large for a mitral valve rim calcification and looks more typical of a vegetation from infective endocarditis and given the systemic inflammatory response, we are treating her formerly with 6 weeks of IV ceftriaxone 1 g a day by her PICC line, which was inserted without events. She will require assistance with this and at first this will be at [facility]. If she becomes strong enough, she will be able to go home and then there will be a question of whether this would be done by family member, visiting nurse services or daily trips to the [facility]. She requires followup visit with Cardiology with Dr. Adela Wallace, her primary senior loan officer and with Dr. Dimitri Tapia for infectious disease followup. She will require blood work on a weekly basis with a BMP, CBC, electronic diff, C-reactive protein. 2. Moderate to severe aortic stenosis, mitral valve disease with mild to moderate regurgitation and mild mitral stenosis. 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 I am concerned at this point, that the large doses of beta-gregory may increase her weakness. This is something that Dr. Wallace will address and if she does not respond well to rehabilitation, we may consider reducing the dose. 3. Chronic atrial fibrillation. Her INR was on target and she requires weekly INR and adjustments of her Warfarin. 4. Left shoulder pain. X-ray of the left shoulder was normal. I suspect she strained some of the muscles and ligaments. She requires PT for this. 5. Generalized weakness. She has had prolonged bedrest and has had poor nutrition for several weeks. She will require subacute rehabilitation for this. 6. Cardiac pacemaker. This is functional. 7. Essential hypertension. Her blood pressure has been slightly above target, but does not require further antihypertensives. 8. Hyperlipidemia. Continue current medication. 9. Primary hypothyroidism. Her TSH is on target, we should continue with the current medication. 10. History of rectal and uterine prolapse, these will need to be overseen. 11. Gait difficulty. This is likely multifactorial and will require PT/OT. 12. Multiple falls. This relates likely to the gait difficulty. She may also have some balance problems and I am concerned that she may have some problems with cardiac medication given her aortic stenosis. MEDICATIONS: 1. Ceftriaxone. We started on 12/02/16, she requires 1 g IV daily with the completion date aimed at 01/13/17. She should have usual measures to maintain the integrity of the PICC line. 2. Acetaminophen 650 mg every 4 hours p.r.n. for pain. 3. MiraLax 17 g every day as needed for constipation. 4. Levothyroxine 112 mcg daily. 5. Furosemide 20 mg p.o. daily. 6. Metoprolol 50 mcg twice daily. 7. Rainelle-3 fatty acids 1000 mg every day. 8. Multivitamin once a day. 9. Vitamin D3 1000 units daily. 10. Calcium carbonate 600 mg/400 units vitamin D once a day. 11. Simvastatin 20 mg at bedtime. 12. Docusate sodium 100 mg twice daily as needed. 13. Ferrous sulfate 325 mg daily. 14. Warfarin 2.5 mg Tuesday, Tuesday, Tuesday, , Tuesday, and Tuesday , 5 mg every Tuesday. 15. Diltiazem extended release 180 mg daily. CC: [facility]; Dimitri Tapia MD; Adela Wallace MD * [id number]/[facility] #: [id number] MTDD
== END 2016-12-06 12:40 | DRG 307 ==
LOC: ED 12:30 → MEDTELE 17:14 → OBSVTOIN 12-01 10:00 → MED 12-05 10:42
PROVIDERS: ADMIT Internal Medicine; ATTEND Internal Medicine
PROC: B246ZZ4 Ultrasonography of Right and Left Heart, Transesophageal (ICD-10-PCS; 2016-12-02)
PROC: 02HV33Z Insertion of Infusion Device into Superior Vena Cava, Percutaneous Approach (ICD-10-PCS; principal; 2016-12-03)
DX: I01.1 Acute rheumatic endocarditis (principal); I48.2 Chronic atrial fibrillation; I11.0 Hypertensive heart disease with heart failure; I50.9 Heart failure, unspecified; R74.8 Abnormal levels of other serum enzymes; E11.9 Type 2 diabetes mellitus without complications; K57.90 Diverticulosis of intestine, part unspecified, without perforation or abscess without bleeding; E78.5 Hyperlipidemia, unspecified; E03.8 Other specified hypothyroidism; N81.4 Uterovaginal prolapse, unspecified; K62.2 Anal prolapse; R53.1 Weakness; W18.30XA Fall on same level, unspecified, initial encounter; Z91.81 History of falling; Y92.000 Kitchen of unspecified non-institutional (private) residence as the place of occurrence of the external cause; Z95.0 Presence of cardiac pacemaker; Z79.01 Long term (current) use of anticoagulants; Z79.899 Other long term (current) drug therapy; Z82.3 Family history of stroke; Z82.49 Family history of ischemic heart disease and other diseases of the circulatory system; M35.3 Polymyalgia rheumatica; M25.512 Pain in left shoulder
CPT/HCPCS: 36415; 70450; 71010; 72125; 80048; 80053; 80076; 81003; 81015; 82270; 82550; 82553; 82565; 83036; 83605; 83690; 83735; 83880; 84145; 84443; 84484; 84520; 85014; 85018; 85025; 85027; 85379; 85610; 85652; 85730; 86140; 86431; 86611; 86622; 86638; 86850; 86900; 86901; 87040; 87086; 87502; 93005; 93306; 93312; 93325; 94760; A9270-GY; C1751; G0378; G8978-GP-CL; G8978-GP-CM; G8979-GP-CI; G8980-GP-CI; J0696; J2250; J2310; J2405; J3010; J3370; J3480

== ENCOUNTER 2017-01-13 13:15 | Emergency (ER) | payer MEDICARE ==
[2017-01-13 13:37] LABS: Add Diff/Slide Review? Slide Review Added; Comments Flag Yes; Hematocrit 34 % (35-47); Hemoglobin 10.7 g/dl (12.0-16.0); Mean Corpuscular HGB Conc 32 g/dl (31-36); Mean Corpuscular Hemoglobin 27 pg (27-31); Mean Corpuscular Volume 86 fL (80-97); Mean Platelet Volume 10 um3 (7.4-10.4); Red Blood Count 3.91 10^6/ul (4.0-5.4); Red Cell Distribution Width 20 % (10.5-15); White Blood Count 8.4 10^3/ul (3.5-10.8)
[2017-01-13 13:49] LABS: Albumin 3.1 g/dL (3.2-5.2); BUN/Creatinine Ratio 27.5 (8-20); Calcium 8.6 mg/dL (8.6-10.3); EGFR African American 87.7 (>60); EGFR Non-African American 68.2 (>60); Globulin 2.8 g/dL (2-4); Magnesium 1.9 mg/dL (1.9-2.7); Potassium 3.9 mmol/L (3.5-5.0); Total Bilirubin 0.4 mg/dL (0.2-1.0); Total Protein 5.9 g/dL (6.4-8.9)
[2017-01-13 13:50] LABS: Troponin I 0.03 ng/mL (<0.04)
[2017-01-13 14:09] LABS: T4 8.8 mcg/mL (6.09-12.23)
[2017-01-13 14:10] LABS: TSH (Thyroid Stimulating Horm) 2.65 mcIU/mL (0.34-5.60)
--- NOTE | 2017-01-13 17:02 | ED ---
Heath Diaz Billy, scribed for Chandrakant Cuello MD on 01/13/17 at 1337 . Complex/Multi-Sys Presentation - HPI Summary HPI Summary: Patient is an 86 year-old female with a history of endocarditis coming to [facility] from Dr. Wallace's office for evaluation of an aortic dissection. She was being seen for a transesophageal echocardiogram, at which time the dissection was revealed. Here in the ED, her vitals are stable and she is asymptomatic. Denies chest pain, shortness of breath, or dizziness. - History Of Current Complaint Chief Complaint: EDChestPainROMI Time Seen by Provider: 01/13/17 13:25 Hx Obtained From: Patient Location: Negative Aggravating Factor(s): n/a Alleviating Factor(s): n/a Associated Signs And Symptoms: Negative: Dizziness, SOB, Chest Pain, Abdominal Pain - Allergies/Home Medications Allergies/Adverse Reactions: Allergies Allergy/AdvReac Type Severity Reaction Status Date / Time No Known Allergies Allergy Verified 12/15/14 20:35 PMH/Surg Hx/FS Hx/Imm Hx Endocrine/Hematology History: Reports: Hx Diabetes Denies: Hx Anemia Cardiovascular History: Reports: Hx Auto Implanted Cardiovert Defib - pacemaker , Hx Coronary Artery Disease - CHOLESTEROL CONTROL WITH MEDS, Hx Hypercholesterolemia, Hx Hypertension, Hx Pacemaker/ICD - 4/5/17, Other Cardiovascular Problems/Disorders Denies: Hx Congestive Heart Failure GI History: Denies: Hx Jaundice History: Denies: Hx Renal Disease Musculoskeletal History: Reports: Hx Arthritis - BILATERAL KNEES Sensory History: Denies: Hx Cataracts, Hx Contacts or Glasses, Hx Hearing Aid Opthamlomology History: Denies: Hx Cataracts, Hx Contacts or Glasses Neurological History: Reports: Hx Dementia - mild - Surgical History Surgery Procedure, Year, and Place: PACEMAKER, MRI CONTRAINDICATED Hx Anesthesia Reactions: No Infectious Disease History: Denies: Hx of Known/Suspected MRSA, Traveled Outside the [place] in Last 30 Days - Family History Known Family History: Positive: Cardiac Disease, Hypertension Negative: Diabetes - Social History Alcohol Use: None Substance Use Type: Reports: None Hx Tobacco Use: No Smoking Status (MU): Never Smoked Tobacco Review of Systems Negative: Chest Pain Negative: Shortness Of Breath Negative: Abdominal Pain, Vomiting, Nausea All Other Systems Reviewed And Are Negative: Yes Physical Exam - Summary Physical Exam Summary: VITAL SIGNS: Reviewed. GENERAL: Patient is a well developed and nourished female who is lying comfortable in the stretcher. Patient is not in any acute respiratory distress. HEAD AND FACE: No signs of trauma. No ecchymosis, hematomas or skull depressions. No sinus tenderness. EYES: PERRLA, EOMI x 2, No injected conjunctiva, no nystagmus. EARS: Hearing grossly intact. Ear canals and tympanic membranes are within normal limits. MOUTH: Oropharynx within normal limits. NECK: Supple, trachea is midline, no adenopathy, no JVD, no carotid bruit, no c- spine tenderness, neck with full ROM. CHEST: Symmetric, no tenderness at palpation LUNGS: Clear to auscultation bilaterally. No wheezing or crackles. CVS: Regular rate and rhythm, S1 and S2 present, positive ESM 2/6 ABDOMEN: Soft, non-tender. No signs of distention. No rebound no guarding, and no masses palpated. Bowel sounds are normal. EXTREMITIES: FROM in all major joints, no edema, no cyanosis or clubbing. NEURO: Alert and oriented x 3. No acute neurological deficits. Speech is normal and follows commands. SKIN: Dry and warm Triage Information Reviewed: Yes Vital Signs On Initial Exam: Initial Vital Signs Temp 97 F 01/13/17 13:29 Pulse 62 01/13/17 13:29 Resp 20 01/13/17 13:29 BP 161/63 01/13/17 13:29 Pulse Ox 95 01/13/17 13:29 Vital Signs Reviewed: Yes Diagnostics - Vital Signs Vital Signs Temp Pulse Resp BP Pulse Ox 01/13/17 13:33 97.0 F 62 20 161/63 97 01/13/17 13:29 97 F 62 20 161/63 95 - Laboratory Result Diagrams: 01/13/17 13:00 01/13/17 13:00 Lab Statement: Any lab studies that have been ordered have been reviewed, and results considered in the medical decision making process. - CT CTA chest CT Interpretation Completed By: Radiologist - Dissection of the ascending aorta with intimal flap noted. The false lumen appears to be anterior and to the right lateral aspect of the ascending aorta. The dissection does not extend into the innominate artery. 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 - EKG 1416 EKG Interpretation: atrial flutter 62 bpm, TWI in V4 V5 V6 III aVF Re-Evaluation - Re-Evaluation First Eval Re-Evaluation Time: 16:17 Change: Unchanged Comment: Plan for transfer discussed with the patient and daughter. They are agreeable with the plan. She continues to be asymptomatic. Complex Multi-Symp Course/Dx Assessment/Plan: Patient is an 86 year-old female with a history of endocarditis coming to [facility] from Dr. Wallace's office for evaluation of an aortic dissection. She was being seen for a transesophageal echocardiogram, at which time the dissection was revealed. Here in the ED, her vitals are stable and she is asymptomatic. Denies chest pain, shortness of breath, or dizziness. Test results WNL except for mild anemia. INR is 1.51. BNP is 182. The patient continues to be asypmtomatic without any complaints. CTA chest shows findings as read by radiologist: "Dissection of the ascending aorta with intimal flap noted. The false lumen. appears to be anterior and to the right lateral aspect of the ascending aorta. The. dissection does not extend into the innominate artery. There is aneurysmal dilatation of. the ascending aorta measuring up to 5.0 cm." I discussed the case with Dr. Herrmann and he accepted the patient for transfer to his facility for further workup and management. The patient continues to be asymptomatic, A&Ox3. I discussed these findings and the plan to transfer with the patient and her daughter and they understand and agree. - Diagnoses Provider Diagnoses: ascending thoracic aortic dissection - Physician Notifications Discussed Care Of Patient With: Dr. Bojorquez ([facility]) at 1425: does not treat ascending thoracic dissections. Dr. Herrmann ([facility]) at 1445: accepts transfer. Instructed by Provider To: Transfer Admit/Transition Orders Completed By ED Provider: Yes Reason For Transfer: Specialty or service not available [place] [facility] [place] - Discharge Plan Condition: Stable Disposition: TRANS HIGHER LVL OF CARE FAC Referrals: Murtaza Reyez MD [Primary Care Provider] - The documentation as recorded by the Heath wetzel Billy accurately reflects the service I personally performed and the decisions made by me, Chandrakant Cuello MD.
[2017-01-13 17:45] VITALS: BP 186/75
== END 2017-01-13 17:45 | disposition short-term general hospital (02) ==
LOC: ED 13:15
DX: I71.01 Dissection of thoracic aorta (principal); Z86.79 Personal history of other diseases of the circulatory system
CPT/HCPCS: 36415; 80053; 83605; 83735; 83880; 84436; 84443; 84484; 85025; 85610; 85730; 93005; 99285

== ENCOUNTER 2017-02-01 11:32 | Inpatient (IN) | payer MEDICARE ==
[2017-02-01 14:19] LABS: Hemoglobin 10.6 g/dl (12.0-16.0); Mean Corpuscular Hemoglobin 27 pg (27-31); Red Blood Count 3.91 10^6/ul (4.0-5.4); Red Cell Distribution Width 20 % (10.5-15); White Blood Count 8.8 10^3/ul (3.5-10.8)
[2017-02-01 14:22] LABS: Hematocrit 33 % (35-47); Mean Corpuscular HGB Conc 32 g/dl (31-36); Mean Corpuscular Volume 84 fL (80-97); Mean Platelet Volume 10 um3 (7.4-10.4)
[2017-02-01 14:24] LABS: Add Diff/Slide Review? Manual Diff Added; Comments Flag Yes
[2017-02-01 14:25] LABS: Albumin 3.4 g/dL (3.2-5.2); BUN/Creatinine Ratio 13.9 (8-20); Calcium 9.6 mg/dL (8.6-10.3); EGFR African American 88.7 (>60); Globulin 3.2 g/dL (2-4); Potassium 3.8 mmol/L (3.5-5.0); Total Bilirubin 0.7 mg/dL (0.2-1.0); Total Protein 6.6 g/dL (6.4-8.9)
--- NOTE | 2017-02-01 14:26 | RAD ---
HISTORY: Shortness of breath COMPARISONS: December 03, 2016, CT dated January 13, 2017 VIEWS: 2: Frontal and lateral views of the chest. FINDINGS: CARDIOMEDIASTINAL SILHOUETTE: The cardiac silhouette is at the upper limits of normal in size. CAM: The cam are normal. PLEURA: The costophrenic angles are sharp. No pleural abnormalities are noted. LUNG PARENCHYMA: The lungs are clear. ABDOMEN: The upper abdomen is clear. There is no subphrenic gas. BONES AND SOFT TISSUES: No bone or soft tissue abnormalities are noted. OTHER: A left-sided pacemaker is noted IMPRESSION: NO ACTIVE CARDIOPULMONARY DISEASE.
[2017-02-01 14:27] LABS: Troponin I 0.26 ng/mL (<0.04)
[2017-02-01 14:33] LABS: Neutrophil % 89 % (38-83); Reactive Lymph % 2 % (0-6)
[2017-02-01 14:34] LABS: Polychromasia 1+; Spherocytes 1+
[2017-02-01 14:48] LABS: C Reactive Protein 43.19 mg/L (< 5.00)
[2017-02-01] MEDS ORDERED: Iodixanol* (CONTRAST) 320 MG/ML 100 ML SDV IV ONE (15:29)
[2017-02-01] MEDS ORDERED: Acetaminophen TAB* 325 MG PO PRN (15:58)
[2017-02-01] MEDS ORDERED: oxyCODONE/Acetamin 5/325 MG* TAB PO PRN (15:58)
[2017-02-01] MEDS ORDERED: Morphine INJ* 2 MG/ML 1 ML SYRINGE IV PRN (15:58)
--- NOTE | 2017-02-01 16:43 | RAD ---
INDICATION: Aortic dissection follow-up. COMPARISON: Comparison is made with a prior CT angiogram of the chest from January 13, 2017. TECHNIQUE: A CT angiogram of the chest was performed with intravenous following intravenous injection of 100 ml of Visipaque 320 nonionic contrast. Contiguous axial sections were obtained from the lung apices through the lung bases. Images were reconstructed in the coronal and sagittal planes. FINDINGS: There are multiple intraluminal filling defects present within the right upper lobe segmental arteries, right middle lobe segmental artery branches, right interlobar artery and right basilar segmental artery branches. There is also involvement of a left upper lobe segmental artery branch and several left lower lobe basilar segmental artery branches consistent with multiple pulmonary emboli. The right ventricle and right atrium are enlarged compared with the prior study consistent with a right ventricular strain pattern. The heart is moderately enlarged. No pericardial effusion is present. As noted on the prior exam there is a dissection flap present in the ascending thoracic aorta. The ascending aorta measures up to 5.2 cm in transverse dimension which is unchanged. There is also faint visualization of a dissection flap in the descending thoracic aorta which may be separate from the other dissection. These both appear unchanged from the prior study. No significant enlarged mediastinal or hilar lymph nodes are seen. There is a small infiltrate in the left lower lobe which is unchanged and a small left pleural effusion which appears new. No significant focal osseous abnormality is seen. The results of this exam were discussed with the referring clinician. IMPRESSION: 1. MULTIPLE NEW BILATERAL PULMONARY EMBOLI WITH RIGHT VENTRICULAR STRAIN PATTERN. 2. AORTIC DISSECTION INVOLVING THE ASCENDING AND DESCENDING THORACIC AORTA, UNCHANGED.
[2017-02-01] MEDS ORDERED: Heparin DRIP 25,000 UNITS(*) 25,000 UNITS/500 ML BAG IVPB SCH (17:15)
--- NOTE | 2017-02-01 17:39 | ED ---
Saniya Diaz SooYoung, scribed for Chandrakant Cuello MD on 02/01/17 at 1209 . Shortness of Breath - HPI Summary HPI Summary: A 87 y/o F presents to ED with c/o increasing dyspnea over past few days. According to daughter, pt had difficulty this AM getting out of the bed due to SOB and weakness. Called PCP and got an appt, but pt was too weak to get into car. Associated sx: nausea, brief syncopal moment per daughter. Denies vomiting , CP, diarrhea. Recently taken off Coumadin. - History of Current Complaint Chief Complaint: EDShortnessOfBreath Time Seen by Provider: 02/01/17 11:56 Hx Obtained From: Family/Food Service Team Member Onset/Duration: Lasting Days, Still Present Timing: Constant Current Severity: Moderate Dyspnea At: Rest - Allergy/Home Medications Allergies/Adverse Reactions: Allergies Allergy/AdvReac Type Severity Reaction Status Date / Time No Known Allergies Allergy Verified 02/01/17 11:57 Home Medications: Home Medications Diltiazem CD CAP* [Cardizem CD CAP*] 180 mg PO DAILY 02/01/17 [History Confirmed 02/01/17] Metoprolol Succinate XL TAB* [Toprol XL TAB*] 50 mg PO BID 02/01/17 [History Confirmed 02/01/17] PMH/Surg Hx/FS Hx/Imm Hx Previously Healthy: No Endocrine/Hematology History: Reports: Hx Diabetes Denies: Hx Anemia Cardiovascular History: Reports: Hx Auto Implanted Cardiovert Defib - pacemaker , Hx Coronary Artery Disease - CHOLESTEROL CONTROL WITH MEDS, Hx Hypercholesterolemia, Hx Hypertension, Hx Pacemaker/ICD - 4/5/17, Other Cardiovascular Problems/Disorders Denies: Hx Congestive Heart Failure GI History: Denies: Hx Jaundice History: Denies: Hx Renal Disease Musculoskeletal History: Reports: Hx Arthritis - BILATERAL KNEES Sensory History: Denies: Hx Cataracts, Hx Contacts or Glasses, Hx Hearing Aid Opthamlomology History: Denies: Hx Cataracts, Hx Contacts or Glasses Neurological History: Reports: Hx Dementia - mild - Surgical History Surgery Procedure, Year, and Place: PACEMAKER, MRI CONTRAINDICATED Hx Anesthesia Reactions: No Infectious Disease History: No Infectious Disease History: Denies: Hx of Known/Suspected MRSA, Traveled Outside the [place] in Last 30 Days - Family History Known Family History: Positive: Cardiac Disease, Hypertension Negative: Diabetes - Social History Occupation: Retired Lives: Alone Alcohol Use: None Hx Substance Use: No Substance Use Type: Reports: None Hx Tobacco Use: No Smoking Status (MU): Never Smoked Tobacco Review of Systems Negative: Chest Pain Positive: Shortness Of Breath Positive: Nausea. Negative: Vomiting, Diarrhea Positive: Weakness, Syncope - mild/brief All Other Systems Reviewed And Are Negative: Yes Physical Exam - Summary Physical Exam Summary: VITAL SIGNS: Reviewed. GENERAL: Patient is a well-developed and nourished ELDERLY FEMALE who is lying comfortable in the stretcher. Patient is not in any acute respiratory distress. HEAD AND FACE: No signs of trauma. No ecchymosis, hematomas or skull depressions. No sinus tenderness. EYES: PERRLA, EOMI x 2, No injected conjunctiva, no nystagmus. EARS: Hearing grossly intact. Ear canals and tympanic membranes are within normal limits. MOUTH: Oropharynx within normal limits. NECK: Supple, trachea is midline, no adenopathy, no JVD, no carotid bruit, no c- spine tenderness, neck with full ROM. CHEST: Symmetric, no tenderness at palpation LUNGS: Clear to auscultation bilaterally. BILATERAL CRACKLING LEFT MORE THAN RIGHT. CVS: Regular rate and rhythm, S1 and S2 present, 4/6 ESM, POSSIBLE BILAT LE EDEMA. GOOD RADIAL AND FEMORAL PULSES - STRONG AND EQUAL. ABDOMEN: Soft, non-tender. No signs of distention. No rebound, no guarding, and no masses palpated. Bowel sounds are normal. EXTREMITIES: FROM in all major joints, no cyanosis or clubbing. POSSIBLE BILAT LE EDEMA. GOOD RADIAL AND FEMORAL PULSES - STRONG AND EQUAL. NEURO: Alert and oriented x 3. No acute neurological deficits. Speech is normal and follows commands. SKIN: Dry and warm Triage Information Reviewed: Yes Vital Signs On Initial Exam: Initial Vitals Pulse 77 02/01/17 11:45 Vital Signs Reviewed: Yes - [place] Coma Scale Coma Scale Total: 15 Diagnostics - Vital Signs Vital Signs Temp Pulse Resp BP Pulse Ox 02/01/17 11:52 97.5 F 71 30 92/54 100 02/01/17 11:45 77 - Laboratory Lab Results: Lab Results 02/01/17 02/01/17 02/01/17 Range/Units 12:05 12:05 12:05 WBC 8.8 (3.5-10.8) 10^3/ul RBC 3.91 L (4.0-5.4) 10^6/ul Hgb 10.6 L (12.0-16.0) g/dl Hct 33 L (35-47) % MCV 84 (80-97) fL MCH 27 (27-31) pg MCHC 32 (31-36) g/dl RDW 20 H (10.5-15) % Plt Count 282 (150-450) 10^3/ul MPV 10 (7.4-10.4) um3 Absolute Neuts (auto) 7.8 H (1.5-7.7) 10^3/ul Absolute Lymphs (auto) 0.7 L (1.0-4.8) 10^3/ul Absolute Monos (auto) 0.3 (0-0.8) 10^3/ul Absolute Eos (auto) 0 (0-0.6) 10^3/ul Absolute Basos (auto) 0 (0-0.2) 10^3/ul Absolute Nucleated RBC Not Reportable Neutrophils % 89 H (38-83) % Lymphocytes % 6 L (25-47) % Reactive Lymphs % 2 (0-6) % Monocytes % 3 (0-13) % Normal RBC Morphology Not Reportable Polychromasia 1+ Spherocytes 1+ Elliptocytes 2+ INR (Anticoag Therapy) 1.22 H (0.89-1.11) APTT 27.1 (26.0-36.3) seconds Sodium 138 (133-145) mmol/L Potassium 3.8 (3.5-5.0) mmol/L Chloride 103 (101-111) mmol/L Carbon Dioxide 25 (22-32) mmol/L Anion Gap 10 (2-11) mmol/L BUN 11 (6-24) mg/dL Creatinine 0.79 (0.51-0.95) mg/dL Est GFR ( Amer) 88.7 (>60) Est GFR (Non-Af Amer) 69.0 (>60) BUN/Creatinine Ratio 13.9 (8-20) Glucose 135 H (70-100) mg/dL Lactic Acid (0.5-2.0) mmol/L Calcium 9.6 (8.6-10.3) mg/dL Total Bilirubin 0.70 (0.2-1.0) mg/dL AST 24 (13-39) U/L ALT 21 (7-52) U/L Alkaline Phosphatase 131 H (34-104) U/L Total Creatine Kinase 22 (10-223) U/L Troponin I 0.26 H* (<0.04) ng/mL C-Reactive Protein 43.19 H (< 5.00) mg/L B-Natriuretic Peptide ( - 100) pg/mL Total Protein 6.6 (6.4-8.9) g/dL Albumin 3.4 (3.2-5.2) g/dL Globulin 3.2 (2-4) g/dL Albumin/Globulin Ratio 1.1 (1-3) 02/01/17 02/01/17 Range/Units 12:05 14:45 WBC (3.5-10.8) 10^3/ul RBC (4.0-5.4) 10^6/ul Hgb (12.0-16.0) g/dl Hct (35-47) % MCV (80-97) fL MCH (27-31) pg MCHC (31-36) g/dl RDW (10.5-15) % Plt Count (150-450) 10^3/ul MPV (7.4-10.4) um3 Absolute Neuts (auto) (1.5-7.7) 10^3/ul Absolute Lymphs (auto) (1.0-4.8) 10^3/ul Absolute Monos (auto) (0-0.8) 10^3/ul Absolute Eos (auto) (0-0.6) 10^3/ul Absolute Basos (auto) (0-0.2) 10^3/ul Absolute Nucleated RBC Neutrophils % (38-83) % Lymphocytes % (25-47) % Reactive Lymphs % (0-6) % Monocytes % (0-13) % Normal RBC Morphology Polychromasia Spherocytes Elliptocytes INR (Anticoag Therapy) (0.89-1.11) APTT (26.0-36.3) seconds Sodium (133-145) mmol/L Potassium (3.5-5.0) mmol/L Chloride (101-111) mmol/L Carbon Dioxide (22-32) mmol/L Anion Gap (2-11) mmol/L BUN (6-24) mg/dL Creatinine (0.51-0.95) mg/dL Est GFR ( Amer) (>60) Est GFR (Non-Af Amer) (>60) BUN/Creatinine Ratio (8-20) Glucose (70-100) mg/dL Lactic Acid 1.8 (0.5-2.0) mmol/L Calcium (8.6-10.3) mg/dL Total Bilirubin (0.2-1.0) mg/dL AST (13-39) U/L ALT (7-52) U/L Alkaline Phosphatase (34-104) U/L Total Creatine Kinase (10-223) U/L Troponin I (<0.04) ng/mL C-Reactive Protein (< 5.00) mg/L B-Natriuretic Peptide 555 H ( - 100) pg/mL Total Protein (6.4-8.9) g/dL Albumin (3.2-5.2) g/dL Globulin (2-4) g/dL Albumin/Globulin Ratio (1-3) Result Diagrams: 02/01/17 12:05 02/01/17 12:05 Lab Statement: Any lab studies that have been ordered have been reviewed, and results considered in the medical decision making process. - Radiology CXR Xray Interpretation: No Acute Changes - IMPRESSION: No active cardiopulmonary dz. Radiology Interpretation Completed By: Radiologist - EKG 1 EKG Rhythm: Atrial Fibrillation - 75 bpm Course/Dx - Course Assessment/Plan: A 87 y/o F presents to ED with c/o increasing dyspnea over past few days. According to daughter, pt had difficulty this AM getting out of the bed due to SOB and weakness. Called PCP and got an appt, but pt was too weak to get into car. Associated sx: nausea, brief syncopal moment per daughter. Denies vomiting, CP, diarrhea. Recently taken off Coumadin. In the ED course an IV access was obtained. The only abnormal blood test result are H/ H which shows a slight anemia, glucose 135, troponin 0.26, CRP 43, bnp 555. EKG shows a ventricular paced EKG. CXR impression: No acute pathology. At his time the patient continues to be stable. She has Hx of Thoracic aneurysm type A. Patient has been seen by a vascular surgeon at [facility]. It is reported that the aneurysm is inoperable due to her chronic health issues. Patient and patients daughter aware. Since patient has an elevated troponin, I discussed the case with Dr. Reyez who recommends for the patient to be admitted to the hospitalist services. I discussed the case with Dr. Blackmon who accepted the patient for admission. - Diagnoses Differential Diagnosis/HQI/PQRI: Positive: Asthma, Bronchitis, CHF, [place] Provider Diagnoses: Elevated troponin, CHF (congestive heart failure) - Physician Notifications Discussed Care of Patient With: Murtaza Reyez - PCP Time Discussed With Above Provider: 15:03 Instructed by Provider To: Other - recommends admitting pt Discharge - Discharge Plan Condition: Critical Disposition: ADMITTED TO [facility] Consult Consult: 1505: Dr. Blackmon, hospitalist Will admit. The documentation as recorded by the Saniya wetzel SooYoung accurately reflects the service I personally performed and the decisions made by me, Chandrakant Cuello MD.
[2017-02-01] MEDS ORDERED: Heparin VIAL(*) 5000 UNITS/ML VIAL (FIVE THOUSAND) IV SCH (18:00)
--- NOTE | 2017-02-01 19:14 | HP ---
CC: Dr. Reyez; Dr. Wallace; Dr. Tapia * HISTORY AND PHYSICAL: DATE OF ADMISSION: 02/01/17 PRIMARY CARE PROVIDER: Dr. Reyez. CHIEF COMPLAINT: Shortness of breath. HISTORY OF PRESENT ILLNESS: Arlene Lopez is an 87-year-old female who has history of chronic atrial fibrillation, not anticoagulated currently due to recent diagnosis of ascending aortic aneurysm. 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 At that point, Dr. Wallace noted during SHEFALI procedure that she had an ascending aortic dissection and transferred the patient to our emergency department from where she went to [facility] for further evaluation. Although the medical records from [facility] are still pending, the patient stated that "nothing was done." The patient was told that she is not an operative candidate. It was mentioned and advised for the patient to keep her blood pressure under control. She had been doing fine at home until 3 days ago when she suddenly developed shortness of breath. She stated that her dyspnea on exertion is very severe and she had problems walking to the bathroom and back. The dyspnea was not positional. She denied chest pain. She stated that her weight had been stable. She noted maybe slight leg edema on the right. A CT angiogram of the chest noted to have stable aortic dissection comparing with December 2016, but new bilateral pulmonary emboli. The patient is going to be admitted to the intensive care unit. PAST MEDICAL HISTORY: 1. History of ascending aortic dissection as mentioned above. The patient's aorta was measured at over 5 cm. 2. History of atrial fibrillation, chronic. 3. Hypertension. 4. Hypothyroidism. 5. Anxiety. 6. Hyperlipidemia. 7. Diverticulitis history. 8. Arthritis. 9. Question of diabetes, although the patient is not on medications for diabetes. 10. History of pacemaker placement for sick sinus syndrome. 11. Cataract surgery bilaterally. 12. History of . 13. Status post temporal artery biopsy in the past. 14. 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 MEDICATIONS AT HOME: Include: 1. Zocor 20 mg daily. 2. Multivitamin 1 tablet daily. 3. Levothyroxine 112 mcg daily. 4. Furosemide 20 mg daily. 5. [place]-3 fatty acids 1000 mg daily. 6. Colace 100 mg b.i.d. 7. Vitamin D3 1000 units daily. 8. Toprol-XL 50 mg b.i.d. 9. Calcium carbonate and vitamin D 1 tablet daily. 10. Diltiazem CD 180 mg daily. ALLERGIES: No known drug allergies. FAMILY HISTORY: Positive for mother with CVA and father with history of heart disease. SOCIAL HISTORY: The patient denies any tobacco, alcohol, or drug use. Her surrogate decision making person is her son, Horacio Lopez. REVIEW OF SYSTEMS: Please see history of present illness. All the remaining 14 systems were reviewed with the patient and were otherwise negative. PHYSICAL EXAMINATION GENERAL: The patient is a pleasant 87-year-old white female who is in no acute distress. Alert, awake, and oriented x3. VITAL SIGNS: Blood pressure of 145/96, heart rate of 73, and the rhythm on telemetry is intermittently paced atrial flutter. Respiratory rate 23, oxygen saturation 95% on 2 L of oxygen nasal cannula, temperature 98.4. HEENT: Head atraumatic, normocephalic. Eyes: Pupils equal, reactive to light and accommodation. Oropharynx clear. Mucosa moist. NECK: Supple. No JVD, no bruit bilaterally. RESPIRATORY: Clear to auscultation bilaterally. CARDIOVASCULAR: Irregular rhythm with 2/6 systolic ejection murmur noted on auscultation of right upper sternal border. ABDOMEN: Soft, nontender. Bowel sounds present in all 4 quadrants. EXTREMITIES: There is trace left leg edema and +1 right leg edema. Pulses are thready, but palpable bilaterally. There is no clubbing or cyanosis. SKIN: On evaluation of the skin, no ecchymotic areas or rashes noted. NEUROLOGIC EVALUATION: Speech clear. Cranial nerves II through XII grossly intact. Motor strength is 5/5 bilaterally. LABORATORY DATA AND STUDIES: White blood cell count of 8.8, hemoglobin 10.6, hematocrit of 33, and platelets of 282,000. INR of 1.22. PTT of 27. Sodium was 138, potassium 3.8, chloride 103, carbon dioxide 25, BUN 11, creatinine 0.79. Liver function tests were unremarkable. Troponin was 0.2. Please also note that actually apart from other unremarkable liver function tests, the patient's alkaline phosphatase is slightly elevated at 131. The patient's brain natriuretic peptide was 555. Lactic acid 1.8. CT angiogram of the chest, impression: "Multiple new bilateral pulmonary emboli with right ventricular strain pattern. Aortic dissection involving the ascending and descending aorta unchanged." The patient's EKG showed a paced rhythm with a heart rate of 75 beats per minute , underlying atrial flutter. ASSESSMENT AND PLAN: An 87-year-old female with history of ascending thoracic aortic dissection diagnosed in December 2016, who now presents with bilateral pulmonary embolisms. 1. In regards to the patient's acute pulmonary emboli, I had a long discussion with the patient as well as the patient's primary care provider, Dr. Reyez. The patient's dissection is now chronic and does not appear to have progressed since last month. She does have bilateral pulmonary emboli and is hypoxemic without oxygen. She is at risk of worsening of her respiratory status and her quality of life would definitely decrease. She could also from worsening of pulmonary emboli if those are not treated with anticoagulation. The risk of anticoagulation is such that if her aortic dissection progresses or her aortic aneurysm ruptures, she would with anticoagulation, but she most likely would without it if it occurred. The anticoagulation by itself does not increase the risk of rupturing of her thoracic aorta and does not worsen the dissection by itself. At this point, I discussed with the patient. The patient does agree that her quality of life right now with the dyspnea is significantly decreased. At this point, the patient agrees to anticoagulation. She is going to be placed in the intensive care unit and heparinized on a drip. 2. In regards to the patient's history of atrial flutter, this is rate controlled with Cardizem and metoprolol was going to be continued. 3. For DVT prophylaxis, the patient is going to be placed on heparin drip as above. I believe that her right leg that is swollen is probably the source of the pulmonary embolism. 4. We also had a long discussion in regards to the patient's code status. The patient never signed do not resuscitate despite the knowledge that she has an inoperable aortic dissection. She stated that she would not like to be resuscitated and placed on machines, but she could try it if her family requested that. The patient's daughter present in the room would prefer for the patient to be do not resuscitate due to the trauma that the patient would have to go through during resuscitation with basically no chance of survival in this patient with aortic dissection. Nevertheless, the patient herself is not at this point interested in signing any documentation as she is going to be full code. I will ask Palliative Care to see the patient in consultation in the morning to discuss code status. TIME SPENT: Approximately 100 minutes were spent on the patient's admission. Approximately 55 minutes were spent on counseling and coordination of care face- to- face with the patient. [id number]/[facility] #: [id number] MTDD
[2017-02-01] MEDS: Atorvastatin* 10 MG TAB PO SCH (21:26)
[2017-02-01] MEDS: Docusate CAP* 100 MG PO SCH (21:26)
[2017-02-01] MEDS: Metoprolol Succinate XL TAB* 50 MG PO SCH (21:27)
[2017-02-02 06:27] LABS: BUN/Creatinine Ratio 16.7 (8-20); Calcium 8.9 mg/dL (8.6-10.3); EGFR African American 98.8 (>60); EGFR Non-African American 76.8 (>60); Hematocrit 29 % (35-47); Hemoglobin 9.5 g/dl (12.0-16.0); Mean Corpuscular HGB Conc 33 g/dl (31-36); Mean Corpuscular Hemoglobin 27 pg (27-31); Mean Corpuscular Volume 83 fL (80-97); Mean Platelet Volume 10 um3 (7.4-10.4); Potassium 3.2 mmol/L (3.5-5.0); Red Blood Count 3.47 10^6/ul (4.0-5.4); Red Cell Distribution Width 20 % (10.5-15); White Blood Count 9.6 10^3/ul (3.5-10.8)
[2017-02-02] MEDS: Levothyroxine TAB* 112 MCG TAB PO SCH (06:34)
--- NOTE | 2017-02-02 08:08 | PN ---
Subjective - Subjective Reason for Note: Progress Note History: I have reviewed the history of Arlene Arshad's presentation with the patient and Dr. Blackmon's history and physical. She previously was taking warfarin for atrial fibrillation, this was discontinued owing to diagnosis of an aortic dissection. She presented with sudden shortness of breath. A CTA demonstrates 1. Multiple pulmonary emboli 2. No change in the ascending/descending aortic dissection. This morning her breathing is improved. She has no chest pain, nausea, vomiting , dyspnea at rest, palpitations or diaphoresis. She is not light headed. She feels comfortable Active Problems: Active Problems Ascending aortic dissection (Acute) I71.01 Congestive heart failure of unknown etiology (Acute) I50.9 DNR (do not resuscitate) (Acute) Elevated troponin I measurement (Acute) R74.8 Pulmonary embolism (Acute) I26.99 Anticoagulation goal of INR 2 to 3 (Chronic) Z51.81, Z79.01 Aortic stenosis (Chronic) I35.0 Atrial fibrillation (Chronic) I48.91 Cardiac pacemaker (Chronic) Z95.0 Diverticulosis (Chronic) K57.90 Essential (primary) hypertension (Chronic) I10 Gait difficulty (Chronic) R26.9 Hyperlipidemia (Chronic) E78.5 Mitral annular calcification (Chronic) I05.9 Mitral regurgitation (Chronic) Polymyalgia rheumatica (Chronic) M35.3 Primary hypothyroidism (Chronic) E03.9 Rectal prolapse (Chronic) K62.3 Type 2 diabetes mellitus (Chronic) Uterine prolapse (Chronic) N81.4 Weakness of both legs (Chronic) R29.898 Current Medications: Current Medications Acetaminophen (Tylenol Tab*) 650 mg PO Q4H PRN PRN Reason: FEVER/PAIN Last Admin: 02/01/17 21:27 Dose: 650 mg Atorvastatin Calcium (Lipitor*) 10 mg PO BEDTIME [facility] Last Admin: 02/01/17 21:26 Dose: Not Given Diltiazem HCl (Cardizem Cd Cap*) 180 mg PO DAILY [facility] Docusate Sodium (Colace Cap*) 100 mg PO BID DENISE Last Admin: 02/01/17 21:26 Dose: 100 mg Furosemide (Lasix Tab*) 20 mg PO DAILY [facility] Heparin Sodium (Porcine) (Heparin Vial(*)) 0 units IV .PER PROTOCOL DENISE PRN Reason: Protocol Heparin Sodium/Dextrose (Heparin Drip 25,000 Units(*)) 25,000 units in 500 mls @ 0 mls/hr IVPB .PER RATE DENISE; Per Protocol PRN Reason: Protocol Last Admin: 02/01/17 17:43 Dose: 24 mls/hr Levothyroxine Sodium (Synthroid Tab*) 112 mcg PO 0600 DENISE Last Admin: 02/02/17 06:34 Dose: 112 mcg Metoprolol Succinate (Toprol Xl Tab*) 50 mg PO BID [facility] Last Admin: 02/01/17 21:27 Dose: 50 mg Morphine Sulfate (Morphine Inj (Syringe)*) 1 mg IV Q4H PRN PRN Reason: PAIN Oxycodone/Acetaminophen (Percocet 5/325 Tab*) 1 tab PO Q4H PRN PRN Reason: Pain Home Medications: Home Medications Medication Instructions Recorded Confirmed Type Furosemide TAB* [Lasix TAB*] 20 mg PO DAILY 04/07/13 02/01/17 History Levothyroxine TAB* [Synthorid 112 112 mcg PO QAM 04/07/13 02/01/17 History MCG TAB*] Calcium Carbonate-Cholecalcife 1 tab PO DAILY 11/30/16 02/01/17 History [Calcium 600+D3 600-400 mg-Unit] Cholecalciferol TAB* [Vitamin D 1,000 unit PO DAILY 11/30/16 02/01/17 History TAB*] Docusate CAP* [Colace Cap*] 100 mg PO BID 11/30/16 02/01/17 History Multivitamins/Minerals TAB* 1 tab PO DAILY 11/30/16 02/01/17 History [Theragran/minerals TAB*] [place]-3 Fatty Acids (Nf) [Fish Oil 1,000 mg PO DAILY 11/30/16 02/01/17 History (NF)] Simvastatin TAB(NF) [Zocor 20 MG 20 mg PO BEDTIME 11/30/16 02/01/17 History (NF)] Acetaminophen TAB* [Tylenol TAB*] 650 mg PO Q4H PRN #90 tab 12/06/16 02/01/17 Rx Diltiazem CD CAP* [Cardizem CD 180 mg PO DAILY 02/01/17 02/01/17 History CAP*] Metoprolol Succinate XL TAB* 50 mg PO BID 02/01/17 02/01/17 History [Toprol XL TAB*] Allergies: Allergies Allergy/AdvReac Type Severity Reaction Status Date / Time No Known Allergies Allergy Verified 02/01/17 11:57 Objective - Vital Signs Vital Signs: Vital Signs 02/01/17 02/01/17 02/01/17 16:30 17:13 17:25 Temperature 98.4 F Pulse Rate 71 73 39 Respiratory 24 23 Rate Blood Pressure 146/78 145/96 (mmHg) O2 Sat by Pulse 100 95 90 Oximetry 02/01/17 02/01/17 02/01/17 17:26 17:30 17:49 Temperature Pulse Rate 72 72 Respiratory 28 24 22 Rate Blood Pressure 145/96 137/77 (mmHg) O2 Sat by Pulse 95 95 Oximetry 02/01/17 02/01/17 02/01/17 18:00 19:00 19:05 Temperature Pulse Rate 73 Respiratory 22 26 25 Rate Blood Pressure 152/82 158/67 (mmHg) O2 Sat by Pulse 91 Oximetry 02/01/17 02/01/17 02/01/17 19:38 20:00 21:00 Temperature 96.7 F Pulse Rate 69 89 Respiratory 28 37 Rate Blood Pressure 153/133 166/60 (mmHg) O2 Sat by Pulse 96 89 Oximetry 02/01/17 02/01/17 02/01/17 22:00 23:00 23:01 Temperature Pulse Rate 67 72 72 Respiratory 32 25 25 Rate Blood Pressure 140/69 132/67 (mmHg) O2 Sat by Pulse 97 97 97 Oximetry 02/01/17 02/01/17 02/02/17 23:22 23:57 00:00 Temperature 98.1 F Pulse Rate 71 Respiratory 26 20 Rate Blood Pressure (mmHg) O2 Sat by Pulse 97 Oximetry 02/02/17 02/02/17 02/02/17 00:01 00:10 00:57 Temperature Pulse Rate 72 72 Respiratory 21 22 19 Rate Blood Pressure 135/64 (mmHg) O2 Sat by Pulse 97 97 Oximetry 02/02/17 02/02/17 02/02/17 01:00 02:00 02:28 Temperature Pulse Rate 72 72 Respiratory 19 19 Rate Blood Pressure 137/75 140/76 142/73 (mmHg) O2 Sat by Pulse 99 99 Oximetry 02/02/17 02/02/17 02/02/17 03:00 03:29 04:00 Temperature 97.2 F Pulse Rate 73 73 Respiratory 20 20 20 Rate Blood Pressure 154/135 (mmHg) O2 Sat by Pulse 100 100 Oximetry 02/02/17 02/02/17 02/02/17 04:09 04:41 05:00 Temperature Pulse Rate 72 72 Respiratory 18 20 25 Rate Blood Pressure 138/62 141/61 (mmHg) O2 Sat by Pulse 99 97 Oximetry 02/02/17 02/02/17 02/02/17 05:33 06:00 06:33 Temperature Pulse Rate 72 Respiratory 25 24 21 Rate Blood Pressure 124/71 (mmHg) O2 Sat by Pulse 97 Oximetry 02/02/17 02/02/17 07:00 07:55 Temperature 97.4 F Pulse Rate 81 Respiratory 24 Rate Blood Pressure 137/67 (mmHg) O2 Sat by Pulse 99 Oximetry - Intake and Output Intake and Output: Intake & Output 01/30/17 01/31/17 02/01/17 02/02/17 11:59 11:59 11:59 11:59 Intake Total 814 Output Total 500 Balance 314 Weight 149 lb 4.047 oz Intake: Medicated IV 234 HEPARIN 234 Oral 580 Output: Colbert 500 ADLs: Meal Record Start: 02/01/17 17: 13 Freq: 09,13,18 Status: Active Created 02/01/17 17:13 [id number] (Rec: 02/01/17 17:13 [id number] [id number]) Document 02/01/17 19:05 [id number] (Rec: 02/01/17 19:05 [id number] [id number]) Intake and Output Start: 02/01/17 17: 13 Freq: 06,14,22 Status: Active Created 02/01/17 17:13 [id number] (Rec: 02/01/17 17:13 [id number] ICU-C15) Document 02/01/17 22:00 [id number] (Rec: 02/01/17 23:33 [id number] ICU-C16) Document 02/02/17 05:21 [id number] (Rec: 02/02/17 05:21 [id number] ICU-C16) - Physical Exam General Physical Exam Comment: She is in no acute distress and is hemodynamically stable. She is warm and well perfused. She is alert, oriented and understands her situation General: No Cyanosis, No Anemia, No Jaundice, No Clubbing Lungs and Chest: Yes: Chest Expansion Full, Chest Expansion Symetrica, Percussion Note Resonant, Vessicular Breath Sounds. No: Crackles, Wheezes, Respiratory Distress, Use of Accessory Muscles Heart Rate and Rhythm: Regular JVP: Elevated Additional Cardiovascular: Yes: Normal Heart Sounds, Heart Murmur - aortic systolic, Pedal Edema - trace. No: Carotid Bruits Abdominal Exam: Yes: Soft, Bowel Sounds Present. No: Distention, Abdominal Mass , Hepatomegaly, Abdominal Tenderness - Extremities Cranial Nerves II-XII Intact: Yes Limbs: Normal Power, Normal Tone Results - Results Lab Results: Laboratory Results - last 24 hr 02/01/17 02/01/17 02/02/17 17:40 20:25 02:25 WBC RBC Hgb Hct MCV MCH MCHC RDW Plt Count MPV Neut % (Auto) Lymph % (Auto) Lynn % (Auto) Eos % (Auto) Baso % (Auto) Absolute Neuts (auto) Absolute Lymphs (auto) Absolute Monos (auto) Absolute Eos (auto) Absolute Basos (auto) Absolute Nucleated RBC Nucleated RBC % APTT > 212.0 H* Sodium Potassium Chloride Carbon Dioxide Anion Gap BUN Creatinine Est GFR ( Amer) Est GFR (Non-Af Amer) BUN/Creatinine Ratio Glucose Calcium Troponin I 0.43 H* 1.05 H* 02/02/17 02/02/17 02/02/17 02:25 05:40 05:40 WBC 9.6 RBC 3.47 L Hgb 9.5 L Hct 29 L MCV 83 MCH 27 MCHC 33 RDW 20 H Plt Count 251 MPV 10 Neut % (Auto) 84.4 H Lymph % (Auto) 7.7 L Lynn % (Auto) 4.1 Eos % (Auto) 3.0 Baso % (Auto) 0.8 Absolute Neuts (auto) 8.1 H Absolute Lymphs (auto) 0.7 L Absolute Monos (auto) 0.4 Absolute Eos (auto) 0.3 Absolute Basos (auto) 0.1 Absolute Nucleated RBC 0.01 Nucleated RBC % 0.1 APTT Sodium 138 Potassium 3.2 L Chloride 104 Carbon Dioxide 28 Anion Gap 6 BUN 12 Creatinine 0.72 Est GFR ( Amer) 98.8 Est GFR (Non-Af Amer) 76.8 BUN/Creatinine Ratio 16.7 Glucose 110 H Calcium 8.9 Troponin I 1.98 H* Radiology Results: Patient Name: ARLENE ARSHAD Medical Record#: [id number] Ordering Physician: Justine Blackmon MD Acct.#: [id number] : 1930 Age: 87 Sex: F Location: [address] [place] [address]/TELEMETRY Exam Date: 02/01/171516 ADM Status: ADM IN Order Information: CTA CHEST Accession Number: [id number] CPT: 37629 INDICATION: Aortic dissection follow-up. COMPARISON: Comparison is made with a prior CT angiogram of the chest from January 13, 2017. TECHNIQUE: A CT angiogram of the chest was performed with intravenous following intravenous injection of 100 ml of Visipaque 320 nonionic contrast. Contiguous axial sections were obtained from the lung apices through the lung bases. Images were reconstructed in the coronal and sagittal planes. FINDINGS: There are multiple intraluminal filling defects present within the right upper lobe segmental arteries, right middle lobe segmental artery branches, right interlobar artery and right basilar segmental artery branches. There is also involvement of a left upper lobe segmental artery branch and several left lower lobe basilar segmental artery branches consistent with multiple pulmonary emboli. The right ventricle and right atrium are enlarged compared with the prior study consistent with a right ventricular strain pattern. The heart is moderately enlarged. No pericardial effusion is present. As noted on the prior exam there is a dissection flap present in the ascending thoracic aorta. The ascending aorta measures up to 5.2 cm in transverse dimension which is unchanged. There is also faint visualization of a dissection flap in the descending thoracic aorta which may be separate from the other dissection. These both appear unchanged from the prior study. No significant enlarged mediastinal or hilar lymph nodes are seen. There is a small infiltrate in the left lower lobe which is unchanged and a small left pleural effusion which appears new. No significant focal osseous abnormality is seen. The results of this exam were discussed with the referring clinician. IMPRESSION: 1. MULTIPLE NEW BILATERAL PULMONARY EMBOLI WITH RIGHT VENTRICULAR STRAIN PATTERN. 2. AORTIC DISSECTION INVOLVING THE ASCENDING AND DESCENDING THORACIC AORTA, UNCHANGED. <Electronically signed by Thierno Quispe MD in OV> 02/01/17 1639 Dictated By: Thierno Quispe MD Dictated Date/Time: 02/01/17 1639 Transcribed Date/Time: 02/01/17 1618 Copy to: CC:Murtaza Reyez MD; Justine Blackmon MD 1 of 2 Assessment - Problem List Assessment: Patient Problems Ascending aortic dissection (Acute) Congestive heart failure of unknown etiology (Acute) DNR (do not resuscitate) (Acute) Elevated troponin I measurement (Acute) Pulmonary embolism (Acute) Anticoagulation goal of INR 2 to 3 (Chronic) Aortic stenosis (Chronic) Atrial fibrillation (Chronic) Cardiac pacemaker (Chronic) Diverticulosis (Chronic) Essential (primary) hypertension (Chronic) Gait difficulty (Chronic) Hyperlipidemia (Chronic) Mitral annular calcification (Chronic) Mitral regurgitation (Chronic) Polymyalgia rheumatica (Chronic) Primary hypothyroidism (Chronic) Rectal prolapse (Chronic) Type 2 diabetes mellitus (Chronic) Uterine prolapse (Chronic) Weakness of both legs (Chronic) Prolonged Q-T interval on ECG (Chronic 12/16/14) Plan: Pulmonary embolism (Acute) This is the acute reason for her presentation - it has caused dyspnea, an elevated troponin I level and BNP. She is feeling improved this morning after heparinization. I have changed her to lovenox subcutaneously and warfarin at loading doses. I discussed with the patient the risk of not anticoagulating her. Ascending aortic dissection (Acute) I discussed with the patient that the anticoagulation would not affect her dissection. However, this remains a risk and she has chosen against surgical intervention Congestive heart failure of unknown etiology (Acute) She will maintain her oral diuretic therapy DNR (do not resuscitate) (Acute) I had a discussion with the patient witnessed by her grand-daughter. She understands that if she has an acute problem with her dissection that leads to a cardiac arrest, this would not be a retrievable situation. Also, there is a low probability of recovery from CPR in view of her comorbidities if she has a cardiac arrest for other reasons. She chose to become DNR and the MOLST form was witnessed by her grand-daughter. Elevated troponin I measurement (Acute) This relates to her pulmonary embolism Anticoagulation goal of INR 2 to 3 (Chronic) I have started warfarin - we could choose another anticoagulant, but they have a slightly increased bleeding risk Aortic stenosis (Chronic) ongoing Atrial fibrillation (Chronic) ongoing Cardiac pacemaker (Chronic) functional Diverticulosis (Chronic) secondary diagnosis Essential (primary) hypertension (Chronic) controlled Gait difficulty (Chronic)Weakness of both legs (Chronic) ongoing issue - for PT Hyperlipidemia (Chronic) secondary diagnosis Mitral annular calcification (Chronic) secondary diagnosis Mitral regurgitation (Chronic) secondary diagnosis Polymyalgia rheumatica (Chronic) secondary diagnosis = inactive Primary hypothyroidism (Chronic) secondary diagnosis Rectal prolapse (Chronic) secondary diagnosis Type 2 diabetes mellitus (Chronic) controlled Uterine prolapse (Chronic) secondary diagnosis I discussed her management with the patient and her grand-daughter. 1. Stop telemetry 2. transfer to general medical bed 3. PT/mobilize If we can get her back to baseline - discharge home. If not, for [facility].
[2017-02-02] MEDS: Metoprolol Succinate XL TAB* 50 MG PO SCH ×2 (10:12→21:12)
[2017-02-02] MEDS: Furosemide TAB* 20 MG PO SCH (10:12)
[2017-02-02] MEDS: Docusate CAP* 100 MG PO SCH ×2 (10:12→21:11)
[2017-02-02] MEDS: Diltiazem CD CAP* 180 MG PO SCH (10:12)
[2017-02-02] MEDS ORDERED: LORazepam TAB(*) 0.5 MG PO PRN ×2 (15:25→15:35)
[2017-02-02] MEDS: Warfarin TAB(*) 7.5 MG PO SCH (16:11)
--- NOTE | 2017-02-02 17:12 | CONS ---
CC: Murtaza Reyez MD; Justine Blackmon MD * PALLIATIVE CARE CONSULTATION: DATE OF CONSULT: 02/02/17 PRIMARY CARE PHYSICIAN: Murtaza Reyez MD REFERRING PHYSICIAN: Justine Blackmon MD. HOSPITAL COURSE: This is an 87-year-old female with a past medical history of ascending aortic dissection, who presented to the emergency room on the with shortness of breath. The patient prior to this admission was noted to have a dissecting aortic aneurysm when she came to the emergency room on January 13. She was transferred to [facility] from the emergency room at that time. At that time, they did not feel that she was a surgical candidate. They stopped her Coumadin for which she was on for her atrial fibrillation and recommended blood pressure control. The patient was at home for about 3 days when she started developing sudden onset of shortness of breath and dyspnea on exertion. She was found to have multiple new bilateral pulmonary emboli with right ventricular strain. Her aortic dissection involving the ascending and descending aorta remain unchanged. On admission, the patient was admitted to the ICU and she was started on a heparin drip and Dr. Reyez took over service and a palliative care consultation was placed. On admission, the patient had requested to be a full code. Dr. Reyez discussed the MOLST form with her and she was a DNR. The second page for DNI was not filled out. On my encounter, the patient is complaining of shortness of breath, some anxiety, and dyspnea on exertion. Her daughter Keerthi is at the bedside and is concerned about significant decline in her health with the new diagnosis of her pulmonary emboli. She had been home for about 3 weeks from the long-term rehab when she was diagnosed for endocarditis back in November. The patient had noticed increase in swelling in both her legs. She also was complaining of pain in both her feet this morning. She has had a decrease in her appetite and has had some weight loss as well. She denies any pain at this time. Otherwise, remainder of review of systems is negative. I did review the MOLST form regarding her intubation and the patient is requesting to be a do not intubate as well. PAST MEDICAL HISTORY: 1. 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 Aorta measuring up to 2 cm in dimension. 2. History of PFO. 3. Atrial fibrillation. 4. Hypertension. 5. Hypothyroidism. 6. Anxiety. 7. Hyperlipidemia. 8. History of diverticulitis. 9. History of arthritis. 10. History of pacemaker placement for sick sinus syndrome. 11. History of cataract surgery. 12. History of . 13. History of temporal artery biopsy in the past. 14. 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 INPATIENT MEDICATIONS: 1. Tylenol 650 mg every 4 hours as needed. 2. Albuterol/ipratropium one neb q. 4 hours as needed. 3. Atorvastatin 10 mg at bedtime. 4. Diltiazem CD 180 mg p.o. daily. 5. Colace 100 mg p.o. b.i.d. 6. Lasix 20 mg daily. 7. Levothyroxine 112 mcg p.o. daily. 8. Metoprolol 50 mg p.o. b.i.d. 9. Morphine 1 mg IV q. 4 hours as needed. 10. Warfarin 7.5 mg p.o. daily. 11. Oxycodone/acetaminophen one tab p.o. q. 4 hours as needed. ALLERGIES: No known drug allergies. FAMILY HISTORY: Mother with CVA and father with heart disease. SOCIAL HISTORY: The patient was living at home for the past 3 weeks, prior to that she was at [facility]. Her daughter Keerthi who is one of her healthcare proxies lives across the street from her and helps with meals and laundry. She has four children who live in the area. CODE STATUS: The patient is DNR and confirms on my encounter that she would like to be a DNI as well. No history of tobacco, alcohol or illicit drug use. It is mentioned her healthcare proxy is her daughter Keerthi and Ed her son. REVIEW OF SYSTEMS: As mentioned in the HPI. PHYSICAL EXAM: Vital Signs: Temperature 97.8, pulse rate 74, respiratory rate 26, oxygen saturation 96% on 2 L, blood pressure 109/59 General: Frail elderly female with conversational dyspnea and tachypnea. Head is normocephalic. Pupils are equal and reactive. Anicteric. Oropharynx: Mucous membranes are moist. Neck is supple. No lymphadenopathy. Cardiac: Irregularly irregular rate and rhythm with soft systolic murmur heard throughout. Respiratory: Diminished breath sounds. No wheezes, rhonchi or rales. As noted , tachypnea. Abdomen: Soft, nontender, nondistended. Extremities: +1 pretibial edema. Neurologic: Alert and oriented x3. No focal neurologic deficits. Generalized diffuse weakness. DIAGNOSTIC STUDIES/LAB DATA: White count 9.6, hemoglobin 9.5, hematocrit 29, platelets 251. INR is 1.25. Sodium 138, potassium 3.2, chloride 104, bicarb 28 , BUN 12, creatinine 0.72. Troponin peak of 1.98. RADIOGRAPHIC DATA: Chest CTA shows multiple new bilateral pulmonary emboli with right ventricular strain pattern. Aortic dissection involving the ascending and descending thoracic aorta unchanged. ASSESSMENT: This is an 87-year-old female with a recent diagnosis of ascending and descending thoracic aortic dissection, now presents with shortness of breath found to have multiple pulmonary emboli. Based on these diagnosis, the patient is eligible for hospice. She has dyspnea at rest and she is tachypneic and has conversational dyspnea and it seems that there is anxiety playing a component to this as well. The family is not ready to commit the hospice at this time but they would like to get her more comfortable with her anxiety and breathing. I discussed with Dr. Reyez regarding starting on low dose morphine and Ativan. He agreed to starting her on Ativan and see how she does. He did not want to start morphine at this time. I also recommended that the family speak with each other to determine if she does decide to do hospice if they are able to take care of her at home with hospice as I do and this is what they would want for her. They are going to either follow up with Dr. Reyez. I agreed to follow up with them as well if necessary. Thank you for this consultation. I will follow along with you. PATIENT TIME: Greater than 90 minutes was spent doing the consultation, more than half the time was spent in direct patient contact. [id number]/[facility] #: [id number] GURINDER
[2017-02-02] MEDS: Atorvastatin* 10 MG TAB PO SCH (21:14)
[2017-02-03] MEDS: Levothyroxine TAB* 112 MCG TAB PO SCH (06:03)
[2017-02-03 07:48] LABS: Hematocrit 29 % (35-47); Hemoglobin 9.8 g/dl (12.0-16.0); Mean Corpuscular HGB Conc 34 g/dl (31-36); Mean Corpuscular Hemoglobin 28 pg (27-31); Mean Corpuscular Volume 83 fL (80-97); Mean Platelet Volume 10 um3 (7.4-10.4); Red Blood Count 3.56 10^6/ul (4.0-5.4); Red Cell Distribution Width 20 % (10.5-15); White Blood Count 9.7 10^3/ul (3.5-10.8)
[2017-02-03] MEDS ORDERED: Morphine INJ* 2 MG/ML 1 ML SYRINGE ONE (08:53)
[2017-02-03] MEDS: Metoprolol Succinate XL TAB* 50 MG PO SCH ×2 (09:50→23:06)
[2017-02-03] MEDS: Docusate CAP* 100 MG PO SCH ×2 (09:50→23:06)
[2017-02-03] MEDS: Furosemide TAB* 20 MG PO SCH (09:50)
[2017-02-03] MEDS: Diltiazem CD CAP* 180 MG PO SCH (09:51)
[2017-02-03] MEDS ORDERED: Morphine INJ* 4 MG/ML 1 ML SYRINGE IV PRN (10:28)
[2017-02-03] MEDS ORDERED: Morphine INJ* 2 MG/ML 1 ML SYRINGE IV ONE (11:00)
[2017-02-03] MEDS: Enoxaparin(*) 80 MG/0.8 ML SYR SUBCUT SCH ×2 (11:13→23:07)
[2017-02-03] MEDS: Warfarin TAB(*) 7.5 MG PO SCH (16:46)
[2017-02-03] MEDS: Morphine INJ* 2 MG/ML 1 ML SYRINGE IV PRN (20:32)
[2017-02-03] MEDS: Atorvastatin* 10 MG TAB PO SCH (23:06)
[2017-02-04] MEDS: Levothyroxine TAB* 112 MCG TAB PO SCH (05:50)
[2017-02-04 07:23] LABS: Hematocrit 32 % (35-47); Hemoglobin 10.2 g/dl (12.0-16.0); Mean Corpuscular HGB Conc 32 g/dl (31-36); Mean Corpuscular Hemoglobin 27 pg (27-31); Mean Corpuscular Volume 85 fL (80-97); Mean Platelet Volume 11 um3 (7.4-10.4); Red Blood Count 3.77 10^6/ul (4.0-5.4); Red Cell Distribution Width 21 % (10.5-15); White Blood Count 12.4 10^3/ul (3.5-10.8)
[2017-02-04 07:35] LABS: Albumin 3.2 g/dL (3.2-5.2); BUN/Creatinine Ratio 23.1 (8-20); Calcium 9.1 mg/dL (8.6-10.3); EGFR African American 61.9 (>60); EGFR Non-African American 48.1 (>60); Magnesium 2.1 mg/dL (1.9-2.7); Total Bilirubin 0.8 mg/dL (0.2-1.0); Total Protein 6.2 g/dL (6.4-8.9)
[2017-02-04] MEDS: Morphine INJ* 2 MG/ML 1 ML SYRINGE IV PRN (08:23)
[2017-02-04] MEDS: Metoprolol Succinate XL TAB* 50 MG PO SCH ×2 (10:13→20:08)
[2017-02-04] MEDS: Diltiazem CD CAP* 180 MG PO SCH (10:13)
[2017-02-04] MEDS: Furosemide TAB* 20 MG PO SCH (10:13)
[2017-02-04] MEDS: Docusate CAP* 100 MG PO SCH ×2 (10:13→20:04)
[2017-02-04] MEDS ORDERED: Morphine ORAL CONCENTRATE* 5 MG/0.25 ML ORAL.SYRIN PO PRN ×2 (10:46→10:47)
[2017-02-04] MEDS: Enoxaparin(*) 80 MG/0.8 ML SYR SUBCUT SCH (11:13)
[2017-02-04] MEDS: Albuterol/Ipratropium NEB.SOL* Albuterol 2.5 MG/Ipratropium 0.5 MG 3 ML INH PRN (14:53)
--- NOTE | 2017-02-04 14:55 | PN ---
Progress Note - Progress Note Note: Palliative care prognosis follow up note: Patient had a CAT call on 02/03 for respiratory failure. Patient appears more frail and in acute respiratory distress. Patient is planning to go home with hospice on 02/07. On my encounter, patient having difficulty drinking with face mask in place and tachypneic with SOB. Limited ability to be verbal due to her tachpnea. Wheezing on exam as well. Spoke with Dr. Hinton regarding increasing morphine dose and changing her to nasal cannula and stop checking O2 sats. Goal for the oxygen is for comfort. I tried reaching out to both children regarding the futility of remaining medications, including lovenox and warfarin in a patient with respiratory failure. I am concerned she will not survive to go home with hospice on 02/07. Recommend following up with family members to discontinue further medications and focus on comfort care. Will change her morphine to q1 hr prn SOB.
[2017-02-04] MEDS: Warfarin TAB(*) 7.5 MG PO SCH (17:52)
[2017-02-04] MEDS: Morphine ORAL CONCENTRATE* 5 MG/0.25 ML ORAL.SYRIN PO PRN (20:04)
[2017-02-05] MEDS: Enoxaparin(*) 80 MG/0.8 ML SYR SUBCUT SCH ×3 (00:30→23:33)
[2017-02-05] MEDS: Morphine ORAL CONCENTRATE* 5 MG/0.25 ML ORAL.SYRIN PO PRN ×3 (00:31→14:03)
[2017-02-05] MEDS: Levothyroxine TAB* 112 MCG TAB PO SCH (05:34)
[2017-02-05 06:49] LABS: Hematocrit 30 % (35-47); Hemoglobin 9.7 g/dl (12.0-16.0); Mean Corpuscular HGB Conc 32 g/dl (31-36); Mean Corpuscular Hemoglobin 27 pg (27-31); Mean Corpuscular Volume 85 fL (80-97); Mean Platelet Volume 10 um3 (7.4-10.4); Red Blood Count 3.55 10^6/ul (4.0-5.4); Red Cell Distribution Width 20 % (10.5-15); White Blood Count 12.5 10^3/ul (3.5-10.8)
[2017-02-05] MEDS ORDERED: Morphine ORAL CONCENTRATE* 5 MG/0.25 ML ORAL.SYRIN PO PRN (06:59)
[2017-02-05] MEDS: Diltiazem CD CAP* 180 MG PO SCH (07:51)
[2017-02-05] MEDS: Docusate CAP* 100 MG PO SCH ×2 (07:52→21:33)
[2017-02-05] MEDS: Furosemide TAB* 20 MG PO SCH (07:52)
[2017-02-05] MEDS: Metoprolol Succinate XL TAB* 50 MG PO SCH ×2 (07:52→21:33)
[2017-02-05] MEDS: Albuterol/Ipratropium NEB.SOL* Albuterol 2.5 MG/Ipratropium 0.5 MG 3 ML INH PRN (12:33)
[2017-02-05] MEDS ORDERED: Warfarin TAB(*) 7.5 MG PO ONE (17:00)
[2017-02-06] MEDS: Levothyroxine TAB* 112 MCG TAB PO SCH (05:22)
[2017-02-06] MEDS: Metoprolol Succinate XL TAB* 50 MG PO SCH ×2 (09:06→21:55)
[2017-02-06] MEDS: Furosemide TAB* 20 MG PO SCH (09:23)
[2017-02-06] MEDS: Diltiazem CD CAP* 180 MG PO SCH (09:23)
[2017-02-06] MEDS: Docusate CAP* 100 MG PO SCH ×2 (09:23→21:56)
[2017-02-06] MEDS: Enoxaparin(*) 80 MG/0.8 ML SYR SUBCUT SCH ×2 (11:17→21:55)
[2017-02-06] MEDS: Morphine ORAL CONCENTRATE* 5 MG/0.25 ML ORAL.SYRIN PO PRN (11:47)
[2017-02-06] MEDS ORDERED: Sodium Phosphate ADULT ENEMA* 118 ml bottle PR ONE (14:30)
[2017-02-06] MEDS ORDERED: Glycerin ADULT SUPP PR ONE (15:00)
[2017-02-06] MEDS ORDERED: Warfarin TAB(*) 2.5 MG PO ONE (17:00)
[2017-02-06] MEDS ORDERED: Sodium Phosphate ADULT ENEMA* 118 ml bottle PR PRN (17:57)
[2017-02-07] MEDS: Levothyroxine TAB* 112 MCG TAB PO SCH (06:04)
[2017-02-07 07:58] VITALS: BP 122/65
[2017-02-07] MEDS: Diltiazem CD CAP* 180 MG PO SCH (08:03)
[2017-02-07] MEDS: Docusate CAP* 100 MG PO SCH (08:03)
[2017-02-07] MEDS: Furosemide TAB* 20 MG PO SCH (08:03)
[2017-02-07] MEDS: Metoprolol Succinate XL TAB* 50 MG PO SCH (08:03)
[2017-02-07] MEDS ORDERED: Warfarin TAB(*) 2.5 MG PO ONE (17:00)
--- NOTE | 2017-02-09 06:03 | DS ---
CC: Dr. Murtaza Reyez; Dr. Wallace; [facility] * DISCHARGE SUMMARY: DATE OF ADMISSION: 02/01/17 DATE OF DISCHARGE: 02/07/17 DISCHARGE DIAGNOSES: 1. Pulmonary emboli. 2. History of ascending aortic dissection. 3. History of chronic atrial fibrillation. 4. History of hypertension. 5. Hypothyroidism. 6. History of anxiety. 7. Hyperlipidemia. 8. History of diverticulitis. 9. Osteoarthritis. 10. Question of history of diabetes. 11. History of pacemaker placement for sick sinus syndrome. 12. History of cataract surgeries. 13. History of . 14. 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 15. Anemia. HISTORY: Arlene Lopez is an 87-year-old female admitted with shortness of breath. Please see the dictated admission note for details of the present illness, past medical history, family history, social and personal history, review of systems, and physical examination. DIAGNOSTIC STUDIES/LAB DATA: Laboratory: CBC on 02/01: WBC 8.8; H and H 10.6/ 33; MCV 84; and PLT 282,000. White count subsequently went up, it was 12.5 on 02/05. H and H was 9.7/30 on 02/05. Initial INR 1.22, PTT 27.1, and PTT varied according to heparin infusion. INR subsequently came up to 2.40 on 02/06 and 2.82 on 02/07. Chemistries on admission: Sodium 138, potassium 3.8, chloride 103, CO2 25, BUN and creatinine 11/0.79, glucose 135, and lactic acid 1.8. Rest of her comprehensive metabolic panel was within normal limits. Troponin was mildly elevated at 0.26. C- reactive protein was 43.19. BNP was 555. Rest of her comprehensive metabolic panel was within normal limits. Troponin subsequently peaked at a high of 1.98 on 02/02. Blood cultures were no growth. Imaging: Chest x-ray on 02/01/17 showed no active cardiopulmonary disease. Chest/thorax CTA showed multiple new bilateral pulmonary emboli with right ventricular strain pattern. Aortic dissection involving the ascending and descending thoracic aorta was unchanged. EKG on 02/01/17 showed AFib/flutter and ventricular-paced complexes. EKG on 04/14 showed atrial flutter with controlled ventricular response, nonspecific T- wave abnormalities, minimal ST elevation inferior leads, wandering baseline was noted. The change since the previous record of 02/01 was the paced rhythm was not seen. HOSPITAL COURSE: The patient was initially admitted. Dr. Blackmon, who was the admitting physician, had a long discussion with the patient as well as the patient's primary care provider, Dr. Reyez. It was felt that the patient's dissection was chronic and did not appear to have progressed since the previous month. She did have bilateral pulmonary emboli and was hypoxic without oxygen. It was felt that she was at risk of worsening her respiratory status, the quality of life would definitely decrease. It was felt that the risk of anticoagulation is such that if her aortic dissection progressed or her aorta ruptured, she would with anticoagulation, but if she was not anticoagulated , she would likely of the pulmonary emboli. Because the anticoagulation by itself does not risk the risk of rupturing her aorta and does not actually worsen the dissection, it was felt that she should proceed with anticoagulation. Her Cardizem and metoprolol were continued for control of her ventricular response rate of atrial fibrillation/flutter. Her code status was discussed. She had never signed a do not resuscitate order despite the fact that she had an inoperable aortic dissection. She stated that she would not like to be resuscitated and placed on machines, but would do it if her family requested that. The patient's daughter preferred the patient not be resuscitated without any chance of survival, but was not interested in signing anything. She had a palliative care consultation the following morning. This was done by Dr. Merlos. It was her assessment that the patient was eligible for hospice. She subsequently did sign on to hospice. She was started on p.r.n. morphine and Ativan. She did become DNR the following morning and a MOLST form was filled out. It was felt that her elevated troponin was related to cardiac strain due to the pulmonary embolus. It was felt that she could go off telemetry and that she would be anticoagulated with Lovenox and warfarin. On , she became unresponsive on the toilet. A CAT call was called. She recovered from this. This was when she was having a bowel movement. Initially, her blood pressure was 56/39, respirations 34, and O2 sat 79% with it going up to 98% on 15 L nasal cannula O2. She was unresponsive for about 3 minutes and came to after that and complained of pain all over. It was felt that the episode was likely due to a pulmonary embolus. She gradually improved after that. The following day, she said she did not feel well, but was not specific about why. She had been taking morphine, but only twice in the previous 24 hours. It was felt that she would be going home with hospice. On 02/04, her blood pressure was 96/62. She had rales at the bases. She was placed on comfort care. On the night of 02/04 to 02/05, she had not urinated, so a Colbert catheter was placed. She was taking morphine for dyspnea. Her blood pressure was up to 146/56. I discussed anticoagulation with her family and they preferred for her to remain on it. Her son wished that the anticoagulation had never been stopped. It was felt that she would feel better if she was not having pulmonary emboli and it was reasonable to continue it. She began to eat better. She had some doses of her medications, metoprolol and diltiazem, held because of low pulses. By 02/07, she was feeling much better. Arrangements were made for her to go home on hospice. Her INR was therapeutic. I discussed whether or not to keep the Colbert in with her family. She preferred to keep it in for comfort, so she would not have to move about as much. At the time of discharge, she is to be on a regular diet. Activity as tolerated. She was actually looking much better than she had a few days earlier. MEDICATIONS: Her medications at the time discharge are: 1. Warfarin 5 mg daily or as directed. 2. Levothyroxine 112 mcg daily. 3. Diltiazem XR 180 mg once a day. 4. Metoprolol 50 mg twice a day. 5. Furosemide 20 mg daily. 6. Morphine concentrate 5 mg every 1 hour as needed for shortness of breath or pain, moderate, or 10 mg p.r.n. shortness of breath or pain, severe. 7. Lorazepam 0.5 mg every 2 hours as needed for anxiety. 8. Colace 100 mg twice a day. 9. Vitamin D3 1000 units daily. She is to call Dr. Reyez, [phone], and follow up will be as needed. She will also be followed by [facility]. She should have an INR done at home in 2 days. [id number]/[facility] #: [id number] GURINDER
== END 2017-02-07 11:45 | disposition hospice, home (50) | DRG 175 ==
LOC: ED 11:32 → MEDTELE 15:26 → ICU 16:53 → MED 02-02 07:59
PROVIDERS: ADMIT Internal Medicine; ATTEND Internal Medicine Geriatric Medicine
PROC: 0T9B70Z Drainage of Bladder with Drainage Device, Via Natural or Artificial Opening (ICD-10-PCS; principal; 2017-02-05)
DX: I26.99 Other pulmonary embolism without acute cor pulmonale (principal); I71.01 Dissection of thoracic aorta; J96.01 Acute respiratory failure with hypoxia; I11.0 Hypertensive heart disease with heart failure; I50.9 Heart failure, unspecified; E11.9 Type 2 diabetes mellitus without complications; F03.90 Unspecified dementia, unspecified severity, without behavioral disturbance, psychotic disturbance, mood disturbance, and anxiety; D64.9 Anemia, unspecified; I48.92 Unspecified atrial flutter; Q21.1 Atrial septal defect; M17.0 Bilateral primary osteoarthritis of knee; I25.10 Atherosclerotic heart disease of native coronary artery without angina pectoris; E78.00 Pure hypercholesterolemia, unspecified; R40.2412 Glasgow coma scale score 13-15, at arrival to emergency department; I48.2 Chronic atrial fibrillation; E03.9 Hypothyroidism, unspecified; F41.9 Anxiety disorder, unspecified; M35.3 Polymyalgia rheumatica; K62.3 Rectal prolapse; N81.4 Uterovaginal prolapse, unspecified; I08.0 Rheumatic disorders of both mitral and aortic valves; R26.9 Unspecified abnormalities of gait and mobility; K57.90 Diverticulosis of intestine, part unspecified, without perforation or abscess without bleeding; E78.5 Hyperlipidemia, unspecified; R00.1 Bradycardia, unspecified; Z66 Do not resuscitate; Z51.5 Encounter for palliative care; Z98.42 Cataract extraction status, left eye; Z98.41 Cataract extraction status, right eye; Z82.3 Family history of stroke; Z95.810 Presence of automatic (implantable) cardiac defibrillator; Z82.49 Family history of ischemic heart disease and other diseases of the circulatory system; Z79.01 Long term (current) use of anticoagulants
CPT/HCPCS: 36415; 71020; 71275; 80048; 80053; 82550; 83605; 83735; 83880; 84484; 84520; 85025; 85027; 85610; 85730; 86140; 87040; 87641; 93005; 94640; 94760; A9270-GY; J1644; J1650; J2270; Q9967